=== PATIENT | male | born 1980 | race Caucasian/White ===

== ENCOUNTER 2021-08-08 14:17 | Inpatient (IN) | payer OTHER ==
[~2021-08-08] VITALS: Ht 175.3 cm; Wt 116.9 kg
[2021-08-08] MEDS ORDERED: PROPOFOL 100 ML IV ONE (14:42)
[2021-08-08] MEDS: PROPOFOL 100 ML IV PRN ×2 (14:50→17:42)
[2021-08-08] MEDS ORDERED: ETOMIDATE 20 MG/10 ML VIAL. IV ONE ×2 (15:00→19:36)
[2021-08-08] MEDS ORDERED: VECURONIUM BOLUS 10 MG VIAL. IV ONE ×2 (15:00→19:38)
[2021-08-08] MEDS ORDERED: SUCCINYLCHOLINE 200 MG/10 ML VIAL. IV ONE (15:00)
[2021-08-08] MEDS ORDERED: fentaNYL PF VIAL 100 MCG/2 ML VIAL IV PRN (15:00)
[2021-08-08] MEDS ORDERED: DEXAMETHASONE SOD PHOS 4 MG/ML VIAL IVP ONE (15:00)
[2021-08-08 15:02] LABS: BASO % 0 % (0-3); EOS % 0 % (0-3); HEMATOCRIT 42.2 % (39.0-53.0); HEMOGLOBIN 15.1 g/dL (13.0-17.5); LYMPH # 0.8 x10^3/uL (1.0-4.8); LYMPH % 8 % (24-48); MEAN CORPUSCULAR HEMOGLOBIN 31 pg (25-35); MEAN CORPUSCULAR HGB CONC 36 g/dL (31-37); MEAN CORPUSCULAR VOLUME 86 fL (79-100); MONO # 0.9 x10^3/uL (0.0-1.1); MONO % 9 % (0-9); NEUT # 8.2 x10^3/uL (1.8-7.7); NEUT % 83 % (31-73); PLATELET COUNT 223 x10^3/uL (140-400); RED BLOOD COUNT 4.88 x10^6/uL (4.30-5.70); RED CELL DISTRIBUTION WIDTH 12.9 % (11.5-14.5); WHITE BLOOD COUNT 9.9 x10^3/uL (4.0-11.0)
[2021-08-08 15:04] LABS: BILIRUBIN,URINE NEGATIVE (NEG); CLARITY,URINE CLEAR; COLOR,URINE AMBER; NITRITE,URINE NEGATIVE (NEG); PH,URINE 5.5 (<5.0-8.0); PROTEIN,URINE 100 mg/dL (NEG-TRACE); UROBILINOGEN,URINE 0.2 mg/dL (0.2 mg/dL)
[2021-08-08 15:15] LABS: BACTERIA,URINE 0 /HPF (0-FEW); GRANULAR CASTS,URINE MANY /HPF; WBC,URINE RARE /HPF (0-4)
[2021-08-08 15:16] LABS: CREATININE 1.5 mg/dL (0.7-1.3); GFR 52.1; POTASSIUM 4.2 mmol/L (3.5-5.1)
[2021-08-08 15:22] LABS: ALBUMIN 2.7 g/dL (3.4-5.0); ALBUMIN/GLOBULIN RATIO 0.6 (1.0-1.7); TOTAL BILIRUBIN 1.3 mg/dL (0.2-1.0); TOTAL PROTEIN 7.4 g/dL (6.4-8.2)
--- NOTE | 2021-08-08 15:25 | PHYS DOC ---
General Adult EDM: Chief Complaint: SHORTNESS OF BREATH HPI: HPI: Patient is a 41 year old male who presents from [facility] with respiratory distress. He tested positive for Covid. He has had symptoms for 1 week. He has had cough and shortness of breath. Per report he was diagnosed with a COVID-19 pneumonia. He was given azithromycin and prednisone for treatment. He continued to worsen and today showed signs of respiratory distress. When EMS arrived they applied 15 L nonrebreather and he was only able to maintain sats of 69%. Patient denies having chest pain. Speaking in one-word responses. But is alert and oriented. Patient denies any medical problems, chronic medications, or allergies. Per facility, was found satting 47% on room air. Nasal cannula only brought up to 50%. Nonrebreather brought up to 63%. Unknown date of positive Covid test Review of Systems: Review of Systems: Unable to complete full review of systems due to severe respiratory distress. Heart Score: C/O Chest Pain: No Risk Factors: Risk Factors: DM, Current or recent (<one month) smoker, HTN, HLP, family history of CAD, obesity. Risk Scores: Score 0 - 3: 2.5% MACE over next 6 weeks - Discharge Home Score 4 - 6: 20.3% MACE over next 6 weeks - Admit for Clinical Observation Score 7 - 10: 72.7% MACE over next 6 weeks - Early Invasive Strategies Current Medications: Current Medications Medications (Trade) Dose Ordered Sig/Magalis Start Time Stop Time Status Last Admin Dose Admin Chlorhexidine Gluconate (Peridex) 15 ml BID 08/08/21 21:00 Dexamethasone Sodium Phosphate (Decadron) 6 mg 1X ONCE 08/08/21 15:00 08/08/21 15:03 DC Etomidate (Amidate) 20 mg 1X ONCE 08/08/21 15:00 08/08/21 15:01 DC Fentanyl Citrate (Fentanyl 2ml Vial) 50 mcg PRN Q20MIN PRN 08/08/21 15:00 Midazolam HCl 100 ml @ 0 mls/hr CONT PRN 08/08/21 15:00 Propofol 100 ml @ 0 mls/hr CONT PRN 08/08/21 15:00 Succinylcholine Chloride (Anectine) 150 mg 1X ONCE 08/08/21 15:00 08/08/21 15:01 DC Vecuronium [place] (Norcuron Bolus) 6 mg 1X ONCE 08/08/21 15:00 08/08/21 15:01 DC Allergies: Allergies: Allergies Coded Allergies Type Severity Reaction Last Updated Verified No Known Drug Allergies 08/08/21 No Physical Exam: PE: Constitutional: In clear respiratory distress, respiratory rate in the 60s, accessory muscle usage, central cyanosis present.. [] Eyes: Pupils 3 mm, equal round, reactive to. [] Neck:supple, no stridor. [] Cardiovascular: Tachycardic. Regular rhythm, no murmur [] Lungs & Thorax: Bilateral crackles diffusely. As above respiratory distress with RR in 60s and signs of fatigue. O2 sat 70% on nonrebreather. BVM assisted ventilations only brought O2 sat to 80%. [] Abdomen: Bowel sounds normal, soft, no tenderness, no masses, no pulsatile masses. [] Skin: Warm, dry, no erythema, no rash. [] Back: No tenderness, no CVA tenderness. [] Extremities: No tenderness, no cyanosis, no clubbing, ROM intact, no edema. [] Neurologic: Alert and oriented X 3, normal motor function, normal sensory function, no focal deficits noted. [] Psychologic: Affect normal, judgement normal, mood normal. [] Current Patient Data: Labs: Laboratory Tests Test 08/08/21 14:39 White Blood Count 9.9 x10^3/uL (4.0-11.0) Red Blood Count 4.88 x10^6/uL (4.30-5.70) Hemoglobin 15.1 g/dL (13.0-17.5) Hematocrit 42.2 % (39.0-53.0) Mean Corpuscular Volume 86 fL (79-100) Mean Corpuscular Hemoglobin 31 pg (25-35) Mean Corpuscular Hemoglobin Concent 36 g/dL (31-37) Red Cell Distribution Width 12.9 % (11.5-14.5) Platelet Count 223 x10^3/uL (140-400) Neutrophils (%) (Auto) 83 % (31-73) H Lymphocytes (%) (Auto) 8 % (24-48) L Monocytes (%) (Auto) 9 % (0-9) Eosinophils (%) (Auto) 0 % (0-3) Basophils (%) (Auto) 0 % (0-3) Neutrophils # (Auto) 8.2 x10^3/uL (1.8-7.7) H Lymphocytes # (Auto) 0.8 x10^3/uL (1.0-4.8) L Monocytes # (Auto) 0.9 x10^3/uL (0.0-1.1) Eosinophils # (Auto) 0.0 x10^3/uL (0.0-0.7) Basophils # (Auto) 0.0 x10^3/uL (0.0-0.2) Laboratory Tests 08/08/21 14:39 Vital Signs: Vital Signs Date Time Temp Pulse Resp B/P (MAP) Pulse Ox O2 Delivery O2 Flow Rate FiO2 08/08/21 14:50 96 Ventilator EKG: EKG: Sinus rhythm. Rate 125. Normal axis. Normal intervals. No acute ST segment changes. No Q waves or T wave inversions. [] Radiology/Procedures: Radiology/Procedures: Wet read: Bilateral patchy opacities. ETT in appropriate position. OG tube below the diaphragm. [] [facility] [address] [place] [address] IMAGING REPORT Signed PATIENT: MARISEL RENEE ACCOUNT: [id number] : 1980 LOCATION: ER AGE: 41 SEX: M EXAM STATUS: REG ER ORD. PHYSICIAN: YAZMIN COLLADO MD REASON: COVID, POST-INTUBATION PROCEDURE: CHEST AP ONLY XR CHEST 1V CLINICAL INDICATIONS: Reason: COVID, POST-INTUBATION COMPARISON: None available. Findings: ET tube is in place and the tip is located 4 cm above the level of the bill. NG tube is in place and the tip is seen extending to the proximal body of the stomach. A short right IJ catheter is apparent and the tip is seen within the upper aspect of the right IJ. No pneumothorax is seen. Bilateral lung infiltrates or pulmonary edema are evident. No pneumothorax or pleural effusion is seen. The heart size and mediastinum are unremarkable. IMPRESSION: Bilateral lung infiltrates or pulmonary edema. No pneumothorax is seen. Tube/line placement as discussed above. Electronically signed by: Christophe Saeed MD (08/08/2021 3:38 PM) [id number] DICTATED and SIGNED BY: CHRISTOPHE SAEED MD DATE: 08/08/21 [id number] Impression: Indication: Respiratory failure Consent: Patient did give consent prior to intubation. Designated that he is full code. Medications Used: Etomidate 20 mg, succinylcholine 150 mg Procedure: The patient was placed in the appropriate position. Intubation was performed with a glide scope as for video laryngoscopy. 1st pass success. 7.5 endotracheal tube. Secured at 23 cm at the teeth. Initial confirmation of placement included bilateral breath sounds, tube fogging, adequate chest rise, adequate pulse oximetry reading. A chest x-ray to verify correct placement of the tube showed appropriate tube position. The patient tolerated the procedure well. Complications: Patient was hypoxic prior to intubation attempt and were unable to preoxygenate due to his respiratory failure. Despite no significant delay during the procedure, his O2 sat dropped to 33%. Recovered over several minutes to the high 80s with bag ventilation. ------ Indication: Need for vascular access. Consent: Emergent condition. Patient consented to treatment as needed prior to intubation. Vascular access was not specifically discussed.. Procedure: The patient was positioned appropriately and the skin over the right internal jugular was prepped and draped in a sterile fashion. Local anesthesia was used. Ultrasound guidance utilized. A large bore needle was used to identify the vein. A guide wire was then inserted into the vein through the needle. A triple lumen catheter was then inserted into the vessel over the guide wire using the Seldinger technique. All ports showed good, free flowing blood return and were flushed with saline solution. The catheter was then securely fastened to the skin with sutures and covered with a sterile dressing and B iopatch. A post procedure X-ray was ordered. 7 [place] 20 cm catheter 16 cm at the skin. The patient tolerated the procedure well. Complications: none. [] Course & Med Decision Making: Course & Med Decision Making Pertinent Labs and Imaging studies reviewed. (See chart for details) Patient a 41-year-old male without pertinent chronic medical history who presents in custody from [facility] in respiratory distress in the setting of a known COVID-19 infection. Prehospital O2 sats 69% with nonrebreather at 15 L/min. Tachycardic, but otherwise vital signs stable. On arrival he continues to be hypoxic, assisted BVM ventilations brought O2 sat only to 82% while starting an IV line. Due to severe respiratory distress he was intubated. Prior to intubation patient confirmed wishes for FULL CODE status. CXR c/w COVID 19 and ARDS. Dexamethasone IV ordered. Versed and propofol drips ordered. Fentanyl drip unavailable in the ED. Fentanyl and Versed boluses as needed. Due to persistent hypoxia vecuronium was given for paralysis to stabilize respiratory status. Pulmonary consult placed. Patient will be admitted to hospitalist ICU level care. --- dimer, trop, bnp all significantly elevated. With such signficiant hypoxia will obtain CTA to exclude PE, will also evaluate degree of lung injury. 1541 Critical care time: 70 minutes excluding procedures in the care of life- threatening respiratory failure in the setting COVID-19 infection. Dragon Disclaimer: Dragon Disclaimer: This electronic medical record was generated, in whole or in part, using a voice recognition dictation system. Departure Departure Impression: Primary Impression: Acute respiratory distress syndrome (ARDS) due to COVID-19 virus Additional Impressions: Hyponatremia NSTEMI (non-ST elevated myocardial infarction) Disposition: ADMITTED INPATIENT Condition: GRAVE Referrals: UNKNOWN PCP NAME (PCP) YAZMIN COLLADO MD Aug 08, 2021 15:25
[2021-08-08] MEDS ORDERED: fentaNYL PF VIAL 100 MCG/2 ML VIAL IVP ONE (15:30)
[2021-08-08] MEDS ORDERED: 0.9 % SODIUM CHLORIDE 10 ML DISP.SYRIN. IV PRN (15:30)
[2021-08-08] MEDS ORDERED: MIDAZOLAM HCL/PF 2 MG/2 ML VIAL. IV ONE ×2 (15:30)
[2021-08-08] MEDS ORDERED: ONDANSETRON PF 4 MG/2 ML VIAL. IVP PRN (15:30)
[2021-08-08] MEDS ORDERED: MORPHINE SULFATE 2 MG/ML INJ. IV PRN ×2 (15:30)
--- NOTE | 2021-08-08 15:40 | RAD ---
XR CHEST 1V CLINICAL INDICATIONS: Reason: COVID, POST-INTUBATION COMPARISON: None available. Findings: ET tube is in place and the tip is located 4 cm above the level of the bill. NG tube is i n place and the tip is seen extending to the proximal body of the stomach. A short right IJ catheter is apparent and the tip is seen within the upper aspect of the right IJ. No pneumothorax is seen. Gee ateral lung infiltrates or pulmonary edema are evident. No pneumothorax or pleural effusion is seen. The heart size and mediastinum are unremarkable. IMPRESSION: Bilateral lung infiltrates or pulmonary edema. No pneumothorax is seen. Tube/line placeme nt as discussed above. Electronically signed by: Tyrone Saeed MD (08/08/2021 3:38 PM) [id number]
[2021-08-08] MEDS: MIDAZOLAM 100mg/100ml NS BAG 100 ML IV PRN (15:43)
[2021-08-08] MEDS ORDERED: HEPARIN 25,000UTS/250ML PREMIX 250 ML IV PRN (15:45)
[2021-08-08] MEDS ORDERED: HEPARIN for IV BOLUS 10,000 UNIT/10 ML VIAL. IV ONE ×2 (15:45→16:00)
[2021-08-08] MEDS ORDERED: PIP/TAZO PER PHARMACY MC PRN (15:45)
[2021-08-08] MEDS ORDERED: HEPARIN for IV BOLUS 10,000 UNIT/10 ML VIAL. IV PRN ×2 (15:45)
[2021-08-08] MEDS: fentaNYL PF VIAL 100 MCG/2 ML VIAL IV PRN ×2 (15:46→16:29)
--- NOTE | 2021-08-08 15:47 | PDOC1 ---
History and Physical Date of Service: DOS: DATE: 08/08/21 TIME: 15:41 Chief Complaint: Problems: (1) Pneumonia due to COVID-19 virus (2) Respiratory failure History of Present Illness: HPI: Patient intubated and sedated upon my assessment thus H&P from emergency room b blessing Patient is a 41 year old male who presents from [facility] with respiratory distress. He tested positive for Covid. He has had symptoms for 1 week. He has had cough and shortness of breath. Per report he was diagnosed with a COVID-19 pneumonia. He was given azithromycin and prednisone for treatment. He continued to worsen and today showed signs of respiratory distress. When EMS arrived they applied 15 L nonrebreather and he was only able to maintain sats of 69%. Patient denies having chest pain. Speaking in one-word responses. But is alert and oriented. Patient denies any medical problems, chronic medications, or allergies. Code chill was found satting 47% on room air. Nasal cannula only brought up to 50%. Nonrebreather brought up to 63%. Unknown date of positive Covid test Past Medical/Surgical History: PMH/PSH: Unknown Allergies: Allergies: Coded Allergies: No Known Drug Allergies (Unverified , 08/08/21) Family History: Family History: Unknown Social History: Social History: Unknown Current Medications: Current Medications Current Medications Propofol 100 ml @ As Directed STK-MED ONCE IV ; Start 08/08/21 at 14:42; Stop 08/08/21 at 14:43; Status DC Fentanyl Citrate 30 ml @ 0 mls/hr CONT PRN IV SEE PROTOCOL; Start 08/08/21 at 15:00 Propofol 100 ml @ 0 mls/hr CONT PRN IV PER PROTOCOL; Start 08/08/21 at 15:00 Fentanyl Citrate (Fentanyl 2ml Vial) 25 mcg PRN Q20MIN PRN IV SEE COMMENTS; Start 08/08/21 at 15:00 Fentanyl Citrate (Fentanyl 2ml Vial) 50 mcg PRN Q20MIN PRN IV SEE COMMENTS; Start 08/08/21 at 15:00 Chlorhexidine Gluconate (Peridex) 15 ml BID MM ; Start 08/08/21 at 21:00 Midazolam HCl 100 ml @ 0 mls/hr CONT PRN IV SEE PROTOCOL; Start 08/08/21 at 15: 00 Vecuronium [place] (Norcuron Bolus) 6 mg 1X ONCE IV ; Start 08/08/21 at 15:00; Stop 08/08/21 at 15:01; Status DC Succinylcholine Chloride (Anectine) 150 mg 1X ONCE IV ; Start 08/08/21 at 15:00; Stop 08/08/21 at 15:01; Status DC Etomidate (Amidate) 20 mg 1X ONCE IV ; Start 08/08/21 at 15:00; Stop 08/08/21 at 15:01; Status DC Dexamethasone Sodium Phosphate (Decadron) 6 mg 1X ONCE IVP ; Start 08/08/21 at 15:00; Stop 08/08/21 at 15:03; Status DC Acetaminophen (Tylenol) 650 mg PRN Q6HRS PRN PO Headaches, Temp > 101.5'; Start 08/08/21 at 15:30 Lorazepam (Ativan) 1 mg PRN Q6HRS PRN PO ANXIETY / AGITATION; Start 08/08/21 at 15:30 Ondansetron HCl (Zofran) 4 mg PRN Q6HRS PRN IVP NAUSEA/VOMITING; Start 08/08/21 at 15:30 Famotidine (Pepcid Vial) 20 mg BID IVP ; Start 08/08/21 at 21:00 Info (Icu Electrolyte Protocol) 1 ea DAILY MC ; Start 08/09/21 at 09:00 Enoxaparin Sodium (Lovenox 40mg Syringe) 40 mg Q12HR SQ ; Start 08/08/21 at 21:00 Sodium Chloride (Normal Saline Flush) 3 ml QSHIFT PRN IV AFTER MEDS AND BLOOD DRAWS; Start 08/08/21 at 15:30 Morphine Sulfate (Morphine Sulfate) 1 mg PRN Q1HR PRN IV PAIN; Start 08/08/21 at 15:30 Morphine Sulfate (Morphine Sulfate) 2 mg PRN Q1HR PRN IV PAIN; Start 08/08/21 at 15:30 Senna/Docusate Sodium (Senna Plus) 1 tab BID PO ; Start 08/08/21 at 21:00 Midazolam HCl (Versed) 2 mg 1X ONCE IV ; Start 08/08/21 at 15:30; Stop 08/08/21 at 15:34; Status DC Midazolam HCl (Versed) 2 mg 1X ONCE IV ; Start 08/08/21 at 15:30; Stop 08/08/21 at 15:34; Status DC Fentanyl Citrate (Fentanyl 2ml Vial) 100 mcg 1X ONCE IVP ; Start 08/08/21 at 15:30; Stop 08/08/21 at 15:34; Status DC Dexamethasone Sodium Phosphate (Decadron) 6 mg DAILY IVP ; Start 08/09/21 at 09:00 Piperacillin Sod/ Tazobactam Sod (Zosyn Per Pharmacy) 1 each PRN DAILY PRN MC SEE COMMENTS; Start 08/08/21 at 15:45 Azithromycin (Zithromax) 500 mg 1X ONCE PO ; Start 08/08/21 at 16:00; Stop 08/08/21 at 16:01 Multivitamins/ Minerals Therapeutic (Centrum Multivit-Mineral Liq) 5 ml DAILY PEG ; Start 08/09/21 at 09:00 Aspirin (Ecotrin) 81 mg DAILYWBKFT PO ; Start 08/09/21 at 08:00 Remdesivir 200 mg/ Sodium Chloride 210 ml @ 210 mls/hr 1X ONCE IV ; Start 08/08/21 at 17:00; Stop 08/08/21 at 17:59 Remdesivir 100 mg/ Sodium Chloride 230 ml @ 460 mls/hr Q24H IV ; Start 08/09/21 at 17:00; Stop 08/12/21 at 17:29 ROS: Review of Systems Review of System Cannot obtain Physical Exam: Vital Signs: Vital Signs Date Time Temp Pulse Resp B/P (MAP) Pulse Ox O2 Delivery O2 Flow Rate FiO2 08/08/21 14:50 96 Ventilator Physcial Exam: GEN: Patient intubated and sedated HEENT: Normal cephalic, atraumatic, external auditory canals are patentpupil are equally round and reactive to light and accommodation HEMATOPOIETIC: No bruising NECK: Supple, no JVD, no thyromegaly was noted LUNGS: Patient on mechanical ventilation, breath sounds difficult to hear but are very coarse from what I can tell HEART: RRR, S1, S2 present. Peripheral pulses intact, no obvious murmurs noted ABDOMEN: Soft, nontender. Positive bowel sounds, no organomegaly, normal bowel sounds EXTREMITIES: Without clubbing, cyanosis, or edema. Pedal pulses intact. NEUROLOGIC: Intubated sedated PSYCHIATRIC: Cannot obtain SKIN: No ulcerations or rashes, good skin turgor, no jaundice VASCULAR: Good capillary refill, neurovascular bundle appears to be intact Labs: Labs: Laboratory Tests Test 08/08/21 14:39 White Blood Count 9.9 x10^3/uL (4.0-11.0) Red Blood Count 4.88 x10^6/uL (4.30-5.70) Hemoglobin 15.1 g/dL (13.0-17.5) Hematocrit 42.2 % (39.0-53.0) Mean Corpuscular Volume 86 fL (79-100) Mean Corpuscular Hemoglobin 31 pg (25-35) Mean Corpuscular Hemoglobin Concent 36 g/dL (31-37) Red Cell Distribution Width 12.9 % (11.5-14.5) Platelet Count 223 x10^3/uL (140-400) Neutrophils (%) (Auto) 83 % (31-73) Lymphocytes (%) (Auto) 8 % (24-48) Monocytes (%) (Auto) 9 % (0-9) Eosinophils (%) (Auto) 0 % (0-3) Basophils (%) (Auto) 0 % (0-3) Neutrophils # (Auto) 8.2 x10^3/uL (1.8-7.7) Lymphocytes # (Auto) 0.8 x10^3/uL (1.0-4.8) Monocytes # (Auto) 0.9 x10^3/uL (0.0-1.1) Eosinophils # (Auto) 0.0 x10^3/uL (0.0-0.7) Basophils # (Auto) 0.0 x10^3/uL (0.0-0.2) D-Dimer (Dia) 3.98 ug/mlFEU (0.00-0.50) Urine Collection Type U cath Urine Color Emily Urine Clarity Clear Urine pH 5.5 (<5.0-8.0) Urine Specific [place] 1.025 (1.000-1.030) Urine Protein 100 mg/dL (NEG-TRACE) Urine Glucose (UA) Negative mg/dL (NEG) Urine Ketones (Stick) 15 mg/dL (NEG) Urine Blood Large (NEG) Urine Nitrite Negative (NEG) Urine Bilirubin Negative (NEG) Urine Urobilinogen Dipstick 0.2 mg/dL (0.2 mg/dL) Urine Leukocyte Esterase Negative (NEG) Urine RBC 6-10 /HPF (0-2) Urine WBC Rare /HPF (0-4) Urine Squamous Epithelial Cells Occ /LPF Urine Bacteria 0 /HPF (0-FEW) Urine Granular Casts Many /HPF Sodium Level 128 mmol/L (136-145) Potassium Level 4.2 mmol/L (3.5-5.1) Chloride Level 91 mmol/L (98-107) Carbon Dioxide Level 23 mmol/L (21-32) Anion Gap 14 (6-14) Blood Urea Nitrogen 26 mg/dL (8-26) Creatinine 1.5 mg/dL (0.7-1.3) Estimated GFR (Cockcroft-Gault) 52.1 BUN/Creatinine Ratio 17 (6-20) Glucose Level 104 mg/dL (70-99) Calcium Level 8.0 mg/dL (8.5-10.1) Total Bilirubin 1.3 mg/dL (0.2-1.0) Aspartate Amino Transf (AST/SGOT) 361 U/L (15-37) Alanine Aminotransferase (ALT/SGPT) 224 U/L (16-63) Alkaline Phosphatase 68 U/L (46-116) Troponin I Quantitative 1.148 ng/mL (0.000-0.055) XH-Prq-B-Type Natriuretic Peptide 1363 pg/mL (0-124) Total Protein 7.4 g/dL (6.4-8.2) Albumin 2.7 g/dL (3.4-5.0) Albumin/Globulin Ratio 0.6 (1.0-1.7) Laboratory Tests Test 08/08/21 14:39 White Blood Count 9.9 x10^3/uL (4.0-11.0) Red Blood Count 4.88 x10^6/uL (4.30-5.70) Hemoglobin 15.1 g/dL (13.0-17.5) Hematocrit 42.2 % (39.0-53.0) Mean Corpuscular Volume 86 fL (79-100) Mean Corpuscular Hemoglobin 31 pg (25-35) Mean Corpuscular Hemoglobin Concent 36 g/dL (31-37) Red Cell Distribution Width 12.9 % (11.5-14.5) Platelet Count 223 x10^3/uL (140-400) Neutrophils (%) (Auto) 83 % (31-73) Lymphocytes (%) (Auto) 8 % (24-48) Monocytes (%) (Auto) 9 % (0-9) Eosinophils (%) (Auto) 0 % (0-3) Basophils (%) (Auto) 0 % (0-3) Neutrophils # (Auto) 8.2 x10^3/uL (1.8-7.7) Lymphocytes # (Auto) 0.8 x10^3/uL (1.0-4.8) Monocytes # (Auto) 0.9 x10^3/uL (0.0-1.1) Eosinophils # (Auto) 0.0 x10^3/uL (0.0-0.7) Basophils # (Auto) 0.0 x10^3/uL (0.0-0.2) D-Dimer (Dia) 3.98 ug/mlFEU (0.00-0.50) Urine Collection Type U cath Urine Color Emily Urine Clarity Clear Urine pH 5.5 (<5.0-8.0) Urine Specific [place] 1.025 (1.000-1.030) Urine Protein 100 mg/dL (NEG-TRACE) Urine Glucose (UA) Negative mg/dL (NEG) Urine Ketones (Stick) 15 mg/dL (NEG) Urine Blood Large (NEG) Urine Nitrite Negative (NEG) Urine Bilirubin Negative (NEG) Urine Urobilinogen Dipstick 0.2 mg/dL (0.2 mg/dL) Urine Leukocyte Esterase Negative (NEG) Urine RBC 6-10 /HPF (0-2) Urine WBC Rare /HPF (0-4) Urine Squamous Epithelial Cells Occ /LPF Urine Bacteria 0 /HPF (0-FEW) Urine Granular Casts Many /HPF Sodium Level 128 mmol/L (136-145) Potassium Level 4.2 mmol/L (3.5-5.1) Chloride Level 91 mmol/L (98-107) Carbon Dioxide Level 23 mmol/L (21-32) Anion Gap 14 (6-14) Blood Urea Nitrogen 26 mg/dL (8-26) Creatinine 1.5 mg/dL (0.7-1.3) Estimated GFR (Cockcroft-Gault) 52.1 BUN/Creatinine Ratio 17 (6-20) Glucose Level 104 mg/dL (70-99) Calcium Level 8.0 mg/dL (8.5-10.1) Total Bilirubin 1.3 mg/dL (0.2-1.0) Aspartate Amino Transf (AST/SGOT) 361 U/L (15-37) Alanine Aminotransferase (ALT/SGPT) 224 U/L (16-63) Alkaline Phosphatase 68 U/L (46-116) Troponin I Quantitative 1.148 ng/mL (0.000-0.055) GE-Pdy-R-Type Natriuretic Peptide 1363 pg/mL (0-124) Total Protein 7.4 g/dL (6.4-8.2) Albumin 2.7 g/dL (3.4-5.0) Albumin/Globulin Ratio 0.6 (1.0-1.7) Assessment/Plan Assessment/Plan Patient is 41-year-old rolled presented the emergency room today due to COVID-19 pneumonia with worsening oxygen status. Acute hypoxic respiratory failure secondary to Covid pneumonia, incarcerated patient, troponinemia concern for NSTEMI versus STEMI -Patient presented to emergency room today due to worsening Covid symptoms: Was diagnosed at his shelter had been treated with prednisone and azithromycin -Required endotracheal intubation in emergency room, sedated when evaluated -Covid [address] -Consult to pulmonary -ICU admission -Patient with very elevated troponins as well -Awaiting EKG, starting heparin drip trend troponins -Wean oxygen as tolerated -Wean sedation as tolerated Justifications for Admission Other Justification KYRA RUIZ MD Aug 08, 2021 15:47
[2021-08-08] MEDS ORDERED: AZITHROMYCIN 250 MG TABLET. PO ONE (16:00)
[2021-08-08] MEDS ORDERED: IV NORMAL SALINE 1000ML BAG 1,000 ML IV ONE (16:00)
[2021-08-08] MEDS ORDERED: MIDAZOLAM HCL/PF 5 MG/5 ML VIAL. IV ONE ×2 (16:15)
[2021-08-08] MEDS ORDERED: IOHEXOL 350 MG/ML 100 ML VIAL. IV ONE (16:45)
[2021-08-08] MEDS ORDERED: CONTRAST GIVEN. MC PRN (16:45)
[2021-08-08 16:50] LABS: BASE EXCESS COOX -2 mmol/L (-3-3); HCO3 COOX 25 mmol/L (21-28); METHEMOGLOBIN 0.7 % (0.0-1.9); OXYHEMOGLOBIN 92.6 %; PCO2 COOX 46 mmHg (35-46); PO2 COOX 82 mmHg (75-108); SAT O2 COOX 94 % (92-99)
[2021-08-08] MEDS ORDERED: REMDESIVIR LOAD in IV NORMAL SALINE 250ML TV IV ONE (17:00)
--- NOTE | 2021-08-08 17:41 | RAD ---
XR CHEST 1V Clinical History: Reason: s/p R IJ placement / Spl. Instructions: / History: Technique: AP view of the chest was obtained at 08/08/2021 5:33 PM. Comparison: 2:56 PM. Findings: There is been interval placement of right jugular line with its tip directed downward in the mid SVC. The intrarenal tube appears well-positioned with its tip in the midtrachea and enteric tube is again seen with its tip in the mid stomach. The heart is top normal limits in size. The pulmonary vessels appear somewhat full and congested and there is perihilar linear reticular opacities bilaterally. Impression: 1. Right jugular line well-positioned. No pneumothorax. 2. Bilateral pulmonary infiltrates appears moderately improved and could be resolving pulmonary edema . Electronically signed by: Thomas Flanagan III, MD (08/08/2021 5:39 PM) [id number]
[2021-08-08] MEDS: PIPERACILLIN/TAZOBACTAM 3.375 GM in IV NORMAL SALINE 50ML 50 ML IV SCH (17:46)
[2021-08-08] MEDS ORDERED: AZITHROMYCIN 500 MG in IV NORMAL SALINE 250ML 250 ML IV ONE (18:30)
--- NOTE | 2021-08-08 18:52 | EKG ---
[facility] [address] [place] [address] Test Date: 2021-08-08 Test Time: 15:51:32 Pat Name: MARISEL RENEE Department: Room: 112 1 Gender: M Floral Associate: : 1980 Requested By: KYRA RUIZ Order Number: [id number] Reading MD: Carlos Cardona Measurements Intervals Lindsay Rate: 125 P: 250 KS: 116 QRS: 71 QRSD: 86 T: 56 QT: 308 QTc: 446 Interpretive Statements SINUS TACHYCARDIA LEFT ATRIAL ABNORMALITY ABNORMAL ECG RI6.02 No previous ECG available for comparison Electronically Signed On 08-10-2021 13:23:23 CDT by Carlos Cardona
[2021-08-08 19:15] VITALS: BP 93/65
--- NOTE | 2021-08-08 19:24 | RAD ---
Exam: CT of chest with contrast INDICATION: Covid, hypoxia, elevated d-dimer TECHNIQUE: Sequential axial images through the chest obtained following the administration of 80 mL o f Omni 350 IV contrast. Sagittal and coronal reformatted images were reconstructed from the axial herman a and reviewed. 3-D reformatted images were reconstructed from the axial data and reviewed. Exposure: One or more of the following in the visualized dose reduction techniques were utilized for this examination: 1. Automated exposure control 2. Adjustment of the MA and/or KV according to patient size 3. Use of iterative of reconstructive technique Comparisons: Chest x-ray same day FINDINGS: Visualized portions of the thyroid are unremarkable. Several prominent but not enlarged mediastinal l ymph nodes are identified. Heart size is normal. No pericardial effusion. Thoracic aorta has a normal course and caliber. Pulmon benedict artery is not enlarged. No pulmonary embolus identified within the main, lobar or segmental pulmo nary arteries. Airways are patent. Endotracheal tube noted within the trachea. Extensive groundglass opacity noted l ungs bilaterally. No pneumothorax. No pleural effusion or thickening. Diffuse hepatic steatosis. Enteric tube with tip in the stomach. No suspicious osseous lesions or acute fractures. IMPRESSION: 1. No pulmonary embolus identified in the main, lobar or segmental pulmonary arteries. 2. Extensive bilateral airspace disease favored to be infectious or inflammatory in etiology. Electronically signed by: Kizzy Rodriguez MD (08/08/2021 7:21 PM) [facility]
[2021-08-08] MEDS ORDERED: SUCCINYLCHOLINE 200 MG/10 ML VIAL. ONE (19:36)
[2021-08-08 20:00] VITALS: BP 80/55
[2021-08-08 21:00] VITALS: BP 77/62
[2021-08-08] MEDS ORDERED: ENOXAPARIN 40 MG/0.4 ML SYRINGE. SQ SCH (21:00)
[2021-08-08] MEDS: HEPARIN 25,000UTS/250ML PREMIX 250 ML IV PRN (21:33)
[2021-08-08] MEDS: SENNOSIDES/DOCUSATE 8.6/50MG TABLET. PO SCH (21:58)
[2021-08-08] MEDS: CHLORHEXIDINE 0.12% 15 ML MOUTHWASH. MM SCH (21:58)
[2021-08-08] MEDS: FAMOTIDINE 20 MG/2 ML VIAL IVP SCH (21:59)
[2021-08-08 22:00] VITALS: BP 85/59
[2021-08-08 23:00] VITALS: BP 84/58
[2021-08-09] VITALS (24 sets, daily range): BP systolic 78–119; BP diastolic 46–66
[2021-08-09] MEDS: PIPERACILLIN/TAZOBACTAM 3.375 GM in IV NORMAL SALINE 50ML 50 ML IV SCH ×4 (00:07→16:57)
[2021-08-09 03:59] LABS: HEMATOCRIT 36.9 % (39.0-53.0); HEMOGLOBIN 12.8 g/dL (13.0-17.5); RED BLOOD COUNT 4.2 x10^6/uL (4.30-5.70); RED CELL DISTRIBUTION WIDTH 12.8 % (11.5-14.5); WHITE BLOOD COUNT 7.7 x10^3/uL (4.0-11.0)
[2021-08-09] MEDS ORDERED: ASPIRIN ENTERIC COATED 81 MG TABLET.DR. PO SCH (08:00)
[2021-08-09] MEDS: ASPIRIN CHEWABLE 81 MG TABLET. PO SCH (08:11)
[2021-08-09] MEDS: SENNOSIDES/DOCUSATE 8.6/50MG TABLET. PO SCH ×2 (08:11→21:12)
[2021-08-09] MEDS: CHLORHEXIDINE 0.12% 15 ML MOUTHWASH. MM SCH ×2 (08:11→21:12)
[2021-08-09] MEDS: MULTIVITAMINS,THERAPEUTIC 5 ML ORAL LIQUID. PEG SCH (08:12)
[2021-08-09] MEDS: DEXAMETHASONE SOD PHOS 4 MG/ML VIAL IVP SCH (08:16)
[2021-08-09] MEDS: FAMOTIDINE 20 MG/2 ML VIAL IVP SCH ×2 (08:17→21:12)
[2021-08-09 08:39] LABS: BASE EXCESS ABG 4 mmol/L (-3-3); HCO3 ABG 28 mmol/L (21-28); PCO2 ABG 43 mmHg (35-46); PO2 ABG 79 mmHg (75-108); SAT O2 ABG 95 % (92-99)
[2021-08-09 08:41] LABS: FIO2 ABG 100
[2021-08-09] MEDS: ELECTROLYTE (ICU) PROTOCOL. MC SCH (09:00)
--- NOTE | 2021-08-09 10:42 | PDOC ---
[employer] PROGRESS NOTE Date of Service DOS: DATE: 08/09/21 TIME: 10:36 Chief Complaint Chief Complaint Acute hypoxic respiratory failure secondary to over 19 pneumonia NSTEMI Incarceration -Patient presented to emergency room today due to worsening Covid symptoms: Was diagnosed at his care home had been treated with prednisone and azithromycin -Required endotracheal intubation in emergency room, sedated when evaluated -Covid [address] -Consult to pulmonary -ICU admission -Patient with very elevated troponins as well -Awaiting EKG, starting heparin drip trend troponins -Wean oxygen as tolerated -Wean sedation as tolerated History of Present Illness History of Present Illness Patient is a 41 year old male who [facility] with respiratory distress. He tested positive for Covid. He has had symptoms for 1 week. He has had cough and shortness of breath. Per report he was diagnosed with a COVID-19 pneumonia. He was given azithromycin and prednisone for treatment. He continued to worsen and today showed signs of respiratory distress. When EMS arrived they applied 15 L nonrebreather and he was only able to maintain sats of 69%. Patient denies having chest pain. Speaking in one-word responses. But is alert and oriented. Patient denies any medical problems, chronic medications, or allergies 08/09/2021: Patient seen and evaluated. Afebrile, on vent with FiO2 100%, PEEP 10. Tested COVID-19 positive prior to admission yesterday. We will continue treatment with COVID-19 pneumonia with remdesivir (day 2/5), Decadron 6 mg daily to complete 10-day course, and empiric antibiotics. Will maintain patient on heparin infusion due to elevated troponins. Will follow cardiology recommendations. Appreciate pulmonology and cardiology input on the management of this patient. Critical care time 30 minutes spent reviewing charts, reviewing labs, reviewing imaging, and discussion with RN. Vitals/I&O Vitals/I&O: Vital Signs Date Time Temp Pulse Resp B/P (MAP) Pulse Ox O2 Delivery O2 Flow Rate FiO2 08/09/21 09:00 82 20 91/56 (68) 97 Ventilator 08/09/21 08:00 98.0 98.0 08/08/21 19:38 25.0 I & O 08/08/21 08/08/21 08/09/21 15:00 23:00 07:00 Intake Total 1260 ml 552.72 ml Output Total 1360 ml 1110 ml Balance -100 ml -557.28 ml Physical Exam General: No acute distress, Other (Intubated and sedated) Heart: Regular rate Lungs: Crackles Abdomen: Soft, No tenderness Extremities: No clubbing, No cyanosis Skin: No rashes, No breakdown Labs Labs: Laboratory Tests Test 08/08/21 14:39 08/08/21 16:47 08/08/21 17:40 08/08/21 21:25 White Blood Count 9.9 x10^3/uL (4.0-11.0) Red Blood Count 4.88 x10^6/uL (4.30-5.70) Hemoglobin 15.1 g/dL (13.0-17.5) Hematocrit 42.2 % (39.0-53.0) Mean Corpuscular Volume 86 fL (79-100) Mean Corpuscular Hemoglobin 31 pg (25-35) Mean Corpuscular Hemoglobin Concent 36 g/dL (31-37) Red Cell Distribution Width 12.9 % (11.5-14.5) Platelet Count 223 x10^3/uL (140-400) Neutrophils (%) (Auto) 83 % (31-73) Lymphocytes (%) (Auto) 8 % (24-48) Monocytes (%) (Auto) 9 % (0-9) Eosinophils (%) (Auto) 0 % (0-3) Basophils (%) (Auto) 0 % (0-3) Neutrophils # (Auto) 8.2 x10^3/uL (1.8-7.7) Lymphocytes # (Auto) 0.8 x10^3/uL (1.0-4.8) Monocytes # (Auto) 0.9 x10^3/uL (0.0-1.1) Eosinophils # (Auto) 0.0 x10^3/uL (0.0-0.7) Basophils # (Auto) 0.0 x10^3/uL (0.0-0.2) D-Dimer (Dia) 3.98 ug/mlFEU (0.00-0.50) Urine Collection Type U cath Urine Color Emily Urine Clarity Clear Urine pH 5.5 (<5.0-8.0) Urine Specific [place] 1.025 (1.000-1.030) Urine Protein 100 mg/dL (NEG-TRACE) Urine Glucose (UA) Negative mg/dL (NEG) Urine Ketones (Stick) 15 mg/dL (NEG) Urine Blood Large (NEG) Urine Nitrite Negative (NEG) Urine Bilirubin Negative (NEG) Urine Urobilinogen Dipstick 0.2 mg/dL (0.2 mg/dL) Urine Leukocyte Esterase Negative (NEG) Urine RBC 6-10 /HPF (0-2) Urine WBC Rare /HPF (0-4) Urine Squamous Epithelial Cells Occ /LPF Urine Bacteria 0 /HPF (0-FEW) Urine Granular Casts Many /HPF Sodium Level 128 mmol/L (136-145) Potassium Level 4.2 mmol/L (3.5-5.1) Chloride Level 91 mmol/L (98-107) Carbon Dioxide Level 23 mmol/L (21-32) Anion Gap 14 (6-14) Blood Urea Nitrogen 26 mg/dL (8-26) Creatinine 1.5 mg/dL (0.7-1.3) Estimated GFR (Cockcroft-Gault) 52.1 BUN/Creatinine Ratio 17 (6-20) Glucose Level 104 mg/dL (70-99) Calcium Level 8.0 mg/dL (8.5-10.1) Total Bilirubin 1.3 mg/dL (0.2-1.0) Aspartate Amino Transf (AST/SGOT) 361 U/L (15-37) Alanine Aminotransferase (ALT/SGPT) 224 U/L (16-63) Alkaline Phosphatase 68 U/L (46-116) Creatine Kinase 5728 U/L (39-308) Troponin I Quantitative 1.148 ng/mL (0.000-0.055) 2.038 ng/mL (0.000-0.055) MN-Glw-P-Type Natriuretic Peptide 1363 pg/mL (0-124) Total Protein 7.4 g/dL (6.4-8.2) Albumin 2.7 g/dL (3.4-5.0) Albumin/Globulin Ratio 0.6 (1.0-1.7) O2 Saturation 94 % (92-99) Arterial Blood pH 7.35 (7.35-7.45) Arterial Blood pCO2 at Patient Temp 46 mmHg (35-46) Arterial Blood pO2 at Patient Temp 82 mmHg (75-108) Arterial Blood HCO3 25 mmol/L (21-28) Arterial Blood Base Excess -2 mmol/L (-3-3) Oxyhemoglobin 92.6 % Methemoglobin 0.7 % (0.0-1.9) Carbon Monoxide, Quantitative 0.3 % (0.0-1.9) FiO2 100 Lactic Acid Level 2.3 mmol/L (0.4-2.0) 1.7 mmol/L (0.4-2.0) Test 08/09/21 03:35 08/09/21 08:00 White Blood Count 7.7 x10^3/uL (4.0-11.0) Red Blood Count 4.20 x10^6/uL (4.30-5.70) Hemoglobin 12.8 g/dL (13.0-17.5) Hematocrit 36.9 % (39.0-53.0) Mean Corpuscular Volume 88 fL (79-100) Mean Corpuscular Hemoglobin 30 pg (25-35) Mean Corpuscular Hemoglobin Concent 35 g/dL (31-37) Red Cell Distribution Width 12.8 % (11.5-14.5) Platelet Count 178 x10^3/uL (140-400) Heparin Anti-Xa Act, Unfractionated 0.24 IU/mL (0.30-0.70) O2 Saturation 95 % (92-99) Arterial Blood pH 7.44 (7.35-7.45) Arterial Blood pCO2 at Patient Temp 43 mmHg (35-46) Arterial Blood pO2 at Patient Temp 79 mmHg (75-108) Arterial Blood HCO3 28 mmol/L (21-28) Arterial Blood Base Excess 4 mmol/L (-3-3) FiO2 100 Assessment and Plan Assessmemt and Plan Problems Medical Problems: (1) Acute respiratory distress syndrome (ARDS) due to COVID-19 virus Status: Acute (2) Hyponatremia Status: Acute (3) NSTEMI (non-ST elevated myocardial infarction) Status: Acute (4) Pneumonia due to COVID-19 virus Status: Acute (5) Respiratory failure Status: Acute Comment Review of Relevant I have reviewed the following items vincent (where applicable) has been applied. Medications: Current Medications Medications (Trade) Dose Ordered Sig/Magalis Route PRN Reason Start Time Stop Time Status Last Admin Dose Admin Fentanyl Citrate 30 ml @ 0 mls/hr CONT PRN IV SEE PROTOCOL 08/08/21 15:00 08/09/21 05:56 Propofol 100 ml @ 0 mls/hr CONT PRN IV PER PROTOCOL 08/08/21 15:00 08/08/21 17:42 Fentanyl Citrate (Fentanyl 2ml Vial) 50 mcg PRN Q20MIN PRN IV SEE COMMENTS 08/08/21 15:00 08/08/21 16:29 Chlorhexidine Gluconate (Peridex) 15 ml BID MM 08/08/21 21:00 08/09/21 08:11 Midazolam HCl 100 ml @ 0 mls/hr CONT PRN IV SEE PROTOCOL 08/08/21 15:00 08/08/21 15:43 Vecuronium [place] (Norcuron Bolus) 6 mg 1X ONCE IV 08/08/21 15:00 08/08/21 15:01 DC 08/08/21 15:58 Succinylcholine Chloride (Anectine) 150 mg 1X ONCE IV 08/08/21 15:00 08/08/21 15:01 DC 08/08/21 15:58 Etomidate (Amidate) 20 mg 1X ONCE IV 08/08/21 15:00 08/08/21 15:01 DC 08/08/21 15:57 Dexamethasone Sodium Phosphate (Decadron) 6 mg 1X ONCE IVP 08/08/21 15:00 08/08/21 15:03 DC 08/08/21 15:40 Famotidine (Pepcid Vial) 20 mg BID IVP 08/08/21 21:00 08/09/21 08:17 Senna/Docusate Sodium (Senna Plus) 1 tab BID PO 08/08/21 21:00 08/09/21 08:11 Fentanyl Citrate (Fentanyl 2ml Vial) 100 mcg 1X ONCE IVP 08/08/21 15:30 08/08/21 15:34 DC 08/08/21 16:03 Dexamethasone Sodium Phosphate (Decadron) 6 mg DAILY IVP 08/09/21 09:00 08/09/21 08:16 Multivitamins/ Minerals Therapeutic (Centrum Multivit-Mineral Liq) 5 ml DAILY PEG 08/09/21 09:00 08/09/21 08:12 Remdesivir 200 mg/ Sodium Chloride 210 ml @ 210 mls/hr 1X ONCE IV 08/08/21 17:00 08/08/21 17:59 DC 08/08/21 17:45 Heparin Sodium (Porcine) (Heparin Sodium) 4,000 unit 1X ONCE IV 08/08/21 16:00 08/08/21 16:01 DC 08/08/21 21:32 Heparin Sodium/ Dextrose 250 ml @ 9.6 mls/hr CONT PRN IV PER PROTOCOL 08/08/21 15:45 08/08/21 21:33 Piperacillin Sod/ Tazobactam Sod 3.375 gm/Sodium Chloride 50 ml @ 100 mls/hr Q6HRS IV 08/08/21 18:00 08/09/21 05:56 Sodium Chloride 1,000 ml @ 1,000 mls/hr 1X ONCE IV 08/08/21 16:00 08/08/21 16:59 DC 08/08/21 16:02 Midazolam HCl (Versed) 2 mg 1X ONCE IV 08/08/21 16:15 08/08/21 16:16 DC 08/08/21 17:53 Midazolam HCl (Versed) 2 mg 1X ONCE IV 08/08/21 16:15 08/08/21 16:16 DC 08/08/21 17:54 Iohexol (Omnipaque 350 Mg/ml) 80 ml 1X ONCE IV 08/08/21 16:45 08/08/21 16:46 DC 08/08/21 19:03 Azithromycin 500 mg/Sodium Chloride 250 ml @ 250 mls/hr 1X ONCE IV 08/08/21 18:30 08/08/21 19:29 DC 08/08/21 18:43 Aspirin (Aspirin Chewable) 81 mg DAILYWBKFT PO 08/09/21 08:00 08/09/21 08:11 Justifications for Admission Other Justification SANDRA GALLOWAY MD Aug 09, 2021 10:42
--- NOTE | 2021-08-09 10:56 | CONS ---
DATE OF CONSULTATION: 08/09/2021 PULMONARY CONSULTATION ATTENDING PHYSICIAN: Wade Trammell MD REASON FOR CONSULTATION: Respiratory failure, ARDS. HISTORY OF PRESENT ILLNESS: The patient is a 41-year-old prisoner from [facility]. He was tested positive for COVID. He had symptoms, which began a week ago. He was brought into the hospital with increasing dyspnea, hypoxia and respiratory distress. The patient was treated prior to the visit to the ER with azithromycin and prednisone without any improvement. The patient's saturation was 69% on a nonrebreather mask in the ER. The patient was intubated by ER physician. The patient underwent CT angiogram, which was reviewed by me. There was no evidence of pulmonary embolism. However, there were extensive diffuse bilateral infiltrates consistent with COVID-19 pneumonia. His arterial blood gases showed a pH of 7.35, pCO2 of 46 and a pO2 of 80-100% FiO2. On this morning, pO2 was 79. The patient was started on remdesivir and dexamethasone along with empiric antibiotic. He is currently sedated and receiving p.r.n. paralytics. I have been asked to see him for further evaluation. Currently on 100% oxygen and 10 of PEEP. PAST MEDICAL HISTORY: Is unknown. PAST SURGICAL HISTORY: Unknown. ALLERGIES: None. CURRENT MEDICATIONS: Reviewed as listed in the MRAD. REVIEW OF SYSTEMS: Unable to obtain from the patient. SOCIAL HISTORY: The patient comes from [facility]. PHYSICAL EXAMINATION: Vital signs reviewed. Systolic blood pressure in the high to low 90s. Afebrile, pulse ox 97%. Visual exam done due to COVID-19. No paradoxical breathing. No skin rash. No leg edema. He is obese. LABORATORY DATA: Reviewed. ABG discussed in my history of present illness. His CK is 5728. Troponin 2.0. D-dimer 3.9. White cell count 7.7, hemoglobin 12.6 and platelets are 178. IMPRESSION: 1. Acute hypoxic respiratory failure secondary to acute respiratory distress syndrome from COVID-[address] 2[address] chest with extensive and diffuse ground glass infiltrates throughout both lungs. No evidence of pulmonary embolism. No significant pleural effusion. 3. Increased CPK and troponin, possible rhabdomyolysis. 4. Increased liver function tests, likely secondary to COVID-19. We will monitor closely. 5. Moderate protein calorie malnutrition. RECOMMENDATIONS: 1. We will continue present assist control mode. Continue present PEEP. Make necessary adjustment based on ABGs. 2. Follow chest x-rays per protocol. 3. Continue empiric antibiotic. 4. Finish the course of remdesivir. 5. Finish the course of dexamethasone. 6. DVT prophylaxis with subcutaneous heparin. 7. Patient is critical. We will follow along with you. Discussed with RN and RT. LABS: Reviewed.IMAGING STUDIES: Reviewed. Total critical care time [address]: Janet TID: [id number] MTDD
[2021-08-09] MEDS: HEPARIN 25,000UTS/250ML PREMIX 250 ML IV PRN (12:16)
[2021-08-09] MEDS: MIDAZOLAM 100mg/100ml NS BAG 100 ML IV PRN ×2 (12:20→21:40)
--- NOTE | 2021-08-09 12:20 | PDOC2 ---
THADDEUS BAUTISTA [employer] 08/09/21 1220: CARDIAC CONSULT DATE OF CONSULT Date of Consult DATE: 08/09/21 TIME: 12:15 REASON FOR CONSULT Reason for Consult: Elevated troponin, intubated. COVID REFERRING PHYSICIAN Referring Physician: Dr. Trammell SOURCE Source: Chart review HISTORY OF PRESENT ILLNESS HISTORY OF PRESENT ILLNESS This is a 41 yo male who presented from correctional facility secondary to respiratory failure. Oxygen saturation was noted in the upper 40's. Required intubation due to respiratory failure. Is COVID +. Troponin level noted to be elevated, which prompted this consult. Is on heparin gtt. PAST MEDICAL HISTORY Past Medical History unknown PAST SURGICAL HISTORY Past Surgical History: Other (unknown ) FAMILY HISTORY Family History: Family History Unknown SOCIAL HISTORY Lives: Roommate (incarcerated ) CURRENT MEDICATIONS CURRENT MEDICATIONS Current Medications Medications (Trade) Dose Ordered Sig/Magalis Route PRN Reason Start Time Stop Time Status Last Admin Dose Admin Fentanyl Citrate 30 ml @ 0 mls/hr CONT PRN IV SEE PROTOCOL 08/08/21 15:00 08/09/21 05:56 Propofol 100 ml @ 0 mls/hr CONT PRN IV PER PROTOCOL 08/08/21 15:00 08/08/21 17:42 Fentanyl Citrate (Fentanyl 2ml Vial) 50 mcg PRN Q20MIN PRN IV SEE COMMENTS 08/08/21 15:00 08/08/21 16:29 Chlorhexidine Gluconate (Peridex) 15 ml BID MM 08/08/21 21:00 08/09/21 08:11 Midazolam HCl 100 ml @ 0 mls/hr CONT PRN IV SEE PROTOCOL 08/08/21 15:00 08/08/21 15:43 Vecuronium [place] (Norcuron Bolus) 6 mg 1X ONCE IV 08/08/21 15:00 08/08/21 15:01 DC 08/08/21 15:58 Succinylcholine Chloride (Anectine) 150 mg 1X ONCE IV 08/08/21 15:00 08/08/21 15:01 DC 08/08/21 15:58 Etomidate (Amidate) 20 mg 1X ONCE IV 08/08/21 15:00 08/08/21 15:01 DC 08/08/21 15:57 Dexamethasone Sodium Phosphate (Decadron) 6 mg 1X ONCE IVP 08/08/21 15:00 08/08/21 15:03 DC 08/08/21 15:40 Famotidine (Pepcid Vial) 20 mg BID IVP 08/08/21 21:00 08/09/21 08:17 Senna/Docusate Sodium (Senna Plus) 1 tab BID PO 08/08/21 21:00 08/09/21 08:11 Fentanyl Citrate (Fentanyl 2ml Vial) 100 mcg 1X ONCE IVP 08/08/21 15:30 08/08/21 15:34 DC 08/08/21 16:03 Dexamethasone Sodium Phosphate (Decadron) 6 mg DAILY IVP 08/09/21 09:00 08/09/21 08:16 Multivitamins/ Minerals Therapeutic (Centrum Multivit-Mineral Liq) 5 ml DAILY PEG 08/09/21 09:00 08/09/21 08:12 Remdesivir 200 mg/ Sodium Chloride 210 ml @ 210 mls/hr 1X ONCE IV 08/08/21 17:00 08/08/21 17:59 DC 08/08/21 17:45 Heparin Sodium (Porcine) (Heparin Sodium) 4,000 unit 1X ONCE IV 08/08/21 16:00 08/08/21 16:01 DC 08/08/21 21:32 Heparin Sodium/ Dextrose 250 ml @ 9.6 mls/hr CONT PRN IV PER PROTOCOL 08/08/21 15:45 08/08/21 21:33 Piperacillin Sod/ Tazobactam Sod 3.375 gm/Sodium Chloride 50 ml @ 100 mls/hr Q6HRS IV 08/08/21 18:00 08/09/21 05:56 Sodium Chloride 1,000 ml @ 1,000 mls/hr 1X ONCE IV 08/08/21 16:00 08/08/21 16:59 DC 08/08/21 16:02 Midazolam HCl (Versed) 2 mg 1X ONCE IV 08/08/21 16:15 08/08/21 16:16 DC 08/08/21 17:53 Midazolam HCl (Versed) 2 mg 1X ONCE IV 08/08/21 16:15 08/08/21 16:16 DC 08/08/21 17:54 Iohexol (Omnipaque 350 Mg/ml) 80 ml 1X ONCE IV 08/08/21 16:45 08/08/21 16:46 DC 08/08/21 19:03 Azithromycin 500 mg/Sodium Chloride 250 ml @ 250 mls/hr 1X ONCE IV 08/08/21 18:30 08/08/21 19:29 DC 08/08/21 18:43 Aspirin (Aspirin Chewable) 81 mg DAILYWBKFT PO 08/09/21 08:00 08/09/21 08:11 ALLERGIES ALLERGIES: Coded Allergies: No Known Drug Allergies (Unverified , 08/08/21) ROS Review of System unobtainable PHYSICAL EXAM General: Other (sedated) HEENT: Atraumatic Lungs: Other (MV) Heart: Regular rate Abdomen: Other (non-distended ) Skin: No significant lesion Neuro: Other (sedated ) Psych/Mental Status: Other (unable to assess) VITALS/I&O VITALS/I&O: Vital Signs Date Time Temp Pulse Resp B/P (MAP) Pulse Ox O2 Delivery O2 Flow Rate FiO2 08/09/21 12:02 93 Ventilator 08/09/21 11:00 72 20 90/47 (61) 08/09/21 08:00 98.0 98.0 08/08/21 19:38 25.0 I & O 08/08/21 08/08/21 08/09/21 15:00 23:00 07:00 Intake Total 1260 ml 552.72 ml Output Total 1360 ml 1110 ml Balance -100 ml -557.28 ml LABS Lab: Laboratory Tests Test 08/08/21 14:39 08/08/21 16:47 08/08/21 17:40 08/08/21 21:25 White Blood Count 9.9 x10^3/uL (4.0-11.0) Red Blood Count 4.88 x10^6/uL (4.30-5.70) Hemoglobin 15.1 g/dL (13.0-17.5) Hematocrit 42.2 % (39.0-53.0) Mean Corpuscular Volume 86 fL (79-100) Mean Corpuscular Hemoglobin 31 pg (25-35) Mean Corpuscular Hemoglobin Concent 36 g/dL (31-37) Red Cell Distribution Width 12.9 % (11.5-14.5) Platelet Count 223 x10^3/uL (140-400) Neutrophils (%) (Auto) 83 % (31-73) H Lymphocytes (%) (Auto) 8 % (24-48) L Monocytes (%) (Auto) 9 % (0-9) Eosinophils (%) (Auto) 0 % (0-3) Basophils (%) (Auto) 0 % (0-3) Neutrophils # (Auto) 8.2 x10^3/uL (1.8-7.7) H Lymphocytes # (Auto) 0.8 x10^3/uL (1.0-4.8) L Monocytes # (Auto) 0.9 x10^3/uL (0.0-1.1) Eosinophils # (Auto) 0.0 x10^3/uL (0.0-0.7) Basophils # (Auto) 0.0 x10^3/uL (0.0-0.2) D-Dimer (Dia) 3.98 ug/mlFEU (0.00-0.50) H Urine Collection Type U cath Urine Color Emily Urine Clarity Clear Urine pH 5.5 (<5.0-8.0) Urine Specific [place] 1.025 (1.000-1.030) Urine Protein 100 mg/dL (NEG-TRACE) Urine Glucose (UA) Negative mg/dL (NEG) Urine Ketones (Stick) 15 mg/dL (NEG) Urine Blood Large (NEG) Urine Nitrite Negative (NEG) Urine Bilirubin Negative (NEG) Urine Urobilinogen Dipstick 0.2 mg/dL (0.2 mg/dL) Urine Leukocyte Esterase Negative (NEG) Urine RBC 6-10 /HPF (0-2) Urine WBC Rare /HPF (0-4) Urine Squamous Epithelial Cells Occ /LPF Urine Bacteria 0 /HPF (0-FEW) Urine Granular Casts Many /HPF Sodium Level 128 mmol/L (136-145) L Potassium Level 4.2 mmol/L (3.5-5.1) Chloride Level 91 mmol/L (98-107) L Carbon Dioxide Level 23 mmol/L (21-32) Anion Gap 14 (6-14) Blood Urea Nitrogen 26 mg/dL (8-26) Creatinine 1.5 mg/dL (0.7-1.3) H Estimated GFR (Cockcroft-Gault) 52.1 BUN/Creatinine Ratio 17 (6-20) Glucose Level 104 mg/dL (70-99) H Calcium Level 8.0 mg/dL (8.5-10.1) L Total Bilirubin 1.3 mg/dL (0.2-1.0) H Aspartate Amino Transferase (AST) 361 U/L (15-37) H Alanine Aminotransferase (ALT) 224 U/L (16-63) H Alkaline Phosphatase 68 U/L (46-116) Creatine Kinase 5728 U/L (39-308) H Troponin I Quantitative 1.148 ng/mL (0.000-0.055) 2.038 ng/mL (0.000-0.055) RP-Stm-Q-Type Natriuretic Peptide 1363 pg/mL (0-124) H Total Protein 7.4 g/dL (6.4-8.2) Albumin 2.7 g/dL (3.4-5.0) L Albumin/Globulin Ratio 0.6 (1.0-1.7) L O2 Saturation 94 % (92-99) Arterial Blood pH 7.35 (7.35-7.45) Arterial Blood pCO2 at Patient Temp 46 mmHg (35-46) Arterial Blood pO2 at Patient Temp 82 mmHg (75-108) Arterial Blood HCO3 25 mmol/L (21-28) Arterial Blood Base Excess -2 mmol/L (-3-3) Oxyhemoglobin 92.6 % Methemoglobin 0.7 % (0.0-1.9) Carbon Monoxide, Quantitative 0.3 % (0.0-1.9) FiO2 100 Lactic Acid Level 2.3 mmol/L (0.4-2.0) H 1.7 mmol/L (0.4-2.0) Test 08/09/21 03:35 08/09/21 08:00 White Blood Count 7.7 x10^3/uL (4.0-11.0) Red Blood Count 4.20 x10^6/uL (4.30-5.70) L Hemoglobin 12.8 g/dL (13.0-17.5) L Hematocrit 36.9 % (39.0-53.0) L Mean Corpuscular Volume 88 fL (79-100) Mean Corpuscular Hemoglobin 30 pg (25-35) Mean Corpuscular Hemoglobin Concent 35 g/dL (31-37) Red Cell Distribution Width 12.8 % (11.5-14.5) Platelet Count 178 x10^3/uL (140-400) Heparin Anti-Xa Act, Unfractionated 0.24 IU/mL (0.30-0.70) L O2 Saturation 95 % (92-99) Arterial Blood pH 7.44 (7.35-7.45) Arterial Blood pCO2 at Patient Temp 43 mmHg (35-46) Arterial Blood pO2 at Patient Temp 79 mmHg (75-108) Arterial Blood HCO3 28 mmol/L (21-28) Arterial Blood Base Excess 4 mmol/L (-3-3) H FiO2 100 Laboratory Tests 08/08/21 14:39 08/09/21 03:35 Laboratory Tests 08/08/21 14:39 ASSESSMENT/PLAN ASSESSMENT/PLAN 1. Acute respiratory failure secondary to COVID PNA 2. NSTEMI; trop 2. Most probably type II, demand ischemia secondary to above. o n heparin gtt 3. PAMELA 4. Hyponatremia 5. Elevated LFTs Recommendations ASA therapy Continued heparin gtt for 48hrs Ongoing lung optimization, treatment of PNA Outpatient echo and ischemic evaluation once recovered from COVID Supportive care PARMINDER COKER MD 08/09/21 1535: CARDIAC CONSULT ASSESSMENT/PLAN ASSESSMENT/PLAN Agree with [employer]AC[employer] CHECKOUT CLERK's assessment and plan. Acute respiratory failure secondary to Covid pneumonia. Continue vent managem ent per pulmonary team. Troponin elevation most probably demand ischemia. Continue heparin infusion for 48 hours. Plan 2D echo and ischemic evaluation once he recovers from Covid pneumonia. Thank you for your consultation THADDEUS BAUTISTA APRN Aug 09, 2021 12:20 PARMINDER COKER MD Aug 09, 2021 15:35
[2021-08-09] MEDS: NOREPINEPHRINE VIAL 8 MG in IV DEXTROSE 5% 250 ML IV PRN (13:19)
[2021-08-09] MEDS: REMDESIVIR 100mg in NORMAL SALINE 250ML X 4 DAYS IV SCH (16:57)
[2021-08-09] MEDS ORDERED: VECURONIUM BOLUS 10 MG VIAL. IV ONE (18:36)
[2021-08-09] MEDS: VECURONIUM BOLUS 10 MG VIAL. IV PRN (18:44)
[2021-08-09 18:45] LABS: CHOLESTEROL/HDL RATIO 2.8
[2021-08-10] VITALS (24 sets, daily range): BP systolic 85–118; BP diastolic 49–66
[2021-08-10] MEDS: PIPERACILLIN/TAZOBACTAM 3.375 GM in IV NORMAL SALINE 50ML 50 ML IV SCH ×4 (00:02→17:05)
[2021-08-10] MEDS: PROPOFOL 100 ML IV PRN ×4 (00:59→18:02)
[2021-08-10] MEDS: HEPARIN 25,000UTS/250ML PREMIX 250 ML IV PRN ×2 (02:12→11:20)
[2021-08-10] MEDS: fentaNYL HIGH DOSE PCA 55 ML IV PRN (03:23)
--- NOTE | 2021-08-10 08:05 | PDOC ---
[employer] PROGRESS NOTE Date of Service DOS: DATE: 08/10/21 TIME: 07:59 Chief Complaint Chief Complaint Acute hypoxic respiratory failure secondary to over 19 pneumonia NSTEMI Incarceration -Patient presented to emergency room today due to worsening Covid symptoms: Was diagnosed at his long[facility]term had been treated with prednisone and azithromycin -Required endotracheal intubation in emergency room, sedated when evaluated -Covid [address] -Consult to pulmonary -ICU admission -Patient with very elevated troponins as well -Awaiting EKG, starting heparin drip trend troponins -Wean oxygen as tolerated -Wean sedation as tolerated History of Present Illness History of Present Illness Patient is a 41 year old male who presents from [facility] with respiratory distress. He tested positive for Covid. He has had symptoms for 1 week. He has had cough and shortness of breath. Per report he was diagnosed with a COVID-19 pneumonia. He was given azithromycin and prednisone for treatment. He continued to worsen and today showed signs of respiratory distress. When EMS arrived they applied 15 L nonrebreather and he was only able to maintain sats of 69%. Patient denies having chest pain. Speaking in one-word responses. But is alert and oriented. Patient denies any medical problems, chronic medications, or allergies 08/09/2021: Patient seen and evaluated. Afebrile, on vent with FiO2 100%, PEEP 10. Tested COVID-19 positive prior to admission yesterday. We will continue treatment with COVID-19 pneumonia with remdesivir (day 2/5), Decadron 6 mg daily to complete 10-day course, and empiric antibiotics. Will maintain patient on heparin infusion due to elevated troponins. Will follow cardiology recommendations. Appreciate pulmonology and cardiology input on the management of this patient. Critical care time 30 minutes spent reviewing charts, reviewing labs, reviewing imaging, and discussion with RN. 08/10/2021: Afebrile. On ventilator with FiO2 100%, PEEP 10. Highest troponin levels 2.038. Per cardiology, probably demand ischemia. Continue heparin infusion for 48 hours, and TTE once COVID-19 recovered. Continue remdesivir for full course. Continue Decadron and empiric antibiotics. Critical care time 30 minutes spent reviewing charts, reviewing labs, reviewing imaging, and discussion with RN. Vitals/I&O Vitals/I&O: Vital Signs Date Time Temp Pulse Resp B/P (MAP) Pulse Ox O2 Delivery O2 Flow Rate FiO2 08/10/21 07:00 69 22 85/51 (62) 96 Ventilator 08/10/21 04:00 98.6 98.6 08/10/21 03:23 25.0 I & O 08/09/21 08/09/21 08/10/21 15:00 23:00 07:00 Intake Total 100 ml 1671.11 ml Output Total 505 ml 550 ml 425 ml Balance -505 ml -450 ml 1246.11 ml Physical Exam General: Other (sedated) Heart: Regular rate Lungs: Crackles, Other (Intubated on vent) Abdomen: Other (non-distended ) Extremities: No clubbing, No cyanosis Skin: No significant lesion Labs Labs: Laboratory Tests Test 08/09/21 08:00 08/09/21 12:56 08/09/21 18:18 08/10/21 01:15 O2 Saturation 95 % (92-99) Arterial Blood pH 7.44 (7.35-7.45) Arterial Blood pCO2 at Patient Temp 43 mmHg (35-46) Arterial Blood pO2 at Patient Temp 79 mmHg (75-108) Arterial Blood HCO3 28 mmol/L (21-28) Arterial Blood Base Excess 4 mmol/L (-3-3) FiO2 100 Heparin Anti-Xa Act, Unfractionated 0.22 IU/mL (0.30-0.70) 0.29 IU/mL (0.30-0.70) 0.36 IU/mL (0.30-0.70) Assessment and Plan Assessmemt and Plan Problems Medical Problems: (1) Acute respiratory distress syndrome (ARDS) due to COVID-19 virus Status: Acute (2) Hyponatremia Status: Acute (3) NSTEMI (non-ST elevated myocardial infarction) Status: Acute (4) Pneumonia due to COVID-19 virus Status: Acute (5) Respiratory failure Status: Acute Comment Review of Relevant I have reviewed the following items vincent (where applicable) has been applied. Medications: Current Medications Medications (Trade) Dose Ordered Sig/Magalis Route PRN Reason Start Time Stop Time Status Last Admin Dose Admin Dexamethasone Sodium Phosphate (Decadron) 6 mg DAILY IVP 08/09/21 09:00 08/09/21 08:16 Multivitamins/ Minerals Therapeutic (Centrum Multivit-Mineral Liq) 5 ml DAILY PEG 08/09/21 09:00 08/09/21 08:12 Remdesivir 100 mg/ Sodium Chloride 230 ml @ 460 mls/hr Q24H IV 08/09/21 17:00 08/12/21 17:29 08/09/21 16:57 Aspirin (Aspirin Chewable) 81 mg [id number] PO 08/09/21 08:00 08/09/21 08:11 Norepinephrine Bitartrate 8 mg/ Dextrose 258 ml @ 10.913 mls/ hr CONT PRN IV PER PROTOCOL 08/09/21 13:15 08/09/21 13:19 Vecuronium [place] (Norcuron Bolus) 6 mg PRN Q6HRS PRN IV VENTILATOR COMPLIANCE 08/09/21 18:45 08/09/21 18:44 Fentanyl Citrate 55 ml @ 0 mls/hr CONT PRN PRN IV PAIN/SEDATION 08/10/21 03:00 08/10/21 03:23 Justifications for Admission Other Justification SANDRA GALLOWAY MD Aug 10, 2021 08:05
[2021-08-10 08:11] LABS: BASE EXCESS ABG 0 mmol/L (-3-3); HCO3 ABG 25 mmol/L (21-28); PCO2 ABG 41 mmHg (35-46); PO2 ABG 57 mmHg (75-108); SAT O2 ABG 89 % (92-99)
[2021-08-10 08:14] LABS: ALBUMIN 1.8 g/dL (3.4-5.0); ALBUMIN/GLOBULIN RATIO 0.5 (1.0-1.7); CALCIUM 6.8 mg/dL (8.5-10.1); CREATININE 0.8 mg/dL (0.7-1.3); GFR 107.6; POTASSIUM 4.5 mmol/L (3.5-5.1); TOTAL BILIRUBIN 0.5 mg/dL (0.2-1.0); TOTAL PROTEIN 5.6 g/dL (6.4-8.2)
[2021-08-10] MEDS: CHLORHEXIDINE 0.12% 15 ML MOUTHWASH. MM SCH ×2 (08:34→20:57)
[2021-08-10] MEDS: ASPIRIN CHEWABLE 81 MG TABLET. PO SCH (08:34)
[2021-08-10] MEDS: MULTIVITAMINS,THERAPEUTIC 5 ML ORAL LIQUID. PEG SCH (08:34)
[2021-08-10] MEDS: MIDAZOLAM 100mg/100ml NS BAG 100 ML IV PRN ×2 (08:35→20:00)
[2021-08-10] MEDS: SENNOSIDES/DOCUSATE 8.6/50MG TABLET. PO SCH ×2 (08:35→20:57)
[2021-08-10] MEDS: DEXAMETHASONE SOD PHOS 4 MG/ML VIAL IVP SCH (08:35)
[2021-08-10] MEDS: FAMOTIDINE 20 MG/2 ML VIAL IVP SCH ×2 (08:35→20:57)
[2021-08-10 08:37] LABS: FIO2 ABG 100/VENT
[2021-08-10] MEDS: ELECTROLYTE (ICU) PROTOCOL. MC SCH (09:00)
--- NOTE | 2021-08-10 11:07 | PDOC ---
PULMONARY PROGRESS NOTES DATE: 08/10/21 TIME: 11:05 Subjective Remains intubated and sedated On assist control mode Vitals Vital Signs Date Time Temp Pulse Resp B/P (MAP) Pulse Ox O2 Delivery O2 Flow Rate FiO2 08/10/21 10:01 97 Ventilator 08/10/21 10:00 65 22 106/63 (77) 08/10/21 08:00 98.8 98.8 08/10/21 03:23 25.0 Comments Visual exam done due to COVID-19 pneumonia. No paradoxical breathing. Is in sync with the ventilator. No skin rash no leg edema Labs Laboratory Tests Test 08/08/21 14:39 08/08/21 16:47 08/08/21 17:40 08/08/21 21:25 White Blood Count 9.9 x10^3/uL (4.0-11.0) Red Blood Count 4.88 x10^6/uL (4.30-5.70) Hemoglobin 15.1 g/dL (13.0-17.5) Hematocrit 42.2 % (39.0-53.0) Mean Corpuscular Volume 86 fL (79-100) Mean Corpuscular Hemoglobin 31 pg (25-35) Mean Corpuscular Hemoglobin Concent 36 g/dL (31-37) Red Cell Distribution Width 12.9 % (11.5-14.5) Platelet Count 223 x10^3/uL (140-400) Neutrophils (%) (Auto) 83 % (31-73) Lymphocytes (%) (Auto) 8 % (24-48) Monocytes (%) (Auto) 9 % (0-9) Eosinophils (%) (Auto) 0 % (0-3) Basophils (%) (Auto) 0 % (0-3) Neutrophils # (Auto) 8.2 x10^3/uL (1.8-7.7) Lymphocytes # (Auto) 0.8 x10^3/uL (1.0-4.8) Monocytes # (Auto) 0.9 x10^3/uL (0.0-1.1) Eosinophils # (Auto) 0.0 x10^3/uL (0.0-0.7) Basophils # (Auto) 0.0 x10^3/uL (0.0-0.2) D-Dimer (Dia) 3.98 ug/mlFEU (0.00-0.50) Urine Collection Type U cath Urine Color Emily Urine Clarity Clear Urine pH 5.5 (<5.0-8.0) Urine Specific [place] 1.025 (1.000-1.030) Urine Protein 100 mg/dL (NEG-TRACE) Urine Glucose (UA) Negative mg/dL (NEG) Urine Ketones (Stick) 15 mg/dL (NEG) Urine Blood Large (NEG) Urine Nitrite Negative (NEG) Urine Bilirubin Negative (NEG) Urine Urobilinogen Dipstick 0.2 mg/dL (0.2 mg/dL) Urine Leukocyte Esterase Negative (NEG) Urine RBC 6-10 /HPF (0-2) Urine WBC Rare /HPF (0-4) Urine Squamous Epithelial Cells Occ /LPF Urine Bacteria 0 /HPF (0-FEW) Urine Granular Casts Many /HPF Sodium Level 128 mmol/L (136-145) Potassium Level 4.2 mmol/L (3.5-5.1) Chloride Level 91 mmol/L (98-107) Carbon Dioxide Level 23 mmol/L (21-32) Anion Gap 14 (6-14) Blood Urea Nitrogen 26 mg/dL (8-26) Creatinine 1.5 mg/dL (0.7-1.3) Estimated GFR (Cockcroft-Gault) 52.1 BUN/Creatinine Ratio 17 (6-20) Glucose Level 104 mg/dL (70-99) Calcium Level 8.0 mg/dL (8.5-10.1) Total Bilirubin 1.3 mg/dL (0.2-1.0) Aspartate Amino Transf (AST/SGOT) 361 U/L (15-37) Alanine Aminotransferase (ALT/SGPT) 224 U/L (16-63) Alkaline Phosphatase 68 U/L (46-116) Creatine Kinase 5728 U/L (39-308) Troponin I Quantitative 1.148 ng/mL (0.000-0.055) 2.038 ng/mL (0.000-0.055) PQ-Itx-Q-Type Natriuretic Peptide 1363 pg/mL (0-124) Total Protein 7.4 g/dL (6.4-8.2) Albumin 2.7 g/dL (3.4-5.0) Albumin/Globulin Ratio 0.6 (1.0-1.7) O2 Saturation 94 % (92-99) Arterial Blood pH 7.35 (7.35-7.45) Arterial Blood pCO2 at Patient Temp 46 mmHg (35-46) Arterial Blood pO2 at Patient Temp 82 mmHg (75-108) Arterial Blood HCO3 25 mmol/L (21-28) Arterial Blood Base Excess -2 mmol/L (-3-3) Oxyhemoglobin 92.6 % Methemoglobin 0.7 % (0.0-1.9) Carbon Monoxide, Quantitative 0.3 % (0.0-1.9) FiO2 100 Lactic Acid Level 2.3 mmol/L (0.4-2.0) 1.7 mmol/L (0.4-2.0) Test 08/09/21 03:30 08/09/21 03:35 08/09/21 08:00 08/09/21 12:56 Triglycerides Level 104 mg/dL (0-150) Cholesterol Level 61 mg/dL (0-200) LDL Cholesterol, Calculated 18 mg/dL (0-100) VLDL Cholesterol, Calculated 21 mg/dL (0-40) Non-HDL Cholesterol Calculated 39 mg/dL (0-129) HDL Cholesterol 22 mg/dL (40-60) Cholesterol/HDL Ratio 2.8 White Blood Count 7.7 x10^3/uL (4.0-11.0) Red Blood Count 4.20 x10^6/uL (4.30-5.70) Hemoglobin 12.8 g/dL (13.0-17.5) Hematocrit 36.9 % (39.0-53.0) Mean Corpuscular Volume 88 fL (79-100) Mean Corpuscular Hemoglobin 30 pg (25-35) Mean Corpuscular Hemoglobin Concent 35 g/dL (31-37) Red Cell Distribution Width 12.8 % (11.5-14.5) Platelet Count 178 x10^3/uL (140-400) Heparin Anti-Xa Act, Unfractionated 0.24 IU/mL (0.30-0.70) 0.22 IU/mL (0.30-0.70) O2 Saturation 95 % (92-99) Arterial Blood pH 7.44 (7.35-7.45) Arterial Blood pCO2 at Patient Temp 43 mmHg (35-46) Arterial Blood pO2 at Patient Temp 79 mmHg (75-108) Arterial Blood HCO3 28 mmol/L (21-28) Arterial Blood Base Excess 4 mmol/L (-3-3) FiO2 100 Test 08/09/21 18:18 08/10/21 01:15 08/10/21 07:30 08/10/21 08:00 Heparin Anti-Xa Act, Unfractionated 0.29 IU/mL (0.30-0.70) 0.36 IU/mL (0.30-0.70) 0.28 IU/mL (0.30-0.70) Sodium Level 138 mmol/L (136-145) Potassium Level 4.5 mmol/L (3.5-5.1) Chloride Level 105 mmol/L (98-107) Carbon Dioxide Level 30 mmol/L (21-32) Anion Gap 3 (6-14) Blood Urea Nitrogen 18 mg/dL (8-26) Creatinine 0.8 mg/dL (0.7-1.3) Estimated GFR (Cockcroft-Gault) 107.6 BUN/Creatinine Ratio 23 (6-20) Glucose Level 131 mg/dL (70-99) Calcium Level 6.8 mg/dL (8.5-10.1) Total Bilirubin 0.5 mg/dL (0.2-1.0) Aspartate Amino Transf (AST/SGOT) 97 U/L (15-37) Alanine Aminotransferase (ALT/SGPT) 126 U/L (16-63) Alkaline Phosphatase 75 U/L (46-116) Total Protein 5.6 g/dL (6.4-8.2) Albumin 1.8 g/dL (3.4-5.0) Albumin/Globulin Ratio 0.5 (1.0-1.7) O2 Saturation 89 % (92-99) Arterial Blood pH 7.40 (7.35-7.45) Arterial Blood pCO2 at Patient Temp 41 mmHg (35-46) Arterial Blood pO2 at Patient Temp 57 mmHg (75-108) Arterial Blood HCO3 25 mmol/L (21-28) Arterial Blood Base Excess 0 mmol/L (-3-3) FiO2 100/vent Laboratory Tests Test 08/09/21 12:56 08/09/21 18:18 08/10/21 01:15 08/10/21 07:30 Heparin Anti-Xa Act, Unfractionated 0.22 IU/mL (0.30-0.70) 0.29 IU/mL (0.30-0.70) 0.36 IU/mL (0.30-0.70) 0.28 IU/mL (0.30-0.70) Sodium Level 138 mmol/L (136-145) Potassium Level 4.5 mmol/L (3.5-5.1) Chloride Level 105 mmol/L (98-107) Carbon Dioxide Level 30 mmol/L (21-32) Anion Gap 3 (6-14) Blood Urea Nitrogen 18 mg/dL (8-26) Creatinine 0.8 mg/dL (0.7-1.3) Estimated GFR (Cockcroft-Gault) 107.6 BUN/Creatinine Ratio 23 (6-20) Glucose Level 131 mg/dL (70-99) Calcium Level 6.8 mg/dL (8.5-10.1) Total Bilirubin 0.5 mg/dL (0.2-1.0) Aspartate Amino Transf (AST/SGOT) 97 U/L (15-37) Alanine Aminotransferase (ALT/SGPT) 126 U/L (16-63) Alkaline Phosphatase 75 U/L (46-116) Total Protein 5.6 g/dL (6.4-8.2) Albumin 1.8 g/dL (3.4-5.0) Albumin/Globulin Ratio 0.5 (1.0-1.7) Test 08/10/21 08:00 O2 Saturation 89 % (92-99) Arterial Blood pH 7.40 (7.35-7.45) Arterial Blood pCO2 at Patient Temp 41 mmHg (35-46) Arterial Blood pO2 at Patient Temp 57 mmHg (75-108) Arterial Blood HCO3 25 mmol/L (21-28) Arterial Blood Base Excess 0 mmol/L (-3-3) FiO2 100/vent Impression . 1. Acute hypoxic respiratory failure secondary to acute respiratory distress syndrome from COVID-[address] 2[address] chest with extensive and diffuse ground glass infiltrates throughout both lungs. No evidence of pulmonary embolism. No significant pleural effusion. 3. Increased CPK and troponin, possible rhabdomyolysis. 4. Increased liver function tests, likely secondary to COVID-19. We will monitor closely. 5. Moderate protein calorie malnutrition. Plan . 1. We will continue present assist control mode. Continue present PEEP. Make necessary adjustment based on ABGs. 2. Follow chest x-rays per protocol. 3. Continue empiric antibiotic. 4. Finish the course of remdesivir. 5. Finish the course of dexamethasone. 6. DVT prophylaxis with subcutaneous heparin. 7. Patient is critical. We will follow along with you. Discussed with RN and RT. 8. LFTs improving 9. Start enteral nutrition. Critical care time 30 minutes CLYDE KANG MD Aug 10, 2021 11:07
--- NOTE | 2021-08-10 11:19 | PDOC ---
THADDEUS BAUTISTA [employer] 08/10/21 1119: CARDIO Progress Notes Date and Time Date of Service 08/10/21 Time of Evaluation 1115 Subjective Subjective: Other (intubated ) Vitals Vitals Vital Signs Date Time Temp Pulse Resp B/P (MAP) Pulse Ox O2 Delivery O2 Flow Rate FiO2 08/10/21 11:00 66 22 108/61 (77) 94 Ventilator 08/10/21 08:00 98.8 98.8 08/10/21 03:23 25.0 Weight Weight [ ] Input and Output Intake and Output Intake and Output 08/10/21 07:00 Intake Total 1771.11 ml Output Total 1480 ml Balance 291.11 ml Intake IV Total 1290.11 ml Tube Feeding 481 ml Output Urine Total 1480 ml Gastric Drainage Total 0 ml Laboratory Labs Laboratory Tests Test 08/09/21 12:56 08/09/21 18:18 08/10/21 01:15 08/10/21 07:30 Heparin Anti-Xa Act, Unfractionated 0.22 IU/mL (0.30-0.70) 0.29 IU/mL (0.30-0.70) 0.36 IU/mL (0.30-0.70) 0.28 IU/mL (0.30-0.70) Sodium Level 138 mmol/L (136-145) Potassium Level 4.5 mmol/L (3.5-5.1) Chloride Level 105 mmol/L (98-107) Carbon Dioxide Level 30 mmol/L (21-32) Anion Gap 3 (6-14) Blood Urea Nitrogen 18 mg/dL (8-26) Creatinine 0.8 mg/dL (0.7-1.3) Estimated GFR (Cockcroft-Gault) 107.6 BUN/Creatinine Ratio 23 (6-20) Glucose Level 131 mg/dL (70-99) Calcium Level 6.8 mg/dL (8.5-10.1) Total Bilirubin 0.5 mg/dL (0.2-1.0) Aspartate Amino Transf (AST/SGOT) 97 U/L (15-37) Alanine Aminotransferase (ALT/SGPT) 126 U/L (16-63) Alkaline Phosphatase 75 U/L (46-116) Total Protein 5.6 g/dL (6.4-8.2) Albumin 1.8 g/dL (3.4-5.0) Albumin/Globulin Ratio 0.5 (1.0-1.7) Test 08/10/21 08:00 O2 Saturation 89 % (92-99) Arterial Blood pH 7.40 (7.35-7.45) Arterial Blood pCO2 at Patient Temp 41 mmHg (35-46) Arterial Blood pO2 at Patient Temp 57 mmHg (75-108) Arterial Blood HCO3 25 mmol/L (21-28) Arterial Blood Base Excess 0 mmol/L (-3-3) FiO2 100/vent Physical Exam HEENT: Other (intubated ) Chest: Symmetric LUNGS: Other (MV) Heart: RRR Abdomen: Other (non-distended) Extremities: No Edema Neurology: other (sedated ) Assessment Assessment 1. Acute respiratory failure secondary to COVID PNA 2. NSTEMI; trop 2. Most probably type II, demand ischemia secondary to above. on heparin gtt 3. PAMELA 4. Hyponatremia 5. Elevated LFTs 6. Hypotensive; requiring pressor support Recommendations ASA therapy Discontinue heparin this afternoon Ongoing lung optimization, treatment of PNA Outpatient echo and ischemic evaluation once recovered from COVID Supportive care Justicifation of Admission Dx: Justifications for Admission: Justification of Admission Dx: Yes Comments: Acute respiratory failure, COVID PNA PARMINDER COKER MD 08/10/212116: CARDIO Progress Notes Assessment Assessment Agree with FORMULA MAKER's assessment and plan. Acute respiratory failure secondary to Covid pneumonia. Continue vent management per pulmonary team. Troponin elevation most probably demand ischemia. Stop heparin later today (48 hours total infusion) Plan 2D echo and ischemic evaluation once he recovers from Covid pneumonia. THADDEUS BAUTISTA APRN Aug 10, 2021 11:19 PARMINDER COKER MD Aug 10, 2021 21:17
[2021-08-10] MEDS: VECURONIUM BOLUS 10 MG VIAL. IV PRN ×2 (17:02→21:15)
[2021-08-10] MEDS: REMDESIVIR 100mg in NORMAL SALINE 250ML X 4 DAYS IV SCH (17:57)
[2021-08-10] MEDS: NOREPINEPHRINE VIAL 8 MG in IV DEXTROSE 5% 250 ML IV PRN (17:58)
[2021-08-11] VITALS (24 sets, daily range): BP systolic 87–120; BP diastolic 47–78
[2021-08-11] MEDS: PIPERACILLIN/TAZOBACTAM 3.375 GM in IV NORMAL SALINE 50ML 50 ML IV SCH ×5 (00:10→23:29)
[2021-08-11] MEDS: PROPOFOL 100 ML IV PRN ×6 (00:13→23:29)
[2021-08-11] MEDS: fentaNYL HIGH DOSE PCA 55 ML IV PRN (05:30)
[2021-08-11 05:43] LABS: HEMOGLOBIN 12.4 g/dL (13.0-17.5); RED BLOOD COUNT 3.99 x10^6/uL (4.30-5.70); RED CELL DISTRIBUTION WIDTH 12.8 % (11.5-14.5); WHITE BLOOD COUNT 11.9 x10^3/uL (4.0-11.0)
[2021-08-11] MEDS: SENNOSIDES/DOCUSATE 8.6/50MG TABLET. PO SCH ×2 (07:38→19:39)
[2021-08-11] MEDS: ASPIRIN CHEWABLE 81 MG TABLET. PO SCH (07:38)
[2021-08-11] MEDS: CHLORHEXIDINE 0.12% 15 ML MOUTHWASH. MM SCH ×2 (07:38→19:39)
[2021-08-11] MEDS: MIDAZOLAM 100mg/100ml NS BAG 100 ML IV PRN ×2 (07:38→19:23)
[2021-08-11] MEDS: FAMOTIDINE 20 MG/2 ML VIAL IVP SCH ×2 (07:38→19:39)
[2021-08-11] MEDS: MULTIVITAMINS,THERAPEUTIC 5 ML ORAL LIQUID. PEG SCH (07:38)
[2021-08-11] MEDS: ELECTROLYTE (ICU) PROTOCOL. MC SCH (07:39)
[2021-08-11] MEDS: DEXAMETHASONE SOD PHOS 4 MG/ML VIAL IVP SCH (07:39)
[2021-08-11 07:42] LABS: BASE EXCESS ABG 4 mmol/L (-3-3); HCO3 ABG 30 mmol/L (21-28); PCO2 ABG 49 mmHg (35-46); PO2 ABG 89 mmHg (75-108); SAT O2 ABG 96 % (92-99)
[2021-08-11 07:48] LABS: FIO2 ABG 100
--- NOTE | 2021-08-11 08:40 | PDOC ---
[employer] PROGRESS NOTE Date of Service DOS: DATE: 08/11/21 TIME: 08:35 Chief Complaint Chief Complaint Acute hypoxic respiratory failure secondary to COVID-19 pneumonia NSTEMI Incarceration -Patient presented to emergency room today due to worsening Covid symptoms: [facility] had been treated with prednisone and azithromycin -Required endotracheal intubation in emergency room, sedated when evaluated -Covid [address] -Consult to pulmonary -ICU admission -Patient with very elevated troponins as well -Awaiting EKG, starting heparin drip trend troponins -Wean oxygen as tolerated -Wean sedation as tolerated -Severe malnutrition History of Present Illness History of Present Illness Patient is a 41 year old male who presents from [facility] with respiratory distress. He tested positive for Covid. He has had symptoms for 1 week. He has had cough and shortness of breath. Per report he was diagnosed with a COVID-19 pneumonia. He was given azithromycin and prednisone for treatment. He continued to worsen and today showed signs of respiratory distress. When EMS arrived they applied 15 L nonrebreather and he was only able to maintain sats of 69%. Patient denies having chest pain. Speaking in one-word responses. But is alert and oriented. Patient denies any medical problems, chronic medications, or allergies 08/09/2021: Patient seen and evaluated. Afebrile, on vent with FiO2 100%, PEEP 10. Tested COVID-19 positive prior to admission yesterday. We will continue treatment with COVID-19 pneumonia with remdesivir (day 2/5), Decadron 6 mg daily to complete 10-day course, and empiric antibiotics. Will maintain patient on heparin infusion due to elevated troponins. Will follow cardiology recommendations. Appreciate pulmonology and cardiology input on the management of this patient. Critical care time 30 minutes spent reviewing charts, reviewing labs, reviewing imaging, and discussion with RN. 08/10/2021: Afebrile. On ventilator with FiO2 100%, PEEP 10. Highest troponin levels 2.038. Per cardiology, probably demand ischemia. Continue heparin infusion for 48 hours, and TTE once COVID-19 recovered. Continue remdesivir for full course. Continue Decadron and empiric antibiotics. Critical care time 30 minutes spent reviewing charts, reviewing labs, reviewing imaging, and discussion with RN. 08/11/2021: Afebrile. On vent with FiO2 100%, PEEP 10. Heparin been discontinued, per cardiology. Continue daily aspirin. TTE once COVID-19 recovered. Continue remdesivir day 4/. Continue Decadron for full 10-day course and empiric antibiotics. Critical care time 30 minutes spent reviewing charts, reviewing labs, reviewing imaging, and discussion with RN. Vitals/I&O Vitals/I&O: Vital Signs Date Time Temp Pulse Resp B/P (MAP) Pulse Ox O2 Delivery O2 Flow Rate FiO2 08/11/21 08:10 Mechanical Ventilator 08/11/21 08:00 71 22 112/53 (72) 91 08/11/21 07:00 99.4 99.4 08/11/21 06:00 25.0 I & O 08/10/21 08/10/21 08/11/21 15:00 23:00 07:00 Intake Total 200 ml 584 ml 1784 ml Output Total 425 ml 595 ml 600 ml Balance -225 ml -11 ml 1184 ml Physical Exam General: Other (sedated) Heart: Regular rate Lungs: Other (Intubated on ventilator) Abdomen: Other (non-distended ) Extremities: No clubbing, No cyanosis Skin: No significant lesion Labs Labs: Laboratory Tests Test 08/11/21 05:20 08/11/21 07:35 White Blood Count 11.9 x10^3/uL (4.0-11.0) Red Blood Count 3.99 x10^6/uL (4.30-5.70) Hemoglobin 12.4 g/dL (13.0-17.5) Hematocrit 36.0 % (39.0-53.0) Mean Corpuscular Volume 90 fL (79-100) Mean Corpuscular Hemoglobin 31 pg (25-35) Mean Corpuscular Hemoglobin Concent 34 g/dL (31-37) Red Cell Distribution Width 12.8 % (11.5-14.5) Platelet Count 267 x10^3/uL (140-400) O2 Saturation 96 % (92-99) Arterial Blood pH 7.40 (7.35-7.45) Arterial Blood pCO2 at Patient Temp 49 mmHg (35-46) Arterial Blood pO2 at Patient Temp 89 mmHg (75-108) Arterial Blood HCO3 30 mmol/L (21-28) Arterial Blood Base Excess 4 mmol/L (-3-3) FiO2 100 Assessment and Plan Assessmemt and Plan Problems Medical Problems: (1) Acute respiratory distress syndrome (ARDS) due to COVID-19 virus Status: Acute (2) Hyponatremia Status: Acute (3) NSTEMI (non-ST elevated myocardial infarction) Status: Acute (4) Pneumonia due to COVID-19 virus Status: Acute (5) Respiratory failure Status: Acute Comment Review of Relevant I have reviewed the following items vincent (where applicable) has been applied. Justifications for Admission Other Justification SANDRA GALLOWAY MD Aug 11, 2021 08:40
--- NOTE | 2021-08-11 10:06 | PDOC ---
PULMONARY PROGRESS NOTES DATE: 08/11/21 TIME: 10:04 Subjective Remains intubated and sedated On assist control mode, 100% FiO2. Vitals Vital Signs Date Time Temp Pulse Resp B/P (MAP) Pulse Ox O2 Delivery O2 Flow Rate FiO2 08/11/21 09:08 68 22 101/56 (71) 92 Ventilator 08/11/21 07:00 99.4 99.4 08/11/21 06:00 25.0 Comments Visual exam done due to COVID-19 pneumonia. No paradoxical breathing. Is in sync with the ventilator. No skin rash no leg edema Labs Laboratory Tests Test 08/09/21 12:56 08/09/21 18:18 08/10/21 01:15 08/10/21 07:30 Heparin Anti-Xa Act, Unfractionated 0.22 IU/mL (0.30-0.70) 0.29 IU/mL (0.30-0.70) 0.36 IU/mL (0.30-0.70) 0.28 IU/mL (0.30-0.70) Sodium Level 138 mmol/L (136-145) Potassium Level 4.5 mmol/L (3.5-5.1) Chloride Level 105 mmol/L (98-107) Carbon Dioxide Level 30 mmol/L (21-32) Anion Gap 3 (6-14) Blood Urea Nitrogen 18 mg/dL (8-26) Creatinine 0.8 mg/dL (0.7-1.3) Estimated GFR (Cockcroft-Gault) 107.6 BUN/Creatinine Ratio 23 (6-20) Glucose Level 131 mg/dL (70-99) Calcium Level 6.8 mg/dL (8.5-10.1) Total Bilirubin 0.5 mg/dL (0.2-1.0) Aspartate Amino Transf (AST/SGOT) 97 U/L (15-37) Alanine Aminotransferase (ALT/SGPT) 126 U/L (16-63) Alkaline Phosphatase 75 U/L (46-116) Total Protein 5.6 g/dL (6.4-8.2) Albumin 1.8 g/dL (3.4-5.0) Albumin/Globulin Ratio 0.5 (1.0-1.7) Test 08/10/21 08:00 08/11/21 05:20 08/11/21 07:35 O2 Saturation 89 % (92-99) 96 % (92-99) Arterial Blood pH 7.40 (7.35-7.45) 7.40 (7.35-7.45) Arterial Blood pCO2 at Patient Temp 41 mmHg (35-46) 49 mmHg (35-46) Arterial Blood pO2 at Patient Temp 57 mmHg (75-108) 89 mmHg (75-108) Arterial Blood HCO3 25 mmol/L (21-28) 30 mmol/L (21-28) Arterial Blood Base Excess 0 mmol/L (-3-3) 4 mmol/L (-3-3) FiO2 100/vent 100 White Blood Count 11.9 x10^3/uL (4.0-11.0) Red Blood Count 3.99 x10^6/uL (4.30-5.70) Hemoglobin 12.4 g/dL (13.0-17.5) Hematocrit 36.0 % (39.0-53.0) Mean Corpuscular Volume 90 fL (79-100) Mean Corpuscular Hemoglobin 31 pg (25-35) Mean Corpuscular Hemoglobin Concent 34 g/dL (31-37) Red Cell Distribution Width 12.8 % (11.5-14.5) Platelet Count 267 x10^3/uL (140-400) Laboratory Tests Test 08/11/21 05:20 08/11/21 07:35 White Blood Count 11.9 x10^3/uL (4.0-11.0) Red Blood Count 3.99 x10^6/uL (4.30-5.70) Hemoglobin 12.4 g/dL (13.0-17.5) Hematocrit 36.0 % (39.0-53.0) Mean Corpuscular Volume 90 fL (79-100) Mean Corpuscular Hemoglobin 31 pg (25-35) Mean Corpuscular Hemoglobin Concent 34 g/dL (31-37) Red Cell Distribution Width 12.8 % (11.5-14.5) Platelet Count 267 x10^3/uL (140-400) O2 Saturation 96 % (92-99) Arterial Blood pH 7.40 (7.35-7.45) Arterial Blood pCO2 at Patient Temp 49 mmHg (35-46) Arterial Blood pO2 at Patient Temp 89 mmHg (75-108) Arterial Blood HCO3 30 mmol/L (21-28) Arterial Blood Base Excess 4 mmol/L (-3-3) FiO2 100 Impression . 1. Acute hypoxic respiratory failure secondary to acute respiratory distress syndrome from COVID-19 viral pneumonia[address] chest with extensive and diffuse ground glass infiltrates throughout both lungs. No evidence of pulmonary embolism. No significant pleural effusion. 3. Increased CPK and troponin, possible rhabdomyolysis. 4. Increased liver function tests, likely secondary to COVID-19. We will monitor closely. Improving. 5. Moderate protein calorie malnutrition. Plan . 1. We will continue present assist control mode. Wean FiO2 to 90% and continue PEEP at 10. make necessary adjustment based on ABGs. 2. Follow chest x-rays per protocol. 3. Continue empiric antibiotic. 4. Finish the course of remdesivir. 5. Finish the course of dexamethasone. 6. DVT prophylaxis with subcutaneous heparin. 7. Patient is critical. We will follow along with you. Discussed with RN and RT. 8. LFTs improving 9. Start enteral nutrition. CLYDE KANG MD Aug 11, 2021 10:06
[2021-08-11] MEDS: VECURONIUM BOLUS 10 MG VIAL. IV PRN (11:31)
--- NOTE | 2021-08-11 12:18 | PDOC ---
THADDEUS BAUTISTA FELTING MACHINE OPERATOR HELPER 08/11/21 1218: CARDIO Progress Notes Date and Time Date of Service 08/11/21 Time of Evaluation 1215 Subjective Subjective: Other (intubated ) Vitals Vitals Vital Signs Date Time Temp Pulse Resp B/P (MAP) Pulse Ox O2 Delivery O2 Flow Rate FiO2 08/11/21 11:51 Mechanical Ventilator 08/11/21 11:46 93 08/11/21 11:00 70 22 98/52 (67) 08/11/21 07:00 99.4 99.4 08/11/21 06:00 25.0 Weight Weight [ ] Input and Output Intake and Output Intake and Output 08/11/21 07:00 Intake Total 2568 ml Output Total 1620 ml Balance 948 ml Intake IV Total 1057 ml Tube Feeding 1311 ml Other 200 ml Output Urine Total 1620 ml Gastric Drainage Total 0 ml Laboratory Labs Laboratory Tests Test 08/11/21 05:20 08/11/21 07:35 White Blood Count 11.9 x10^3/uL (4.0-11.0) Red Blood Count 3.99 x10^6/uL (4.30-5.70) Hemoglobin 12.4 g/dL (13.0-17.5) Hematocrit 36.0 % (39.0-53.0) Mean Corpuscular Volume 90 fL (79-100) Mean Corpuscular Hemoglobin 31 pg (25-35) Mean Corpuscular Hemoglobin Concent 34 g/dL (31-37) Red Cell Distribution Width 12.8 % (11.5-14.5) Platelet Count 267 x10^3/uL (140-400) O2 Saturation 96 % (92-99) Arterial Blood pH 7.40 (7.35-7.45) Arterial Blood pCO2 at Patient Temp 49 mmHg (35-46) Arterial Blood pO2 at Patient Temp 89 mmHg (75-108) Arterial Blood HCO3 30 mmol/L (21-28) Arterial Blood Base Excess 4 mmol/L (-3-3) FiO2 100 Physical Exam HEENT: Other (intubated ) Chest: Symmetric LUNGS: Other (MV) Heart: RRR Abdomen: Other (non-distended) Extremities: No Edema Neurology: other (sedated ) Assessment Assessment 1. Acute respiratory failure secondary to COVID PNA 2. NSTEMI; trop 2. Most probably type II, demand ischemia secondary to above. 3. PAMELA 4. Hyponatremia 5. Elevated LFTs 6. Hypotensive; low dose pressor support Recommendations ASA therapy Ongoing lung optimization, treatment of PNA Outpatient echo and ischemic evaluation once recovered from COVID Supportive care Justicifation of Admission Dx: Justifications for Admission: Justification of Admission Dx: Yes PARMINDER COKER MD 08/12/21 1248: CARDIO Progress Notes Assessment Assessment Patient evaluated 08/11/2021. Agree with MANUFACTURING ELECTRICIAN's assessment and plan. Acute respiratory failure secondary to Covid pneumonia. Continues to need pressors. Continue vent management per pulmonary team. Troponin elevation most probably demand ischemia. Stop heparin later today (48 hours total infusion) Plan 2D echo and ischemic evaluation once he recovers from Covid pneumonia. THADDEUS BAUTISTA APRN Aug 11, 2021 12:18 PARMINDER COKER MD Aug 12, 2021 12:48
[2021-08-11] MEDS: REMDESIVIR 100mg in NORMAL SALINE 250ML X 4 DAYS IV SCH (19:24)
[2021-08-12] VITALS (20 sets, daily range): BP systolic 87–112; BP diastolic 47–63
[2021-08-12] MEDS: VECURONIUM BOLUS 10 MG VIAL. IV PRN ×2 (05:00→10:00)
[2021-08-12] MEDS: PIPERACILLIN/TAZOBACTAM 3.375 GM in IV NORMAL SALINE 50ML 50 ML IV SCH ×4 (06:00→23:58)
[2021-08-12] MEDS: PROPOFOL 100 ML IV PRN ×4 (07:36→22:28)
[2021-08-12] MEDS: fentaNYL HIGH DOSE PCA 55 ML IV PRN (07:37)
[2021-08-12] MEDS: ASPIRIN CHEWABLE 81 MG TABLET. PO SCH (08:13)
[2021-08-12] MEDS: SENNOSIDES/DOCUSATE 8.6/50MG TABLET. PO SCH ×2 (08:13→21:14)
[2021-08-12] MEDS: FAMOTIDINE 20 MG/2 ML VIAL IVP SCH ×2 (08:13→21:13)
[2021-08-12] MEDS: MULTIVITAMINS,THERAPEUTIC 5 ML ORAL LIQUID. PEG SCH (08:13)
[2021-08-12 08:14] LABS: BASE EXCESS ABG 3 mmol/L (-3-3); HCO3 ABG 28 mmol/L (21-28); PCO2 ABG 44 mmHg (35-46); PO2 ABG 58 mmHg (75-108); SAT O2 ABG 89 % (92-99)
[2021-08-12] MEDS: DEXAMETHASONE SOD PHOS 4 MG/ML VIAL IVP SCH (08:14)
[2021-08-12] MEDS: ELECTROLYTE (ICU) PROTOCOL. MC SCH (08:14)
[2021-08-12 08:16] LABS: FIO2 ABG 100
[2021-08-12] MEDS: CHLORHEXIDINE 0.12% 15 ML MOUTHWASH. MM SCH (09:00)
--- NOTE | 2021-08-12 10:12 | NUR ---
0930 Oxygen saturations down to 73, Dr eWlsh on unit. PEEP increased to 10. Vec dose given. 1015 Saturations at 87%. Noted that Pt saturations drop while bed is in rotation. Rotation stopped and orders received to not turn patient.
--- NOTE | 2021-08-12 10:17 | PDOC ---
PULMONARY PROGRESS NOTES DATE: 08/12/21 TIME: 10:15 Subjective Remains intubated and sedated On assist control mode, 100% FiO2. 9 of PEEP. Oxygenation marginal Vitals Vital Signs Date Time Temp Pulse Resp B/P (MAP) Pulse Ox O2 Delivery O2 Flow Rate FiO2 08/12/21 10:04 81 104/59 (74) 86 08/12/21 09:00 22 Ventilator 08/12/21 08:49 99.1 99.1 Comments Visual exam done due to COVID-19 pneumonia. No paradoxical breathing. Is in sync with the ventilator. No skin rash no leg edema Labs Laboratory Tests Test 08/11/21 05:20 08/11/21 07:35 08/12/21 08:05 White Blood Count 11.9 x10^3/uL (4.0-11.0) Red Blood Count 3.99 x10^6/uL (4.30-5.70) Hemoglobin 12.4 g/dL (13.0-17.5) Hematocrit 36.0 % (39.0-53.0) Mean Corpuscular Volume 90 fL (79-100) Mean Corpuscular Hemoglobin 31 pg (25-35) Mean Corpuscular Hemoglobin Concent 34 g/dL (31-37) Red Cell Distribution Width 12.8 % (11.5-14.5) Platelet Count 267 x10^3/uL (140-400) O2 Saturation 96 % (92-99) 89 % (92-99) Arterial Blood pH 7.40 (7.35-7.45) 7.43 (7.35-7.45) Arterial Blood pCO2 at Patient Temp 49 mmHg (35-46) 44 mmHg (35-46) Arterial Blood pO2 at Patient Temp 89 mmHg (75-108) 58 mmHg (75-108) Arterial Blood HCO3 30 mmol/L (21-28) 28 mmol/L (21-28) Arterial Blood Base Excess 4 mmol/L (-3-3) 3 mmol/L (-3-3) FiO2 100 100 Laboratory Tests Test 08/12/21 08:05 O2 Saturation 89 % (92-99) Arterial Blood pH 7.43 (7.35-7.45) Arterial Blood pCO2 at Patient Temp 44 mmHg (35-46) Arterial Blood pO2 at Patient Temp 58 mmHg (75-108) Arterial Blood HCO3 28 mmol/L (21-28) Arterial Blood Base Excess 3 mmol/L (-3-3) FiO2 100 Impression . 1. Acute hypoxic respiratory failure secondary to acute respiratory distress syndrome from COVID-[address] 2[address] chest with extensive and diffuse ground glass infiltrates throughout both lungs. No evidence of pulmonary embolism. No significant pleural effusion. 3. Increased CPK and troponin, possible rhabdomyolysis. 4. Increased liver function tests, likely secondary to COVID-19. We will monitor closely. Improving. 5. Severe protein calorie malnutrition. Plan . Updated 08/12/2021 1. We will continue present assist control mode. Continue present oxygen at 100% FiO2 and increase the PEEP to 10 Follow ABGs and make necessary adjustment based on ABGs. 2. Follow chest x-rays per protocol. 3. Continue empiric antibiotic. 4. Finish the course of remdesivir. 5. Finish the course of dexamethasone. 6. DVT prophylaxis with subcutaneous heparin. 7. Patient is critical. We will follow along with you. Discussed with RN and RT. 8. LFTs improving 9. enteral nutrition. Updated 08/11/2021 1. We will continue present assist control mode. Wean FiO2 to 90% and continue PEEP at 10. make necessary adjustment based on ABGs. 2. Follow chest x-rays per protocol. 3. Continue empiric antibiotic. 4. Finish the course of remdesivir. 5. Finish the course of dexamethasone. 6. DVT prophylaxis with subcutaneous heparin. 7. Patient is critical. We will follow along with you. Discussed with RN and RT. 8. LFTs improving 9. Start enteral nutrition. CLYDE KANG MD Aug 12, 2021 10:17
--- NOTE | 2021-08-12 10:33 | PDOC ---
THADDEUS BAUTISTA APRN 08/12/21 1033: CARDIO Progress Notes Date and Time Date of Service 08/12/21 Time of Evaluation 1030 Subjective Subjective: Other (intubated ) Vitals Vitals Vital Signs Date Time Temp Pulse Resp B/P (MAP) Pulse Ox O2 Delivery O2 Flow Rate FiO2 08/12/21 10:04 81 104/59 (74) 86 08/12/21 09:00 22 Ventilator 08/12/21 08:49 99.1 99.1 Weight Weight [ ] Input and Output Intake and Output Intake and Output 08/12/21 07:00 Intake Total 2838 ml Output Total 2105 ml Balance 733 ml Intake IV Total 1059 ml Tube Feeding 1378 ml Other 401 ml Output Urine Total 2105 ml Laboratory Labs Laboratory Tests Test 08/12/21 08:05 O2 Saturation 89 % (92-99) Arterial Blood pH 7.43 (7.35-7.45) Arterial Blood pCO2 at Patient Temp 44 mmHg (35-46) Arterial Blood pO2 at Patient Temp 58 mmHg (75-108) Arterial Blood HCO3 28 mmol/L (21-28) Arterial Blood Base Excess 3 mmol/L (-3-3) FiO2 100 Physical Exam HEENT: Other (intubated ) Chest: Symmetric LUNGS: Other (MV) Heart: RRR (SR) Abdomen: Other (non-distended) Extremities: No Edema Neurology: other (sedated ) Assessment Assessment 1. Acute respiratory failure secondary to COVID PNA 2. NSTEMI; trop 2. Most probably type II, demand ischemia secondary to above. 3. PAMELA, hyponatremia; resolved 4. Elevated LFTs 6. Hypotensive; off pressor support. remains low end Recommendations ASA therapy Ongoing lung optimization, treatment of PNA Outpatient echo and ischemic evaluation once recovered from COVID Supportive care Justicifation of Admission Dx: Justifications for Admission: Justification of Admission Dx: Yes PARMINDER COKER MD 08/12/21 1704: CARDIO Progress Notes Assessment Assessment Agree with PROFESSOR OF SURGERY's assessment and plan. Acute respiratory failure secondary to Covid pneumonia. Continue vent management per pulmonary team. Troponin elevation most probably demand ischemia. Plan 2D echo and ischemic evaluation once he recovers from Covid pneumonia. THADDEUS BAUTISTA APRN Aug 12, 2021 10:33 PARMINDER COKER MD Aug 12, 2021 17:04
[2021-08-12] MEDS: NORCURON - VECURONIUM 50 MG in IV NORMAL SALINE 50ML 50 ML IV PRN ×2 (11:38→18:26)
[2021-08-12 11:58] LABS: BLOOD UREA NITROGEN 19 mg/dL (8-26); CALCIUM 7.2 mg/dL (8.5-10.1); CARBON DIOXIDE 37 mmol/L (21-32); CHLORIDE 106 mmol/L (98-107); CREATININE 0.8 mg/dL (0.7-1.3); GFR 107.6; GLUCOSE 120 mg/dL (70-99); POTASSIUM 5.1 mmol/L (3.5-5.1); SODIUM 139 mmol/L (136-145)
--- NOTE | 2021-08-12 12:18 | PDOC ---
[employer] PROGRESS NOTE Date of Service DOS: DATE: 08/12/21 TIME: 12:12 Chief Complaint Chief Complaint Acute hypoxic respiratory failure secondary to COVID-19 pneumonia NSTEMI Incarceration -Patient presented to emergency room today due to worsening Covid symptoms: Was diagnosed at his [facility] had been treated with prednisone and azithromycin -Required endotracheal intubation in emergency room, sedated when evaluated -Covid [address] -Consult to pulmonary -ICU admission -Patient with very elevated troponins as well -Awaiting EKG, starting heparin drip trend troponins -Wean oxygen as tolerated -Wean sedation as tolerated -Severe malnutrition History of Present Illness History of Present Illness Patient is a 41 year old male who presents from [facility] with respiratory distress. He tested positive for Covid. He has had symptoms for 1 week. He has had cough and shortness of breath. Per report he was diagnosed with a COVID-19 pneumonia. He was given azithromycin and prednisone for treatment. He continued to worsen and today showed signs of respiratory distress. When EMS arrived they applied 15 L nonrebreather and he was only able to maintain sats of 69%. Patient denies having chest pain. Speaking in one-word responses. But is alert and oriented. Patient denies any medical problems, chronic medications, or allergies 08/09/2021: Patient seen and evaluated. Afebrile, on vent with FiO2 100%, PEEP 10. Tested COVID-19 positive prior to admission yesterday. We will continue treatment with COVID-19 pneumonia with remdesivir (day 2/5), Decadron 6 mg daily to complete 10-day course, and empiric antibiotics. Will maintain patient on heparin infusion due to elevated troponins. Will follow cardiology recommendations. Appreciate pulmonology and cardiology input on the management of this patient. Critical care time 30 minutes spent reviewing charts, reviewing labs, reviewing imaging, and discussion with RN. 08/10/2021: Afebrile. On ventilator with FiO2 100%, PEEP 10. Highest troponin levels 2.038. Per cardiology, probably demand ischemia. Continue heparin infusion for 48 hours, and TTE once COVID-19 recovered. Continue remdesivir for full course. Continue Decadron and empiric antibiotics. Critical care time 30 minutes spent reviewing charts, reviewing labs, reviewing imaging, and discussion with RN. 08/11/2021: Afebrile. On vent with FiO2 100%, PEEP 10. Heparin been discontinued, per cardiology. Continue daily aspirin. TTE once COVID-19 recovered. Continue remdesivir day /. Continue Decadron for full 10-day course and empiric antibiotics. Critical care time 30 minutes spent reviewing charts, reviewing labs, reviewing imaging, and discussion with RN. 08/12/2021: Afebrile; on vent with FiO2 100%, PEEP 10. Remdesivir day /. LFTs improving, will check again tomorrow. Continue Decadron for full 10-day course and empiric antibiotics. Appreciate cardiology recommendations; continue daily aspirin and TTE once COVID-19 recovered. Critical care time 30 minutes spent reviewing charts, reviewing labs, reviewing imaging, and discussion with RN. Vitals/I&O Vitals/I&O: Vital Signs Date Time Temp Pulse Resp B/P (MAP) Pulse Ox O2 Delivery O2 Flow Rate FiO2 08/12/21 11:19 74 22 96/48 (64) 88 08/12/21 11:19 Ventilator 08/12/21 08:49 99.1 99.1 I & O 08/11/21 08/11/21 08/12/21 15:00 23:00 07:00 Intake Total 300 ml 949 ml 1589 ml Output Total 1000 ml 500 ml 605 ml Balance -700 ml 449 ml 984 ml Physical Exam General: Other (sedated) Heart: Regular rate Lungs: Other (Intubated) Abdomen: Other (non-distended ) Extremities: No clubbing, No cyanosis Skin: No significant lesion Labs Labs: Laboratory Tests Test 08/12/21 08:05 08/12/21 11:30 O2 Saturation 89 % (92-99) Arterial Blood pH 7.43 (7.35-7.45) Arterial Blood pCO2 at Patient Temp 44 mmHg (35-46) Arterial Blood pO2 at Patient Temp 58 mmHg (75-108) Arterial Blood HCO3 28 mmol/L (21-28) Arterial Blood Base Excess 3 mmol/L (-3-3) FiO2 100 Sodium Level 139 mmol/L (136-145) Potassium Level 5.1 mmol/L (3.5-5.1) Chloride Level 106 mmol/L (98-107) Carbon Dioxide Level 37 mmol/L (21-32) Anion Gap (6-14) Blood Urea Nitrogen 19 mg/dL (8-26) Creatinine 0.8 mg/dL (0.7-1.3) Estimated GFR (Cockcroft-Gault) 107.6 Glucose Level 120 mg/dL (70-99) Calcium Level 7.2 mg/dL (8.5-10.1) Assessment and Plan Assessmemt and Plan Problems Medical Problems: (1) Acute respiratory distress syndrome (ARDS) due to COVID-19 virus Status: Acute (2) Hyponatremia Status: Acute (3) NSTEMI (non-ST elevated myocardial infarction) Status: Acute (4) Pneumonia due to COVID-19 virus Status: Acute (5) Respiratory failure Status: Acute Comment Review of Relevant I have reviewed the following items vincent (where applicable) has been applied. Medications: Current Medications Medications (Trade) Dose Ordered Sig/Magalis Route PRN Reason Start Time Stop Time Status Last Admin Dose Admin Vecuronium [place] 50 mg/ Sodium Chloride 50 ml @ 5.63 mls/hr CONT PRN IV SEE I/O RECORD 08/12/21 12:00 08/12/21 11:38 Justifications for Admission Other Justification SANDRA GALLOWAY MD Aug 12, 2021 12:18
[2021-08-12] MEDS: MIDAZOLAM 100mg/100ml NS BAG 100 ML IV PRN (14:55)
[2021-08-12] MEDS: HEPARIN for SUB-Q USE 5,000 UNIT/ML VIAL. SQ SCH ×2 (14:56→22:27)
[2021-08-12] MEDS: REMDESIVIR 100mg in NORMAL SALINE 250ML X 4 DAYS IV SCH (14:56)
[2021-08-13] VITALS (24 sets, daily range): BP systolic 90–147; BP diastolic 51–87
[2021-08-13] MEDS: MIDAZOLAM 100mg/100ml NS BAG 100 ML IV PRN ×2 (02:29→11:44)
[2021-08-13] MEDS: PROPOFOL 100 ML IV PRN ×5 (02:50→23:22)
[2021-08-13] MEDS: NORCURON - VECURONIUM 50 MG in IV NORMAL SALINE 50ML 50 ML IV PRN ×3 (04:06→20:34)
[2021-08-13] MEDS: PIPERACILLIN/TAZOBACTAM 3.375 GM in IV NORMAL SALINE 50ML 50 ML IV SCH ×4 (06:20→23:31)
[2021-08-13] MEDS: HEPARIN for SUB-Q USE 5,000 UNIT/ML VIAL. SQ SCH ×3 (06:22→22:32)
[2021-08-13 06:41] LABS: BASO % 0 % (0-3); EOS % 0 % (0-3); HEMOGLOBIN 12.7 g/dL (13.0-17.5); LYMPH # 0.5 x10^3/uL (1.0-4.8); LYMPH % 4 % (24-48); MEAN CORPUSCULAR HEMOGLOBIN 30 pg (25-35); MEAN CORPUSCULAR HGB CONC 33 g/dL (31-37); MEAN CORPUSCULAR VOLUME 93 fL (79-100); MONO # 0.5 x10^3/uL (0.0-1.1); MONO % 5 % (0-9); NEUT % 91 % (31-73); PLATELET COUNT 151 x10^3/uL (140-400)
[2021-08-13 06:57] LABS: ALBUMIN 1.8 g/dL (3.4-5.0); DIRECT BILIRUBIN 0.6 mg/dL (0.0-0.2); TOTAL BILIRUBIN 0.8 mg/dL (0.2-1.0); TOTAL PROTEIN 6.5 g/dL (6.4-8.2)
[2021-08-13] MEDS: fentaNYL HIGH DOSE PCA 55 ML IV PRN ×2 (08:09→20:33)
[2021-08-13] MEDS: MULTIVITAMINS,THERAPEUTIC 5 ML ORAL LIQUID. PEG SCH (08:18)
[2021-08-13] MEDS: SENNOSIDES/DOCUSATE 8.6/50MG TABLET. PO SCH ×2 (08:18→21:41)
[2021-08-13] MEDS: FAMOTIDINE 20 MG/2 ML VIAL IVP SCH ×2 (08:19→21:41)
[2021-08-13] MEDS: ASPIRIN CHEWABLE 81 MG TABLET. PO SCH (08:19)
[2021-08-13] MEDS: ELECTROLYTE (ICU) PROTOCOL. MC SCH (08:19)
[2021-08-13] MEDS: DEXAMETHASONE SOD PHOS 4 MG/ML VIAL IVP SCH (08:19)
--- NOTE | 2021-08-13 08:37 | PDOC ---
[employer] PROGRESS NOTE Date of Service DOS: DATE: 08/13/21 TIME: 08:33 Chief Complaint Chief Complaint Acute hypoxic respiratory failure secondary to COVID-19 pneumonia NSTEMI Incarceration -Patient presented to emergency room today due to worsening Covid symptoms: Was diagnosed at his [facility] had been treated with prednisone and azithromycin -Required endotracheal intubation in emergency room, sedated when evaluated -Covid [address] -Consult to pulmonary -ICU admission -Patient with very elevated troponins as well -Awaiting EKG, starting heparin drip trend troponins -Wean oxygen as tolerated -Wean sedation as tolerated -Severe malnutrition History of Present Illness History of Present Illness Patient is a 41 year old male who presents from [facility] with respiratory distress. He tested positive for Covid. He has had symptoms for 1 week. He has had cough and shortness of breath. Per report he was diagnosed with a COVID-19 pneumonia. He was given azithromycin and prednisone for treatment. He continued to worsen and today showed signs of respiratory distress. When EMS arrived they applied 15 L nonrebreather and he was only able to maintain sats of 69%. Patient denies having chest pain. Speaking in one-word responses. But is alert and oriented. Patient denies any medical problems, chronic medications, or allergies 08/09/2021: Patient seen and evaluated. Afebrile, on vent with FiO2 100%, PEEP 10. Tested COVID-19 positive prior to admission yesterday. We will continue treatment with COVID-19 pneumonia with remdesivir (day 2/5), Decadron 6 mg daily to complete 10-day course, and empiric antibiotics. Will maintain patient on heparin infusion due to elevated troponins. Will follow cardiology recommendations. Appreciate pulmonology and cardiology input on the management of this patient. Critical care time 30 minutes spent reviewing charts, reviewing labs, reviewing imaging, and discussion with RN. 08/10/2021: Afebrile. On ventilator with FiO2 100%, PEEP 10. Highest troponin levels 2.038. Per cardiology, probably demand ischemia. Continue heparin infusion for 48 hours, and TTE once COVID-19 recovered. Continue remdesivir for full course. Continue Decadron and empiric antibiotics. Critical care time 30 minutes spent reviewing charts, reviewing labs, reviewing imaging, and discussion with RN. 08/11/2021: Afebrile. On vent with FiO2 100%, PEEP 10. Heparin been discontinued, per cardiology. Continue daily aspirin. TTE once COVID-19 recovered. Continue remdesivir day /. Continue Decadron for full 10-day course and empiric antibiotics. Critical care time 30 minutes spent reviewing charts, reviewing labs, reviewing imaging, and discussion with RN. 08/12/2021: Afebrile; on vent with FiO2 100%, PEEP 10. Remdesivir day 03/31. LFTs improving, will check again tomorrow. Continue Decadron for full 10-day course and empiric antibiotics. Appreciate cardiology recommendations; continue daily aspirin and TTE once COVID-19 recovered. Critical care time 30 minutes spent reviewing charts, reviewing labs, reviewing imaging, and discussion with RN. 08/13/2021: Afebrile. On vent with FiO2 40%, PEEP 10. Completed remdesivir; continue to monitor for improving LFTs. Discussed with Dr. Welsh about treatment with Tocilizumab. Concerned however for severely elevated LFTs. Continue Decadron for full 10-day course; last day should be 08/19, then began slow taper. Empiric antibiotics. Appreciate cardiology recommendations; continue daily aspirin and TTE once COVID-19 recovered. Critical care time 30 minutes spent reviewing charts, reviewing labs, reviewing imaging, and discussion with RN. Vitals/I&O Vitals/I&O: Vital Signs Date Time Temp Pulse Resp B/P (MAP) Pulse Ox O2 Delivery O2 Flow Rate FiO2 08/13/21 08:09 22 91 Ventilator 08/13/21 08:00 98.8 100 145/82 (103) 98.8 I & O 08/12/21 08/12/21 08/13/21 15:00 23:00 07:00 Intake Total 250 ml 2352 ml 1505 ml Output Total 400 ml 800 ml 625 ml Balance -150 ml 1552 ml 880 ml Physical Exam General: Other (sedated) Heart: Regular rate Lungs: Other (Intubated) Abdomen: Other (non-distended ) Extremities: No clubbing, No cyanosis Skin: No significant lesion Labs Labs: Laboratory Tests Test 08/12/21 11:30 08/13/21 06:00 Sodium Level 139 mmol/L (136-145) Potassium Level 5.1 mmol/L (3.5-5.1) Chloride Level 106 mmol/L (98-107) Carbon Dioxide Level 37 mmol/L (21-32) Anion Gap (6-14) Blood Urea Nitrogen 19 mg/dL (8-26) Creatinine 0.8 mg/dL (0.7-1.3) Estimated GFR (Cockcroft-Gault) 107.6 Glucose Level 120 mg/dL (70-99) Calcium Level 7.2 mg/dL (8.5-10.1) White Blood Count 11.0 x10^3/uL (4.0-11.0) Red Blood Count 4.20 x10^6/uL (4.30-5.70) Hemoglobin 12.7 g/dL (13.0-17.5) Hematocrit 39.0 % (39.0-53.0) Mean Corpuscular Volume 93 fL (79-100) Mean Corpuscular Hemoglobin 30 pg (25-35) Mean Corpuscular Hemoglobin Concent 33 g/dL (31-37) Red Cell Distribution Width 13.0 % (11.5-14.5) Platelet Count 151 x10^3/uL (140-400) Neutrophils (%) (Auto) 91 % (31-73) Lymphocytes (%) (Auto) 4 % (24-48) Monocytes (%) (Auto) 5 % (0-9) Eosinophils (%) (Auto) 0 % (0-3) Basophils (%) (Auto) 0 % (0-3) Neutrophils # (Auto) 10.0 x10^3/uL (1.8-7.7) Lymphocytes # (Auto) 0.5 x10^3/uL (1.0-4.8) Monocytes # (Auto) 0.5 x10^3/uL (0.0-1.1) Eosinophils # (Auto) 0.0 x10^3/uL (0.0-0.7) Basophils # (Auto) 0.0 x10^3/uL (0.0-0.2) Total Bilirubin 0.8 mg/dL (0.2-1.0) Direct Bilirubin 0.6 mg/dL (0.0-0.2) Aspartate Amino Transf (AST/SGOT) 120 U/L (15-37) Alanine Aminotransferase (ALT/SGPT) 207 U/L (16-63) Alkaline Phosphatase 126 U/L (46-116) Total Protein 6.5 g/dL (6.4-8.2) Albumin 1.8 g/dL (3.4-5.0) Assessment and Plan Assessmemt and Plan Problems Medical Problems: (1) Acute respiratory distress syndrome (ARDS) due to COVID-19 virus Status: Acute (2) Hyponatremia Status: Acute (3) NSTEMI (non-ST elevated myocardial infarction) Status: Acute (4) Pneumonia due to COVID-19 virus Status: Acute (5) Respiratory failure Status: Acute Comment Review of Relevant I have reviewed the following items vincent (where applicable) has been applied. Medications: Current Medications Medications (Trade) Dose Ordered Sig/Magalis Route PRN Reason Start Time Stop Time Status Last Admin Dose Admin Heparin Sodium (Porcine) (Heparin Sodium) 5,000 unit Q8HRS SQ 08/12/21 14:00 08/13/21 06:22 Vecuronium [place] 50 mg/ Sodium Chloride 50 ml @ 5.63 mls/hr CONT PRN IV SEE I/O RECORD 08/12/21 12:00 08/13/21 04:06 Justifications for Admission Other Justification SANDRA GALLOWAY MD Aug 13, 2021 08:37
[2021-08-13 08:43] LABS: BASE EXCESS ABG 6 mmol/L (-3-3); HCO3 ABG 35 mmol/L (21-28); PO2 ABG 66 mmHg (75-108); SAT O2 ABG 92 % (92-99)
[2021-08-13 08:44] LABS: FIO2 ABG 100; PCO2 ABG 68 mmHg (35-46)
--- NOTE | 2021-08-13 09:08 | RAD ---
EXAM: Chest, single view. HISTORY: Respiratory failure. Covid 19. COMPARISON: 08/08/2021 FINDINGS: A frontal view of the chest is obtained. There has been slight interval increase in lower l obe predominant left lung interstitial and alveolar infiltrate with a small pleural effusion. There i s stable diffuse right lung interstitial and alveolar infiltrate. There is a stable cardiac silhouett e. There is an endotracheal tube within the mid trachea. There is a nasogastric tube within the stoma ch. There is a right internal jugular catheter with the tip overlying the expected location of the larios perior vena cava. IMPRESSION: 1. Slight interval increase in lower lobe predominant diffuse left lung interstitial and alveolar inf iltrate with a small pleural effusion. 2. Stable diffuse right lung infiltrate and support lines and tubes. Electronically signed by: Yuridia Palomares MD (08/13/2021 9:06 AM) [id number]
--- NOTE | 2021-08-13 09:35 | PDOC ---
PULMONARY PROGRESS NOTES DATE: 08/13/21 TIME: 09:33 Subjective Remains intubated and sedated On assist control mode, 100% FiO2. 9 of PEEP. Oxygenation marginal Vitals Vital Signs Date Time Temp Pulse Resp B/P (MAP) Pulse Ox O2 Delivery O2 Flow Rate FiO2 08/13/21 09:25 22 90 Ventilator 08/13/21 09:00 94 104/57 (73) 08/13/21 08:00 98.8 98.8 Comments Visual exam done due to COVID-19 pneumonia. No paradoxical breathing. Is in sync with the ventilator. No skin rash no leg edema Labs Laboratory Tests Test 08/12/21 08:05 08/12/21 11:30 08/13/21 06:00 08/13/21 08:00 O2 Saturation 89 % (92-99) 92 % (92-99) Arterial Blood pH 7.43 (7.35-7.45) 7.32 (7.35-7.45) Arterial Blood pCO2 at Patient Temp 44 mmHg (35-46) 68 mmHg (35-46) Arterial Blood pO2 at Patient Temp 58 mmHg (75-108) 66 mmHg (75-108) Arterial Blood HCO3 28 mmol/L (21-28) 35 mmol/L (21-28) Arterial Blood Base Excess 3 mmol/L (-3-3) 6 mmol/L (-3-3) FiO2 100 100 Sodium Level 139 mmol/L (136-145) Potassium Level 5.1 mmol/L (3.5-5.1) Chloride Level 106 mmol/L (98-107) Carbon Dioxide Level 37 mmol/L (21-32) Anion Gap (6-14) Blood Urea Nitrogen 19 mg/dL (8-26) Creatinine 0.8 mg/dL (0.7-1.3) Estimated GFR (Cockcroft-Gault) 107.6 Glucose Level 120 mg/dL (70-99) Calcium Level 7.2 mg/dL (8.5-10.1) White Blood Count 11.0 x10^3/uL (4.0-11.0) Red Blood Count 4.20 x10^6/uL (4.30-5.70) Hemoglobin 12.7 g/dL (13.0-17.5) Hematocrit 39.0 % (39.0-53.0) Mean Corpuscular Volume 93 fL (79-100) Mean Corpuscular Hemoglobin 30 pg (25-35) Mean Corpuscular Hemoglobin Concent 33 g/dL (31-37) Red Cell Distribution Width 13.0 % (11.5-14.5) Platelet Count 151 x10^3/uL (140-400) Neutrophils (%) (Auto) 91 % (31-73) Lymphocytes (%) (Auto) 4 % (24-48) Monocytes (%) (Auto) 5 % (0-9) Eosinophils (%) (Auto) 0 % (0-3) Basophils (%) (Auto) 0 % (0-3) Neutrophils # (Auto) 10.0 x10^3/uL (1.8-7.7) Lymphocytes # (Auto) 0.5 x10^3/uL (1.0-4.8) Monocytes # (Auto) 0.5 x10^3/uL (0.0-1.1) Eosinophils # (Auto) 0.0 x10^3/uL (0.0-0.7) Basophils # (Auto) 0.0 x10^3/uL (0.0-0.2) Total Bilirubin 0.8 mg/dL (0.2-1.0) Direct Bilirubin 0.6 mg/dL (0.0-0.2) Aspartate Amino Transf (AST/SGOT) 120 U/L (15-37) Alanine Aminotransferase (ALT/SGPT) 207 U/L (16-63) Alkaline Phosphatase 126 U/L (46-116) Total Protein 6.5 g/dL (6.4-8.2) Albumin 1.8 g/dL (3.4-5.0) Laboratory Tests Test 08/12/21 11:30 08/13/21 06:00 08/13/21 08:00 Sodium Level 139 mmol/L (136-145) Potassium Level 5.1 mmol/L (3.5-5.1) Chloride Level 106 mmol/L (98-107) Carbon Dioxide Level 37 mmol/L (21-32) Anion Gap (6-14) Blood Urea Nitrogen 19 mg/dL (8-26) Creatinine 0.8 mg/dL (0.7-1.3) Estimated GFR (Cockcroft-Gault) 107.6 Glucose Level 120 mg/dL (70-99) Calcium Level 7.2 mg/dL (8.5-10.1) White Blood Count 11.0 x10^3/uL (4.0-11.0) Red Blood Count 4.20 x10^6/uL (4.30-5.70) Hemoglobin 12.7 g/dL (13.0-17.5) Hematocrit 39.0 % (39.0-53.0) Mean Corpuscular Volume 93 fL (79-100) Mean Corpuscular Hemoglobin 30 pg (25-35) Mean Corpuscular Hemoglobin Concent 33 g/dL (31-37) Red Cell Distribution Width 13.0 % (11.5-14.5) Platelet Count 151 x10^3/uL (140-400) Neutrophils (%) (Auto) 91 % (31-73) Lymphocytes (%) (Auto) 4 % (24-48) Monocytes (%) (Auto) 5 % (0-9) Eosinophils (%) (Auto) 0 % (0-3) Basophils (%) (Auto) 0 % (0-3) Neutrophils # (Auto) 10.0 x10^3/uL (1.8-7.7) Lymphocytes # (Auto) 0.5 x10^3/uL (1.0-4.8) Monocytes # (Auto) 0.5 x10^3/uL (0.0-1.1) Eosinophils # (Auto) 0.0 x10^3/uL (0.0-0.7) Basophils # (Auto) 0.0 x10^3/uL (0.0-0.2) Total Bilirubin 0.8 mg/dL (0.2-1.0) Direct Bilirubin 0.6 mg/dL (0.0-0.2) Aspartate Amino Transf (AST/SGOT) 120 U/L (15-37) Alanine Aminotransferase (ALT/SGPT) 207 U/L (16-63) Alkaline Phosphatase 126 U/L (46-116) Total Protein 6.5 g/dL (6.4-8.2) Albumin 1.8 g/dL (3.4-5.0) O2 Saturation 92 % (92-99) Arterial Blood pH 7.32 (7.35-7.45) Arterial Blood pCO2 at Patient Temp 68 mmHg (35-46) Arterial Blood pO2 at Patient Temp 66 mmHg (75-108) Arterial Blood HCO3 35 mmol/L (21-28) Arterial Blood Base Excess 6 mmol/L (-3-3) FiO2 100 Comments Chest x-ray reviewed 08/13/2021. Diffuse bilateral interstitial infiltrates with mild worsening. No significant pleural effusions Impression . 1. Acute hypoxic respiratory failure secondary to acute respiratory distress syndrome from COVID-[address] chest with extensive and diffuse ground glass infiltrates throughout both lungs. No evidence of pulmonary embolism. No significant pleural effusion. 3. Increased CPK and troponin, possible rhabdomyolysis. 4. Increased liver function tests, likely secondary to COVID-19. LFTs has worsened today 5. Severe protein calorie malnutrition. Plan . Updated 08/13/2021 1. We will continue present assist control mode. Continue present oxygen at 100% FiO2 and increase the PEEP to 11 Follow ABGs and make necessary adjustment based on ABGs. Okay with permissive hypercapnia. 2. Follow chest x-rays as needed. 3. Continue empiric antibiotic. 4. Finish the course of remdesivir. 5. Finish the course of dexamethasone. 6. DVT prophylaxis with subcutaneous heparin. 7. Patient remains critically ill. 8. LFTs have worsened. Will monitor for now. Likely related to Covid. 9. enteral nutrition. Discussed with RN and RT. Chart reviewed imaging studies reviewed. Critical care time 30 minutes Updated 08/12/2021 1. We will continue present assist control mode. Continue present oxygen at 100% FiO2 and increase the PEEP to 10 Follow ABGs and make necessary adjustment based on ABGs. 2. Follow chest x-rays per protocol. 3. Continue empiric antibiotic. 4. Finish the course of remdesivir. 5. Finish the course of dexamethasone. 6. DVT prophylaxis with subcutaneous heparin. 7. Patient is critical. We will follow along with you. Discussed with RN and RT. 8. LFTs improving 9. enteral nutrition. Updated 08/11/2021 1. We will continue present assist control mode. Wean FiO2 to 90% and continue PEEP at 10. make necessary adjustment based on ABGs. 2. Follow chest x-rays per protocol. 3. Continue empiric antibiotic. 4. Finish the course of remdesivir. 5. Finish the course of dexamethasone. 6. DVT prophylaxis with subcutaneous heparin. 7. Patient is critical. We will follow along with you. Discussed with RN and RT. 8. LFTs improving 9. Start enteral nutrition. CLYDE KANG MD Aug 13, 2021 09:35
[2021-08-13 11:16] LABS: % BANDS 6 % (0-9); % LYMPHS 5 % (24-48); % MONOS 1 % (0-10); % SEGS 88 % (35-66); PLT ESTIMATE ADEQUATE (ADEQUATE)
[2021-08-14] VITALS (24 sets, daily range): BP systolic 90–167; BP diastolic 50–70
[2021-08-14] MEDS: MIDAZOLAM 100mg/100ml NS BAG 100 ML IV PRN ×2 (01:10→13:02)
[2021-08-14] MEDS: NORCURON - VECURONIUM 50 MG in IV NORMAL SALINE 50ML 50 ML IV PRN ×4 (02:07→23:21)
[2021-08-14] MEDS: PROPOFOL 100 ML IV PRN ×5 (04:22→23:58)
[2021-08-14] MEDS: PIPERACILLIN/TAZOBACTAM 3.375 GM in IV NORMAL SALINE 50ML 50 ML IV SCH ×4 (05:38→23:57)
[2021-08-14] MEDS: HEPARIN for SUB-Q USE 5,000 UNIT/ML VIAL. SQ SCH ×3 (05:38→21:09)
[2021-08-14 05:52] LABS: BLOOD UREA NITROGEN 21 mg/dL (8-26); CALCIUM 7.8 mg/dL (8.5-10.1); CARBON DIOXIDE 40 mmol/L (21-32); CHLORIDE 102 mmol/L (98-107); CREATININE 0.8 mg/dL (0.7-1.3); GFR 107.6; GLUCOSE 129 mg/dL (70-99); POTASSIUM 5.5 mmol/L (3.5-5.1); SODIUM 138 mmol/L (136-145)
[2021-08-14 05:59] LABS: BASO % 0 % (0-3); EOS % 1 % (0-3); HEMATOCRIT 34.1 % (39.0-53.0); HEMOGLOBIN 11.3 g/dL (13.0-17.5); LYMPH # 0.3 x10^3/uL (1.0-4.8); LYMPH % 4 % (24-48); MEAN CORPUSCULAR HEMOGLOBIN 31 pg (25-35); MEAN CORPUSCULAR HGB CONC 33 g/dL (31-37); MEAN CORPUSCULAR VOLUME 93 fL (79-100); MONO # 0.5 x10^3/uL (0.0-1.1); MONO % 6 % (0-9); NEUT # 7.2 x10^3/uL (1.8-7.7); NEUT % 90 % (31-73); PLATELET COUNT 124 x10^3/uL (140-400); RED BLOOD COUNT 3.68 x10^6/uL (4.30-5.70); RED CELL DISTRIBUTION WIDTH 12.6 % (11.5-14.5)
--- NOTE | 2021-08-14 06:00 | PDOC ---
PULMONARY PROGRESS NOTES DATE: 08/14/21 TIME: 05:58 Subjective Remains intubated and sedated On assist control mode, 100% FiO2. peep increased to 11 sedated on prop versed fentanyl on vec gtt Vitals Vital Signs Date Time Temp Pulse Resp B/P (MAP) Pulse Ox O2 Delivery O2 Flow Rate FiO2 08/14/21 05:00 92 Ventilator 08/14/21 05:00 70 22 92/52 (65) 08/14/21 04:00 98.9 98.9 Comments ros unable to obtain sedated on vent Visual exam done due to COVID-19 pneumonia. no distress nc at rrr no accessory muscle use abd obese No skin rash no leg edema Labs Laboratory Tests Test 08/12/21 08:05 08/12/21 11:30 08/13/21 06:00 08/13/21 08:00 O2 Saturation 89 % (92-99) 92 % (92-99) Arterial Blood pH 7.43 (7.35-7.45) 7.32 (7.35-7.45) Arterial Blood pCO2 at Patient Temp 44 mmHg (35-46) 68 mmHg (35-46) Arterial Blood pO2 at Patient Temp 58 mmHg (75-108) 66 mmHg (75-108) Arterial Blood HCO3 28 mmol/L (21-28) 35 mmol/L (21-28) Arterial Blood Base Excess 3 mmol/L (-3-3) 6 mmol/L (-3-3) FiO2 100 100 Sodium Level 139 mmol/L (136-145) Potassium Level 5.1 mmol/L (3.5-5.1) Chloride Level 106 mmol/L (98-107) Carbon Dioxide Level 37 mmol/L (21-32) Anion Gap (6-14) Blood Urea Nitrogen 19 mg/dL (8-26) Creatinine 0.8 mg/dL (0.7-1.3) Estimated GFR (Cockcroft-Gault) 107.6 Glucose Level 120 mg/dL (70-99) Calcium Level 7.2 mg/dL (8.5-10.1) White Blood Count 11.0 x10^3/uL (4.0-11.0) Red Blood Count 4.20 x10^6/uL (4.30-5.70) Hemoglobin 12.7 g/dL (13.0-17.5) Hematocrit 39.0 % (39.0-53.0) Mean Corpuscular Volume 93 fL (79-100) Mean Corpuscular Hemoglobin 30 pg (25-35) Mean Corpuscular Hemoglobin Concent 33 g/dL (31-37) Red Cell Distribution Width 13.0 % (11.5-14.5) Platelet Count 151 x10^3/uL (140-400) Neutrophils (%) (Auto) 91 % (31-73) Lymphocytes (%) (Auto) 4 % (24-48) Monocytes (%) (Auto) 5 % (0-9) Eosinophils (%) (Auto) 0 % (0-3) Basophils (%) (Auto) 0 % (0-3) Neutrophils # (Auto) 10.0 x10^3/uL (1.8-7.7) Lymphocytes # (Auto) 0.5 x10^3/uL (1.0-4.8) Monocytes # (Auto) 0.5 x10^3/uL (0.0-1.1) Eosinophils # (Auto) 0.0 x10^3/uL (0.0-0.7) Basophils # (Auto) 0.0 x10^3/uL (0.0-0.2) Segmented Neutrophils % 88 % (35-66) Band Neutrophils % 6 % (0-9) Lymphocytes % 5 % (24-48) Monocytes % 1 % (0-10) Platelet Estimate Adequate (ADEQUATE) Total Bilirubin 0.8 mg/dL (0.2-1.0) Direct Bilirubin 0.6 mg/dL (0.0-0.2) Aspartate Amino Transf (AST/SGOT) 120 U/L (15-37) Alanine Aminotransferase (ALT/SGPT) 207 U/L (16-63) Alkaline Phosphatase 126 U/L (46-116) Total Protein 6.5 g/dL (6.4-8.2) Albumin 1.8 g/dL (3.4-5.0) Test 08/14/21 05:26 Sodium Level 138 mmol/L (136-145) Potassium Level 5.5 mmol/L (3.5-5.1) Chloride Level 102 mmol/L (98-107) Carbon Dioxide Level 40 mmol/L (21-32) Anion Gap (6-14) Blood Urea Nitrogen 21 mg/dL (8-26) Creatinine 0.8 mg/dL (0.7-1.3) Estimated GFR (Cockcroft-Gault) 107.6 Glucose Level 129 mg/dL (70-99) Calcium Level 7.8 mg/dL (8.5-10.1) Laboratory Tests Test 08/13/21 06:00 08/13/21 08:00 08/14/21 05:26 White Blood Count 11.0 x10^3/uL (4.0-11.0) Red Blood Count 4.20 x10^6/uL (4.30-5.70) Hemoglobin 12.7 g/dL (13.0-17.5) Hematocrit 39.0 % (39.0-53.0) Mean Corpuscular Volume 93 fL (79-100) Mean Corpuscular Hemoglobin 30 pg (25-35) Mean Corpuscular Hemoglobin Concent 33 g/dL (31-37) Red Cell Distribution Width 13.0 % (11.5-14.5) Platelet Count 151 x10^3/uL (140-400) Neutrophils (%) (Auto) 91 % (31-73) Lymphocytes (%) (Auto) 4 % (24-48) Monocytes (%) (Auto) 5 % (0-9) Eosinophils (%) (Auto) 0 % (0-3) Basophils (%) (Auto) 0 % (0-3) Neutrophils # (Auto) 10.0 x10^3/uL (1.8-7.7) Lymphocytes # (Auto) 0.5 x10^3/uL (1.0-4.8) Monocytes # (Auto) 0.5 x10^3/uL (0.0-1.1) Eosinophils # (Auto) 0.0 x10^3/uL (0.0-0.7) Basophils # (Auto) 0.0 x10^3/uL (0.0-0.2) Segmented Neutrophils % 88 % (35-66) Band Neutrophils % 6 % (0-9) Lymphocytes % 5 % (24-48) Monocytes % 1 % (0-10) Platelet Estimate Adequate (ADEQUATE) Total Bilirubin 0.8 mg/dL (0.2-1.0) Direct Bilirubin 0.6 mg/dL (0.0-0.2) Aspartate Amino Transf (AST/SGOT) 120 U/L (15-37) Alanine Aminotransferase (ALT/SGPT) 207 U/L (16-63) Alkaline Phosphatase 126 U/L (46-116) Total Protein 6.5 g/dL (6.4-8.2) Albumin 1.8 g/dL (3.4-5.0) O2 Saturation 92 % (92-99) Arterial Blood pH 7.32 (7.35-7.45) Arterial Blood pCO2 at Patient Temp 68 mmHg (35-46) Arterial Blood pO2 at Patient Temp 66 mmHg (75-108) Arterial Blood HCO3 35 mmol/L (21-28) Arterial Blood Base Excess 6 mmol/L (-3-3) FiO2 100 Sodium Level 138 mmol/L (136-145) Potassium Level 5.5 mmol/L (3.5-5.1) Chloride Level 102 mmol/L (98-107) Carbon Dioxide Level 40 mmol/L (21-32) Anion Gap (6-14) Blood Urea Nitrogen 21 mg/dL (8-26) Creatinine 0.8 mg/dL (0.7-1.3) Estimated GFR (Cockcroft-Gault) 107.6 Glucose Level 129 mg/dL (70-99) Calcium Level 7.8 mg/dL (8.5-10.1) Comments Chest x-ray reviewed 08/13/2021. Diffuse bilateral interstitial infiltrates with mild worsening. No significant pleural effusions Impression . 1. Acute hypoxic respiratory failure secondary to acute respiratory distress syndrome from COVID-[address] chest with extensive and diffuse ground glass infiltrates throughout both lungs. No evidence of pulmonary embolism. No significant pleural effusion. 3. Increased CPK and troponin, possible rhabdomyolysis. 4. Increased liver function tests, likely secondary to COVID-19. LFTs worsening 5. Severe protein calorie malnutrition. Plan . Updated 08/14/2021 1. We will continue vent support assist control mode. setting reviewed Continue present oxygen at 100% FiO2 and PEEP increased to 11 titrate peep fio2 as tolerated Follow ABGs and make necessary adjustment based on ABGs. Okay with permissive hypercapnia. 2. Follow chest x-rays as needed. 3. Continue empiric antibiotic. 4. remdesivir. 5. dexamethasone. 6. DVT prophylaxis with subcutaneous heparin. 7. Patient remains critically ill. 8. LFTs have worsened. Will monitor for now. Likely related to Covid ? meds 9. enteral nutrition. Discussed with RN and RT. Chart reviewed imaging studies reviewed. Critical care time 30 minutes Updated 08/13/2021 1. We will continue present assist control mode. Continue present oxygen at 100% FiO2 and increase the PEEP to 11 Follow ABGs and make necessary adjustment based on ABGs. Okay with permissive hypercapnia. 2. Follow chest x-rays as needed. 3. Continue empiric antibiotic. 4. Finish the course of remdesivir. 5. Finish the course of dexamethasone. 6. DVT prophylaxis with subcutaneous heparin. 7. Patient remains critically ill. 8. LFTs have worsened. Will monitor for now. Likely related to Covid. 9. enteral nutrition. Discussed with RN and RT. Chart reviewed imaging studies reviewed. Critical care time 30 minutes Updated 08/12/2021 1. We will continue present assist control mode. Continue present oxygen at 100% FiO2 and increase the PEEP to 10 Follow ABGs and make necessary adjustment based on ABGs. 2. Follow chest x-rays per protocol. 3. Continue empiric antibiotic. 4. Finish the course of remdesivir. 5. Finish the course of dexamethasone. 6. DVT prophylaxis with subcutaneous heparin. 7. Patient is critical. We will follow along with you. Discussed with RN and RT. 8. LFTs improving 9. enteral nutrition. Updated 08/11/2021 1. We will continue present assist control mode. Wean FiO2 to 90% and continue PEEP at 10. make necessary adjustment based on ABGs. 2. Follow chest x-rays per protocol. 3. Continue empiric antibiotic. 4. Finish the course of remdesivir. 5. Finish the course of dexamethasone. 6. DVT prophylaxis with subcutaneous heparin. 7. Patient is critical. We will follow along with you. Discussed with RN and RT. 8. LFTs improving 9. Start enteral nutrition. FADY BARR MD Aug 14, 2021 06:00
[2021-08-14 07:56] LABS: BASE EXCESS ABG 8 mmol/L (-3-3); HCO3 ABG 35 mmol/L (21-28); PO2 ABG 63 mmHg (75-108); SAT O2 ABG 92 % (92-99)
--- NOTE | 2021-08-14 07:58 | PDOC ---
[employer] PROGRESS NOTE Date of Service DOS: DATE: 08/14/21 TIME: 07:55 Chief Complaint Chief Complaint Acute hypoxic respiratory failure secondary to COVID-19 pneumonia NSTEMI Incarceration -Patient presented to emergency room today due to worsening Covid symptoms: Was diagnosed at his care home had been treated with prednisone and azithromycin -Required endotracheal intubation in emergency room, sedated when evaluated -Covid [address] -Consult to pulmonary -ICU admission -Patient with very elevated troponins as well -Awaiting EKG, starting heparin drip trend troponins -Wean oxygen as tolerated -Wean sedation as tolerated -Severe malnutrition History of Present Illness History of Present Illness Patient is a 41 year old male who presents from [facility] with respiratory distress. He tested positive for Covid. He has had symptoms for 1 week. He has had cough and shortness of breath. Per report he was diagnosed with a COVID-19 pneumonia. He was given azithromycin and prednisone for treatment. He continued to worsen and today showed signs of respiratory distress. When EMS arrived they applied 15 L nonrebreather and he was only able to maintain sats of 69%. Patient denies having chest pain. Speaking in one-word responses. But is alert and oriented. Patient denies any medical problems, chronic medications, or allergies 08/09/2021: Patient seen and evaluated. Afebrile, on vent with FiO2 100%, PEEP 10. Tested COVID-19 positive prior to admission yesterday. We will continue treatment with COVID-19 pneumonia with remdesivir (day 2/5), Decadron 6 mg daily to complete 10-day course, and empiric antibiotics. Will maintain patient on heparin infusion due to elevated troponins. Will follow cardiology recommendations. Appreciate pulmonology and cardiology input on the management of this patient. Critical care time 30 minutes spent reviewing charts, reviewing labs, reviewing imaging, and discussion with RN. 08/10/2021: Afebrile. On ventilator with FiO2 100%, PEEP 10. Highest troponin levels 2.038. Per cardiology, probably demand ischemia. Continue heparin infusion for 48 hours, and TTE once COVID-19 recovered. Continue remdesivir for full course. Continue Decadron and empiric antibiotics. Critical care time 30 minutes spent reviewing charts, reviewing labs, reviewing imaging, and discussion with RN. 08/11/2021: Afebrile. On vent with FiO2 100%, PEEP 10. Heparin been discontinued, per cardiology. Continue daily aspirin. TTE once COVID-19 recovered. Continue remdesivir day /. Continue Decadron for full 10-day course and empiric antibiotics. Critical care time 30 minutes spent reviewing charts, reviewing labs, reviewing imaging, and discussion with RN. 08/12/2021: Afebrile; on vent with FiO2 100%, PEEP 10. Remdesivir day 03/31. LFTs improving, will check again tomorrow. Continue Decadron for full 10-day course and empiric antibiotics. Appreciate cardiology recommendations; continue daily aspirin and TTE once COVID-19 recovered. Critical care time 30 minutes spent reviewing charts, reviewing labs, reviewing imaging, and discussion with RN. 08/13/2021: Afebrile. On vent with FiO2 40%, PEEP 10. Completed remdesivir; continue to monitor for improving LFTs. Discussed with Dr. Welsh about treatment with Tocilizumab. Concerned however for severely elevated LFTs. Continue Decadron for full 10-day course; last day should be 08/19, then began slow taper. Empiric antibiotics. Appreciate cardiology recommendations; continue daily aspirin and TTE once COVID-19 recovered. Critical care time 30 minutes spent reviewing charts, reviewing labs, reviewing imaging, and discussion with RN. 08/14/2021: No significant changes overnight. Afebrile, on vent with FiO2 100%, PEEP 10. Not a candidate for Tocilizumab at this time due to significant elevated LFTs. Continue Decadron for full 10-day course, then slow taper. Continue empiric antibiotics. Will follow cardiology recommendations; continue daily aspirin and TTE once COVID-19 recovered. Critical care time 30 minutes spent reviewing charts, reviewing labs, reviewing imaging, and discussion with RN. Vitals/I&O Vitals/I&O: Vital Signs Date Time Temp Pulse Resp B/P (MAP) Pulse Ox O2 Delivery O2 Flow Rate FiO2 08/14/21 07:39 91 Ventilator 08/14/21 07:00 74 22 92/52 (65) 08/14/21 04:00 98.9 98.9 I & O 08/13/21 08/13/21 08/14/21 15:00 23:00 07:00 Intake Total 200 ml 200 ml 2658 ml Output Total 590 ml 800 ml 385 ml Balance -390 ml -600 ml 2273 ml Physical Exam General: Other (sedated) Heart: Regular rate Lungs: Other (Intubated on vent) Abdomen: Other (non-distended ) Extremities: No clubbing, No cyanosis Skin: No significant lesion Labs Labs: Laboratory Tests Test 08/13/21 08:00 08/14/21 05:26 O2 Saturation 92 % (92-99) Arterial Blood pH 7.32 (7.35-7.45) Arterial Blood pCO2 at Patient Temp 68 mmHg (35-46) Arterial Blood pO2 at Patient Temp 66 mmHg (75-108) Arterial Blood HCO3 35 mmol/L (21-28) Arterial Blood Base Excess 6 mmol/L (-3-3) FiO2 100 White Blood Count 8.0 x10^3/uL (4.0-11.0) Red Blood Count 3.68 x10^6/uL (4.30-5.70) Hemoglobin 11.3 g/dL (13.0-17.5) Hematocrit 34.1 % (39.0-53.0) Mean Corpuscular Volume 93 fL (79-100) Mean Corpuscular Hemoglobin 31 pg (25-35) Mean Corpuscular Hemoglobin Concent 33 g/dL (31-37) Red Cell Distribution Width 12.6 % (11.5-14.5) Platelet Count 124 x10^3/uL (140-400) Neutrophils (%) (Auto) 90 % (31-73) Lymphocytes (%) (Auto) 4 % (24-48) Monocytes (%) (Auto) 6 % (0-9) Eosinophils (%) (Auto) 1 % (0-3) Basophils (%) (Auto) 0 % (0-3) Neutrophils # (Auto) 7.2 x10^3/uL (1.8-7.7) Lymphocytes # (Auto) 0.3 x10^3/uL (1.0-4.8) Monocytes # (Auto) 0.5 x10^3/uL (0.0-1.1) Eosinophils # (Auto) 0.0 x10^3/uL (0.0-0.7) Basophils # (Auto) 0.0 x10^3/uL (0.0-0.2) Sodium Level 138 mmol/L (136-145) Potassium Level 5.5 mmol/L (3.5-5.1) Chloride Level 102 mmol/L (98-107) Carbon Dioxide Level 40 mmol/L (21-32) Anion Gap (6-14) Blood Urea Nitrogen 21 mg/dL (8-26) Creatinine 0.8 mg/dL (0.7-1.3) Estimated GFR (Cockcroft-Gault) 107.6 Glucose Level 129 mg/dL (70-99) Calcium Level 7.8 mg/dL (8.5-10.1) Assessment and Plan Assessmemt and Plan Problems Medical Problems: (1) Acute respiratory distress syndrome (ARDS) due to COVID-19 virus Status: Acute (2) Hyponatremia Status: Acute (3) NSTEMI (non-ST elevated myocardial infarction) Status: Acute (4) Pneumonia due to COVID-19 virus Status: Acute (5) Respiratory failure Status: Acute Comment Review of Relevant I have reviewed the following items vincent (where applicable) has been applied. Justifications for Admission Other Justification SANDRA GALLOWAY MD Aug 14, 2021 07:58
[2021-08-14] MEDS: DEXAMETHASONE SOD PHOS 4 MG/ML VIAL IVP SCH ×2 (08:35→15:20)
[2021-08-14] MEDS: SENNOSIDES/DOCUSATE 8.6/50MG TABLET. PO SCH ×2 (08:35→21:07)
[2021-08-14] MEDS: ASPIRIN CHEWABLE 81 MG TABLET. PO SCH (08:35)
[2021-08-14] MEDS: FAMOTIDINE 20 MG/2 ML VIAL IVP SCH ×2 (08:35→21:08)
[2021-08-14] MEDS: ELECTROLYTE (ICU) PROTOCOL. MC SCH (08:35)
[2021-08-14] MEDS: MULTIVITAMINS,THERAPEUTIC 5 ML ORAL LIQUID. PEG SCH (08:35)
[2021-08-14 09:52] LABS: PCO2 ABG 60 mmHg (35-46)
[2021-08-14] MEDS: fentaNYL HIGH DOSE PCA 55 ML IV PRN ×2 (10:06→23:58)
--- NOTE | 2021-08-14 13:18 | RAD ---
XR CHEST 1V History: Desaturation on vent Comparison: 08/13/2021 Technique: Portable AP chest radiograph. Findings: Tubes and lines: Endotracheal tube tip projects 7 cm above the bill. Right IJ central venous cathet er tip projects at the level of the lower SVC. Gastric tube courses below the left diaphragm. Lungs and pleura: Hazy bilateral airspace opacities not significantly changed. No pleural effusion or pneumothorax. Cardiac silhouette and pulmonary vasculature: Stable. Osseous structures and other: No acute findings. Impression: 1. Tubes and lines as above. No pneumothorax. 2. Persistent bilateral airspace opacity. Electronically signed by: Roland Siu MD (08/14/2021 1:16 PM) [id number]
[2021-08-14] MEDS ORDERED: FUROSEMIDE 40 MG/4 ML VIAL. IVP ONE (13:30)
[2021-08-15] VITALS (24 sets, daily range): BP systolic 92–104; BP diastolic 51–59
[2021-08-15] MEDS: MIDAZOLAM 100mg/100ml NS BAG 100 ML IV PRN ×3 (00:38→20:52)
[2021-08-15] MEDS: NORCURON - VECURONIUM 50 MG in IV NORMAL SALINE 50ML 50 ML IV PRN ×3 (04:15→17:50)
[2021-08-15] MEDS: PIPERACILLIN/TAZOBACTAM 3.375 GM in IV NORMAL SALINE 50ML 50 ML IV SCH ×4 (05:31→23:16)
[2021-08-15] MEDS: HEPARIN for SUB-Q USE 5,000 UNIT/ML VIAL. SQ SCH ×3 (05:39→20:52)
[2021-08-15] MEDS: PROPOFOL 100 ML IV PRN ×4 (05:50→22:08)
[2021-08-15 07:04] LABS: BASO % 0 % (0-3); EOS % 0 % (0-3); HEMOGLOBIN 11.5 g/dL (13.0-17.5); LYMPH # 0.4 x10^3/uL (1.0-4.8); LYMPH % 5 % (24-48); MEAN CORPUSCULAR HEMOGLOBIN 31 pg (25-35); MEAN CORPUSCULAR HGB CONC 33 g/dL (31-37); MEAN CORPUSCULAR VOLUME 93 fL (79-100); MONO # 0.3 x10^3/uL (0.0-1.1); MONO % 4 % (0-9); NEUT % 91 % (31-73); PLATELET COUNT 129 x10^3/uL (140-400); RED BLOOD COUNT 3.76 x10^6/uL (4.30-5.70); WHITE BLOOD COUNT 7.7 x10^3/uL (4.0-11.0)
--- NOTE | 2021-08-15 07:05 | PDOC ---
PULMONARY PROGRESS NOTES DATE: 08/15/21 TIME: 07:05 Subjective Remains intubated and sedated On assist control mode, 100% FiO2. peep increased to 12 sedated on prop versed fentanyl on vec gtt Vitals Vital Signs Date Time Temp Pulse Resp B/P (MAP) Pulse Ox O2 Delivery O2 Flow Rate FiO2 08/15/21 06:00 80 22 101/58 (72) 93 Ventilator 08/15/21 04:00 99.0 99.0 08/14/21 10:06 25.0 Comments ros unable to obtain sedated on vent Visual exam done due to COVID-19 pneumonia. no distress nc at rrr no accessory muscle use abd obese No skin rash no leg edema Lungs: Other (Intubated on vent) Labs Laboratory Tests Test 08/13/21 08:00 08/14/21 05:26 08/14/21 07:40 O2 Saturation 92 % (92-99) 92 % (92-99) Arterial Blood pH 7.32 (7.35-7.45) 7.39 (7.35-7.45) Arterial Blood pCO2 at Patient Temp 68 mmHg (35-46) 60 mmHg (35-46) Arterial Blood pO2 at Patient Temp 66 mmHg (75-108) 63 mmHg (75-108) Arterial Blood HCO3 35 mmol/L (21-28) 35 mmol/L (21-28) Arterial Blood Base Excess 6 mmol/L (-3-3) 8 mmol/L (-3-3) FiO2 100 100/vent White Blood Count 8.0 x10^3/uL (4.0-11.0) Red Blood Count 3.68 x10^6/uL (4.30-5.70) Hemoglobin 11.3 g/dL (13.0-17.5) Hematocrit 34.1 % (39.0-53.0) Mean Corpuscular Volume 93 fL (79-100) Mean Corpuscular Hemoglobin 31 pg (25-35) Mean Corpuscular Hemoglobin Concent 33 g/dL (31-37) Red Cell Distribution Width 12.6 % (11.5-14.5) Platelet Count 124 x10^3/uL (140-400) Neutrophils (%) (Auto) 90 % (31-73) Lymphocytes (%) (Auto) 4 % (24-48) Monocytes (%) (Auto) 6 % (0-9) Eosinophils (%) (Auto) 1 % (0-3) Basophils (%) (Auto) 0 % (0-3) Neutrophils # (Auto) 7.2 x10^3/uL (1.8-7.7) Lymphocytes # (Auto) 0.3 x10^3/uL (1.0-4.8) Monocytes # (Auto) 0.5 x10^3/uL (0.0-1.1) Eosinophils # (Auto) 0.0 x10^3/uL (0.0-0.7) Basophils # (Auto) 0.0 x10^3/uL (0.0-0.2) Sodium Level 138 mmol/L (136-145) Potassium Level 5.5 mmol/L (3.5-5.1) Chloride Level 102 mmol/L (98-107) Carbon Dioxide Level 40 mmol/L (21-32) Anion Gap (6-14) Blood Urea Nitrogen 21 mg/dL (8-26) Creatinine 0.8 mg/dL (0.7-1.3) Estimated GFR (Cockcroft-Gault) 107.6 Glucose Level 129 mg/dL (70-99) Calcium Level 7.8 mg/dL (8.5-10.1) Laboratory Tests Test 08/14/21 07:40 O2 Saturation 92 % (92-99) Arterial Blood pH 7.39 (7.35-7.45) Arterial Blood pCO2 at Patient Temp 60 mmHg (35-46) Arterial Blood pO2 at Patient Temp 63 mmHg (75-108) Arterial Blood HCO3 35 mmol/L (21-28) Arterial Blood Base Excess 8 mmol/L (-3-3) FiO2 100/vent Comments reviewed cxr 08/14 No pneumothorax. ett ok Persistent bilateral airspace opacity. Chest x-ray reviewed 08/13/2021. Diffuse bilateral interstitial infiltrates with mild worsening. No significant pleural effusions Impression . 1. Acute hypoxic respiratory failure secondary to acute respiratory distress syndrome from COVID-[address] chest with extensive and diffuse ground glass infiltrates throughout both lungs. No evidence of pulmonary embolism. No significant pleural effusion. 3. Increased CPK and troponin, possible rhabdomyolysis. 4. Increased liver function tests, likely secondary to COVID-19. LFTs worsening 5. Severe protein calorie malnutrition. Plan . Updated 08/15/2021 1. We will continue vent support assist control mode. setting reviewed Continue present oxygen at 100% FiO2 and PEEP increased to 12 titrate peep fio2 as tolerated cxr 08/14 no ptx Follow ABGs and make necessary adjustment based on ABGs. Okay with permissive hypercapnia. 2. Follow chest x-rays as needed. 3. Continue empiric antibiotic. 4. remdesivir. 5. dexamethasone. 6. DVT prophylaxis with subcutaneous heparin. 7. Patient remains critically ill. 8. LFTs have worsened. Will monitor for now. Likely related to Covid ? meds 9. enteral nutrition. Discussed with RN and RT. Chart reviewed imaging studies reviewed. Updated 08/14/2021 1. We will continue vent support assist control mode. setting reviewed Continue present oxygen at 100% FiO2 and PEEP increased to 11 titrate peep fio2 as tolerated Follow ABGs and make necessary adjustment based on ABGs. Okay with permissive hypercapnia. 2. Follow chest x-rays as needed. 3. Continue empiric antibiotic. 4. remdesivir. 5. dexamethasone. 6. DVT prophylaxis with subcutaneous heparin. 7. Patient remains critically ill. 8. LFTs have worsened. Will monitor for now. Likely related to Covid ? meds 9. enteral nutrition. Discussed with RN and RT. Chart reviewed imaging studies reviewed. Critical care time 30 minutes Updated 08/13/2021 1. We will continue present assist control mode. Continue present oxygen at 100% FiO2 and increase the PEEP to 11 Follow ABGs and make necessary adjustment based on ABGs. Okay with permissive hypercapnia. 2. Follow chest x-rays as needed. 3. Continue empiric antibiotic. 4. Finish the course of remdesivir. 5. Finish the course of dexamethasone. 6. DVT prophylaxis with subcutaneous heparin. 7. Patient remains critically ill. 8. LFTs have worsened. Will monitor for now. Likely related to Covid. 9. enteral nutrition. Discussed with RN and RT. Chart reviewed imaging studies reviewed. Critical care time 30 minutes Updated 08/12/2021 1. We will continue present assist control mode. Continue present oxygen at 100% FiO2 and increase the PEEP to 10 Follow ABGs and make necessary adjustment based on ABGs. 2. Follow chest x-rays per protocol. 3. Continue empiric antibiotic. 4. Finish the course of remdesivir. 5. Finish the course of dexamethasone. 6. DVT prophylaxis with subcutaneous heparin. 7. Patient is critical. We will follow along with you. Discussed with RN and RT. 8. LFTs improving 9. enteral nutrition. Updated 08/11/2021 1. We will continue present assist control mode. Wean FiO2 to 90% and continue PEEP at 10. make necessary adjustment based on ABGs. 2. Follow chest x-rays per protocol. 3. Continue empiric antibiotic. 4. Finish the course of remdesivir. 5. Finish the course of dexamethasone. 6. DVT prophylaxis with subcutaneous heparin. 7. Patient is critical. We will follow along with you. Discussed with RN and RT. 8. LFTs improving 9. Start enteral nutrition. FADY BARR MD Aug 15, 2021 07:05
--- NOTE | 2021-08-15 07:42 | PDOC ---
[employer] PROGRESS NOTE Date of Service DOS: DATE: 08/15/21 TIME: 07:38 Chief Complaint Chief Complaint Acute hypoxic respiratory failure secondary to COVID-19 pneumonia NSTEMI Incarceration -Patient presented to emergency room today due to worsening Covid symptoms: Was diagnosed at his group home had been treated with prednisone and azithromycin -Required endotracheal intubation in emergency room, sedated when evaluated -Covid [address] -Consult to pulmonary -ICU admission -Patient with very elevated troponins as well -Awaiting EKG, starting heparin drip trend troponins -Wean oxygen as tolerated -Wean sedation as tolerated -Severe malnutrition History of Present Illness History of Present Illness Patient is a 41 year old male who presents from [facility] with respiratory distress. He tested positive for Covid. He has had symptoms for 1 week. He has had cough and shortness of breath. Per report he was diagnosed with a COVID-19 pneumonia. He was given azithromycin and prednisone for treatment. He continued to worsen and today showed signs of respiratory distress. When EMS arrived they applied 15 L nonrebreather and he was only able to maintain sats of 69%. Patient denies having chest pain. Speaking in one-word responses. But is alert and oriented. Patient denies any medical problems, chronic medications, or allergies 08/09/2021: Patient seen and evaluated. Afebrile, on vent with FiO2 100%, PEEP 10. Tested COVID-19 positive prior to admission yesterday. We will continue treatment with COVID-19 pneumonia with remdesivir (day 2/5), Decadron 6 mg daily to complete 10-day course, and empiric antibiotics. Will maintain patient on heparin infusion due to elevated troponins. Will follow cardiology recommendations. Appreciate pulmonology and cardiology input on the management of this patient. Critical care time 30 minutes spent reviewing charts, reviewing labs, reviewing imaging, and discussion with RN. 08/10/2021: Afebrile. On ventilator with FiO2 100%, PEEP 10. Highest troponin levels 2.038. Per cardiology, probably demand ischemia. Continue heparin infusion for 48 hours, and TTE once COVID-19 recovered. Continue remdesivir for full course. Continue Decadron and empiric antibiotics. Critical care time 30 minutes spent reviewing charts, reviewing labs, reviewing imaging, and discussion with RN. 08/11/2021: Afebrile. On vent with FiO2 100%, PEEP 10. Heparin been discontinued, per cardiology. Continue daily aspirin. TTE once COVID-19 recovered. Continue remdesivir day /5. Continue Decadron for full 10-day course and empiric antibiotics. Critical care time 30 minutes spent reviewing charts, reviewing labs, reviewing imaging, and discussion with RN. 08/12/2021: Afebrile; on vent with FiO2 100%, PEEP 10. Remdesivir day 03/31. LFTs improving, will check again tomorrow. Continue Decadron for full 10-day course and empiric antibiotics. Appreciate cardiology recommendations; continue daily aspirin and TTE once COVID-19 recovered. Critical care time 30 minutes spent reviewing charts, reviewing labs, reviewing imaging, and discussion with RN. 08/13/2021: Afebrile. On vent with FiO2 40%, PEEP 10. Completed remdesivir; continue to monitor for improving LFTs. Discussed with Dr. Welsh about treatment with Tocilizumab. Concerned however for severely elevated LFTs. Continue Decadron for full 10-day course; last day should be 08/19, then began slow taper. Empiric antibiotics. Appreciate cardiology recommendations; continue daily aspirin and TTE once COVID-19 recovered. Critical care time 30 minutes spent reviewing charts, reviewing labs, reviewing imaging, and discussion with RN. 08/14/2021: No significant changes overnight. Afebrile, on vent with FiO2 100%, PEEP 10. Not a candidate for Tocilizumab at this time due to significant elevated LFTs. Continue Decadron for full 10-day course, then slow taper. Continue empiric antibiotics. Will follow cardiology recommendations; continue daily aspirin and TTE once COVID-19 recovered. Critical care time 30 minutes spent reviewing charts, reviewing labs, reviewing imaging, and discussion with RN. 08/15/2021: Afebrile. On vent with FiO2 90%, PEEP 12. Decadron increased to 20 mg daily, with taper to begin on 08/19. Not a candidate for Tocilizumab at this time due to significant elevated LFTs; will continue to follow LFTs and readdress possible addition of Tocilizumab if less than 3x upper limit normal. Continue empiric antibiotics. Will follow cardiology recommendations; continue daily aspirin and TTE once COVID-19 recovered. Critical care time 30 minutes spent reviewing charts, reviewing labs, reviewing imaging, and discussion with RN. Vitals/I&O Vitals/I&O: Vital Signs Date Time Temp Pulse Resp B/P (MAP) Pulse Ox O2 Delivery O2 Flow Rate FiO2 08/15/21 06:00 80 22 101/58 (72) 93 Ventilator 08/15/21 04:00 99.0 99.0 08/14/21 10:06 25.0 I & O 08/14/21 08/14/21 08/15/21 15:00 23:00 07:00 Intake Total 200 ml 200 ml 3079 ml Output Total 630 ml 2445 ml 490 ml Balance -430 ml -2245 ml 2589 ml Physical Exam General: Other (sedated) Heart: Regular rate Lungs: Other (Intubated on vent) Abdomen: Other (non-distended ) Extremities: No clubbing, No cyanosis Skin: No significant lesion Labs Labs: Laboratory Tests Test 08/14/21 07:40 08/15/21 05:40 O2 Saturation 92 % (92-99) Arterial Blood pH 7.39 (7.35-7.45) Arterial Blood pCO2 at Patient Temp 60 mmHg (35-46) Arterial Blood pO2 at Patient Temp 63 mmHg (75-108) Arterial Blood HCO3 35 mmol/L (21-28) Arterial Blood Base Excess 8 mmol/L (-3-3) FiO2 100/vent White Blood Count 7.7 x10^3/uL (4.0-11.0) Red Blood Count 3.76 x10^6/uL (4.30-5.70) Hemoglobin 11.5 g/dL (13.0-17.5) Hematocrit 35.0 % (39.0-53.0) Mean Corpuscular Volume 93 fL (79-100) Mean Corpuscular Hemoglobin 31 pg (25-35) Mean Corpuscular Hemoglobin Concent 33 g/dL (31-37) Red Cell Distribution Width 13.0 % (11.5-14.5) Platelet Count 129 x10^3/uL (140-400) Neutrophils (%) (Auto) 91 % (31-73) Lymphocytes (%) (Auto) 5 % (24-48) Monocytes (%) (Auto) 4 % (0-9) Eosinophils (%) (Auto) 0 % (0-3) Basophils (%) (Auto) 0 % (0-3) Neutrophils # (Auto) 7.0 x10^3/uL (1.8-7.7) Lymphocytes # (Auto) 0.4 x10^3/uL (1.0-4.8) Monocytes # (Auto) 0.3 x10^3/uL (0.0-1.1) Eosinophils # (Auto) 0.0 x10^3/uL (0.0-0.7) Basophils # (Auto) 0.0 x10^3/uL (0.0-0.2) Assessment and Plan Assessmemt and Plan Problems Medical Problems: (1) Acute respiratory distress syndrome (ARDS) due to COVID-19 virus Status: Acute (2) Hyponatremia Status: Acute (3) NSTEMI (non-ST elevated myocardial infarction) Status: Acute (4) Pneumonia due to COVID-19 virus Status: Acute (5) Respiratory failure Status: Acute Comment Review of Relevant I have reviewed the following items vincent (where applicable) has been applied. Medications: Current Medications Medications (Trade) Dose Ordered Sig/Magalis Route PRN Reason Start Time Stop Time Status Last Admin Dose Admin Furosemide (Lasix) 40 mg 1X ONCE IVP 08/14/21 13:30 08/14/21 14:26 DC 08/14/21 15:18 Dexamethasone Sodium Phosphate (Decadron) 20 mg DAILY IVP 08/14/21 16:00 08/19/21 08:59 08/14/21 15:20 Justifications for Admission Other Justification SANDRA GALLOWAY MD Aug 15, 2021 07:42
[2021-08-15 08:38] LABS: BASE EXCESS ABG 10 mmol/L (-3-3); HCO3 ABG 38 mmol/L (21-28); PO2 ABG 72 mmHg (75-108); SAT O2 ABG 93 % (92-99)
[2021-08-15] MEDS: SENNOSIDES/DOCUSATE 8.6/50MG TABLET. PO SCH ×2 (08:57→20:51)
[2021-08-15] MEDS: MULTIVITAMINS,THERAPEUTIC 5 ML ORAL LIQUID. PEG SCH (08:57)
[2021-08-15] MEDS: DEXAMETHASONE SOD PHOS 4 MG/ML VIAL IVP SCH (08:58)
[2021-08-15] MEDS: FAMOTIDINE 20 MG/2 ML VIAL IVP SCH ×2 (08:58→20:51)
[2021-08-15] MEDS: ELECTROLYTE (ICU) PROTOCOL. MC SCH (08:58)
[2021-08-15] MEDS: ASPIRIN CHEWABLE 81 MG TABLET. PO SCH (08:58)
[2021-08-15 09:10] LABS: PCO2 ABG 71 mmHg (35-46)
[2021-08-15] MEDS: fentaNYL HIGH DOSE PCA 55 ML IV PRN (12:05)
[2021-08-16] VITALS (26 sets, daily range): BP systolic 92–161; BP diastolic 51–96
[2021-08-16] MEDS: PROPOFOL 100 ML IV PRN ×5 (01:36→22:33)
[2021-08-16] MEDS: NORCURON - VECURONIUM 50 MG in IV NORMAL SALINE 50ML 50 ML IV PRN ×3 (01:39→17:52)
[2021-08-16] MEDS: fentaNYL HIGH DOSE PCA 55 ML IV PRN ×2 (02:45→15:27)
[2021-08-16] MEDS: PIPERACILLIN/TAZOBACTAM 3.375 GM in IV NORMAL SALINE 50ML 50 ML IV SCH ×4 (05:48→23:47)
[2021-08-16] MEDS: HEPARIN for SUB-Q USE 5,000 UNIT/ML VIAL. SQ SCH ×3 (05:49→21:13)
[2021-08-16 06:22] LABS: BASO % 0 % (0-3); EOS % 0 % (0-3); HEMATOCRIT 33.3 % (39.0-53.0); LYMPH # 0.4 x10^3/uL (1.0-4.8); LYMPH % 4 % (24-48); MEAN CORPUSCULAR HEMOGLOBIN 31 pg (25-35); MEAN CORPUSCULAR HGB CONC 33 g/dL (31-37); MEAN CORPUSCULAR VOLUME 93 fL (79-100); MONO # 0.7 x10^3/uL (0.0-1.1); MONO % 8 % (0-9); NEUT # 8.6 x10^3/uL (1.8-7.7); NEUT % 88 % (31-73); PLATELET COUNT 140 x10^3/uL (140-400); RED BLOOD COUNT 3.58 x10^6/uL (4.30-5.70); RED CELL DISTRIBUTION WIDTH 13.4 % (11.5-14.5); WHITE BLOOD COUNT 9.8 x10^3/uL (4.0-11.0)
[2021-08-16 06:41] LABS: ALBUMIN 1.9 g/dL (3.4-5.0); DIRECT BILIRUBIN 0.6 mg/dL (0.0-0.2); TOTAL BILIRUBIN 0.8 mg/dL (0.2-1.0); TOTAL PROTEIN 6.3 g/dL (6.4-8.2)
--- NOTE | 2021-08-16 07:22 | PDOC ---
PULMONARY PROGRESS NOTES DATE: 08/16/21 TIME: 07:22 Subjective Patient on assist control ventilation 100%, 12 of PEEP Sedated No overnight events Vitals Vital Signs Date Time Temp Pulse Resp B/P (MAP) Pulse Ox O2 Delivery O2 Flow Rate FiO2 08/16/21 06:00 62 26 96/55 (69) 95 Ventilator 08/16/21 04:00 98.6 98.6 Lungs: Crackles Cardiovascular: S1, S2 Abdomen: Soft Extremities: Other (Some edema) Skin: Warm, No Rashes Labs Laboratory Tests Test 08/14/21 07:40 08/15/21 05:40 08/15/21 08:00 08/16/21 06:00 O2 Saturation 92 % (92-99) 93 % (92-99) Arterial Blood pH 7.39 (7.35-7.45) 7.35 (7.35-7.45) Arterial Blood pCO2 at Patient Temp 60 mmHg (35-46) 71 mmHg (35-46) Arterial Blood pO2 at Patient Temp 63 mmHg (75-108) 72 mmHg (75-108) Arterial Blood HCO3 35 mmol/L (21-28) 38 mmol/L (21-28) Arterial Blood Base Excess 8 mmol/L (-3-3) 10 mmol/L (-3-3) FiO2 100/vent 100/vent White Blood Count 7.7 x10^3/uL (4.0-11.0) 9.8 x10^3/uL (4.0-11.0) Red Blood Count 3.76 x10^6/uL (4.30-5.70) 3.58 x10^6/uL (4.30-5.70) Hemoglobin 11.5 g/dL (13.0-17.5) 11.0 g/dL (13.0-17.5) Hematocrit 35.0 % (39.0-53.0) 33.3 % (39.0-53.0) Mean Corpuscular Volume 93 fL (79-100) 93 fL (79-100) Mean Corpuscular Hemoglobin 31 pg (25-35) 31 pg (25-35) Mean Corpuscular Hemoglobin Concent 33 g/dL (31-37) 33 g/dL (31-37) Red Cell Distribution Width 13.0 % (11.5-14.5) 13.4 % (11.5-14.5) Platelet Count 129 x10^3/uL (140-400) 140 x10^3/uL (140-400) Neutrophils (%) (Auto) 91 % (31-73) 88 % (31-73) Lymphocytes (%) (Auto) 5 % (24-48) 4 % (24-48) Monocytes (%) (Auto) 4 % (0-9) 8 % (0-9) Eosinophils (%) (Auto) 0 % (0-3) 0 % (0-3) Basophils (%) (Auto) 0 % (0-3) 0 % (0-3) Neutrophils # (Auto) 7.0 x10^3/uL (1.8-7.7) 8.6 x10^3/uL (1.8-7.7) Lymphocytes # (Auto) 0.4 x10^3/uL (1.0-4.8) 0.4 x10^3/uL (1.0-4.8) Monocytes # (Auto) 0.3 x10^3/uL (0.0-1.1) 0.7 x10^3/uL (0.0-1.1) Eosinophils # (Auto) 0.0 x10^3/uL (0.0-0.7) 0.0 x10^3/uL (0.0-0.7) Basophils # (Auto) 0.0 x10^3/uL (0.0-0.2) 0.0 x10^3/uL (0.0-0.2) Total Bilirubin 0.8 mg/dL (0.2-1.0) Direct Bilirubin 0.6 mg/dL (0.0-0.2) Aspartate Amino Transf (AST/SGOT) 88 U/L (15-37) Alanine Aminotransferase (ALT/SGPT) 204 U/L (16-63) Alkaline Phosphatase 68 U/L (46-116) Total Protein 6.3 g/dL (6.4-8.2) Albumin 1.9 g/dL (3.4-5.0) Laboratory Tests Test 08/15/21 08:00 08/16/21 06:00 O2 Saturation 93 % (92-99) Arterial Blood pH 7.35 (7.35-7.45) Arterial Blood pCO2 at Patient Temp 71 mmHg (35-46) Arterial Blood pO2 at Patient Temp 72 mmHg (75-108) Arterial Blood HCO3 38 mmol/L (21-28) Arterial Blood Base Excess 10 mmol/L (-3-3) FiO2 100/vent White Blood Count 9.8 x10^3/uL (4.0-11.0) Red Blood Count 3.58 x10^6/uL (4.30-5.70) Hemoglobin 11.0 g/dL (13.0-17.5) Hematocrit 33.3 % (39.0-53.0) Mean Corpuscular Volume 93 fL (79-100) Mean Corpuscular Hemoglobin 31 pg (25-35) Mean Corpuscular Hemoglobin Concent 33 g/dL (31-37) Red Cell Distribution Width 13.4 % (11.5-14.5) Platelet Count 140 x10^3/uL (140-400) Neutrophils (%) (Auto) 88 % (31-73) Lymphocytes (%) (Auto) 4 % (24-48) Monocytes (%) (Auto) 8 % (0-9) Eosinophils (%) (Auto) 0 % (0-3) Basophils (%) (Auto) 0 % (0-3) Neutrophils # (Auto) 8.6 x10^3/uL (1.8-7.7) Lymphocytes # (Auto) 0.4 x10^3/uL (1.0-4.8) Monocytes # (Auto) 0.7 x10^3/uL (0.0-1.1) Eosinophils # (Auto) 0.0 x10^3/uL (0.0-0.7) Basophils # (Auto) 0.0 x10^3/uL (0.0-0.2) Total Bilirubin 0.8 mg/dL (0.2-1.0) Direct Bilirubin 0.6 mg/dL (0.0-0.2) Aspartate Amino Transf (AST/SGOT) 88 U/L (15-37) Alanine Aminotransferase (ALT/SGPT) 204 U/L (16-63) Alkaline Phosphatase 68 U/L (46-116) Total Protein 6.3 g/dL (6.4-8.2) Albumin 1.9 g/dL (3.4-5.0) Impression . 1. Acute hypoxic respiratory failure secondary to acute respiratory distress syndrome from COVID-19 viral pneumonia. Possible bacterial pneumonia 2. Abnormal CT chest with extensive and diffuse ground glass infiltrates throughout both lungs. No evidence of pulmonary embolism. No significant pleural effusion. 3. Increased CPK and troponin, possible rhabdomyolysis. 4. Increased liver function tests 5. Severe protein calorie malnutrition. Chest x-ray reviewed, improving Plan . Updated 08/16 Continue current support Titrate FiO2 if possible Chest x-ray reviewed Status post remdesivir Dexamethasone DVT GI prophylaxis Monitor LFTs ABG noted. Updated 08/15/2021 1. We will continue vent support assist control mode. setting reviewed Continue present oxygen at 100% FiO2 and PEEP increased to 12 titrate peep f io2 as tolerated cxr 08/14 no ptx Follow ABGs and make necessary adjustment based on ABGs. Okay with permissive hypercapnia. 2. Follow chest x-rays as needed. 3. Continue empiric antibiotic. 4. remdesivir. 5. dexamethasone. 6. DVT prophylaxis with subcutaneous heparin. 7. Patient remains critically ill. 8. LFTs have worsened. Will monitor for now. Likely related to Covid ? meds 9. enteral nutrition. Discussed with RN and RT. Chart reviewed imaging studies reviewed. BOLA MORENO MD Aug 16, 2021 07:22
--- NOTE | 2021-08-16 08:31 | RAD ---
XR CHEST 1V INDICATION: RF/COVID 112 COMPARISON STUDY: 08/14/2021. FINDINGS: Life Support Devices: Stable endotracheal tube, enteric tube, right IJ cyst venous catheter. Lungs: Normal lung volume. Improving but persistent bilateral perihilar and basilar opacities. Pleura: No pleural effusion or pneumothorax. Heart and Mediastinum: Stable cardiomediastinal silhouette and great vessels. Bones and Soft Tissues: Stable regional skeleton and soft tissues. IMPRESSION: 1. Stable life support devices. 2. Improving but persistent bilateral perihilar and basilar opacities. Electronically signed by: Osmani Bennett MD (08/16/2021 8:29 AM) [id number]
[2021-08-16] MEDS: ELECTROLYTE (ICU) PROTOCOL. MC SCH (09:00)
[2021-08-16 09:01] LABS: BASE EXCESS ABG 13 mmol/L (-3-3); HCO3 ABG 40 mmol/L (21-28); PO2 ABG 75 mmHg (75-108); SAT O2 ABG 95 % (92-99)
[2021-08-16 09:03] LABS: PCO2 ABG 63 mmHg (35-46)
[2021-08-16 09:04] LABS: FIO2 ABG 100
[2021-08-16 09:26] LABS: CALCIUM 8.2 mg/dL (8.5-10.1); CREATININE 0.7 mg/dL (0.7-1.3); GFR 125.5; POTASSIUM 4.9 mmol/L (3.5-5.1)
[2021-08-16] MEDS: MIDAZOLAM 100mg/100ml NS BAG 100 ML IV PRN ×2 (10:07→20:04)
[2021-08-16] MEDS: FAMOTIDINE 20 MG/2 ML VIAL IVP SCH ×2 (10:08→21:12)
[2021-08-16] MEDS: ASPIRIN CHEWABLE 81 MG TABLET. PO SCH (10:08)
[2021-08-16] MEDS: MULTIVITAMINS,THERAPEUTIC 5 ML ORAL LIQUID. PEG SCH (10:09)
[2021-08-16] MEDS: SENNOSIDES/DOCUSATE 8.6/50MG TABLET. PO SCH ×2 (10:09→21:00)
[2021-08-16] MEDS: DEXAMETHASONE SOD PHOS 4 MG/ML VIAL IVP SCH (10:35)
--- NOTE | 2021-08-16 11:35 | PDOC ---
[employer] PROGRESS NOTE Date of Service DOS: DATE: 08/16/21 TIME: 11:34 Chief Complaint Chief Complaint Acute hypoxic respiratory failure secondary to COVID-19 pneumonia NSTEMI Incarceration ARDS -Patient presented to emergency room due to worsening Covid symptoms: [facility] had been treated with prednisone and azithromycin -Required endotracheal intubation in emergency room, sedated when evaluated -Covid [address] -Consult to pulmonary -ICU admission -Patient with very elevated troponins as well -Awaiting EKG, starting heparin drip trend troponins -Wean oxygen as tolerated -Wean sedation as tolerated -Severe malnutrition History of Present Illness History of Present Illness Patient is a 41 year old male who presents from [facility] with respiratory distress. He tested positive for Covid. He has had symptoms for 1 week. He has had cough and shortness of breath. Per report he was diagnosed with a COVID-19 pneumonia. He was given azithromycin and prednisone for treatment. He continued to worsen and today showed signs of respiratory distress. When EMS arrived they applied 15 L nonrebreather and he was only able to maintain sats of 69%. Patient denies having chest pain. Speaking in one-word responses. But is alert and oriented. Patient denies any medical problems, chronic medications, or allergies 08/09/2021: Patient seen and evaluated. Afebrile, on vent with FiO2 100%, PEEP 10. Tested COVID-19 positive prior to admission yesterday. We will continue treatment with COVID-19 pneumonia with remdesivir (day 2/5), Decadron 6 mg daily to complete 10-day course, and empiric antibiotics. Will maintain patient on heparin infusion due to elevated troponins. Will follow cardiology recommendations. Appreciate pulmonology and cardiology input on the management of this patient. Critical care time 30 minutes spent reviewing charts, reviewing labs, reviewing imaging, and discussion with RN. 08/10/2021: Afebrile. On ventilator with FiO2 100%, PEEP 10. Highest troponin levels 2.038. Per cardiology, probably demand ischemia. Continue heparin infusion for 48 hours, and TTE once COVID-19 recovered. Continue remdesivir for full course. Continue Decadron and empiric antibiotics. Critical care time 30 minutes spent reviewing charts, reviewing labs, reviewing imaging, and discussion with RN. 08/11/2021: Afebrile. On vent with FiO2 100%, PEEP 10. Heparin been discontinued, per cardiology. Continue daily aspirin. TTE once COVID-19 recovered. Continue remdesivir day /5. Continue Decadron for full 10-day course and empiric antibiotics. Critical care time 30 minutes spent reviewing charts, reviewing labs, reviewing imaging, and discussion with RN. 08/12/2021: Afebrile; on vent with FiO2 100%, PEEP 10. Remdesivir day 03/31. LFTs improving, will check again tomorrow. Continue Decadron for full 10-day course and empiric antibiotics. Appreciate cardiology recommendations; continue daily aspirin and TTE once COVID-19 recovered. Critical care time 30 minutes spent reviewing charts, reviewing labs, reviewing imaging, and discussion with RN. 08/13/2021: Afebrile. On vent with FiO2 40%, PEEP 10. Completed remdesivir; continue to monitor for improving LFTs. Discussed with Dr. Welsh about treatment with Tocilizumab. Concerned however for severely elevated LFTs. Continue Decadron for full 10-day course; last day should be 08/19, then began slow taper. Empiric antibiotics. Appreciate cardiology recommendations; continue daily aspirin and TTE once COVID-19 recovered. Critical care time 30 minutes spent reviewing charts, reviewing labs, reviewing imaging, and discussion with RN. 08/14/2021: No significant changes overnight. Afebrile, on vent with FiO2 100%, PEEP 10. Not a candidate for Tocilizumab at this time due to significant elevated LFTs. Continue Decadron for full 10-day course, then slow taper. Continue empiric antibiotics. Will follow cardiology recommendations; continue daily aspirin and TTE once COVID-19 recovered. Critical care time 30 minutes spent reviewing charts, reviewing labs, reviewing imaging, and discussion with RN. 08/15/2021: Afebrile. On vent with FiO2 90%, PEEP 12. Decadron increased to 20 mg daily, with taper to begin on 08/19. Not a candidate for Tocilizumab at this time due to significant elevated LFTs; will continue to follow LFTs and readdress possible addition of Tocilizumab if less than 3x upper limit normal. Continue empiric antibiotics. Will follow cardiology recommendations; continue daily aspirin and TTE once COVID-19 recovered. Critical care time 30 minutes spent reviewing charts, reviewing labs, reviewing imaging, and discussion with RN. 08/16 Evaluated at bedside. No major clinical changes, remains on high ventilator settings. Continuing high-dose Decadron. Continue monitoring LFTs to see if patient will be tocilizumab candidate. Guarded prognosis plan of care discussed with bedside RN. Vitals/I&O Vitals/I&O: Vital Signs Date Time Temp Pulse Resp B/P (MAP) Pulse Ox O2 Delivery O2 Flow Rate FiO2 08/16/21 11:00 76 26 105/58 (74) 94 Ventilator 08/16/21 07:30 97.7 97.7 I & O 08/15/21 08/15/21 08/16/21 15:00 23:00 07:00 Intake Total 200 ml 938 ml 1776 ml Output Total 250 ml 1795 ml 725 ml Balance -50 ml -857 ml 1051 ml Physical Exam General: Other (sedated) Heart: Regular rate Lungs: Crackles Abdomen: Other (non-distended ) Extremities: No clubbing, No cyanosis Skin: No significant lesion Labs Labs: Laboratory Tests Test 08/16/21 06:00 08/16/21 09:00 White Blood Count 9.8 x10^3/uL (4.0-11.0) Red Blood Count 3.58 x10^6/uL (4.30-5.70) Hemoglobin 11.0 g/dL (13.0-17.5) Hematocrit 33.3 % (39.0-53.0) Mean Corpuscular Volume 93 fL (79-100) Mean Corpuscular Hemoglobin 31 pg (25-35) Mean Corpuscular Hemoglobin Concent 33 g/dL (31-37) Red Cell Distribution Width 13.4 % (11.5-14.5) Platelet Count 140 x10^3/uL (140-400) Neutrophils (%) (Auto) 88 % (31-73) Lymphocytes (%) (Auto) 4 % (24-48) Monocytes (%) (Auto) 8 % (0-9) Eosinophils (%) (Auto) 0 % (0-3) Basophils (%) (Auto) 0 % (0-3) Neutrophils # (Auto) 8.6 x10^3/uL (1.8-7.7) Lymphocytes # (Auto) 0.4 x10^3/uL (1.0-4.8) Monocytes # (Auto) 0.7 x10^3/uL (0.0-1.1) Eosinophils # (Auto) 0.0 x10^3/uL (0.0-0.7) Basophils # (Auto) 0.0 x10^3/uL (0.0-0.2) Sodium Level 139 mmol/L (136-145) Potassium Level 4.9 mmol/L (3.5-5.1) Chloride Level 98 mmol/L (98-107) Carbon Dioxide Level 39 mmol/L (21-32) Anion Gap 2 (6-14) Blood Urea Nitrogen 36 mg/dL (8-26) Creatinine 0.7 mg/dL (0.7-1.3) Estimated GFR (Cockcroft-Gault) 125.5 Glucose Level 139 mg/dL (70-99) Calcium Level 8.2 mg/dL (8.5-10.1) Total Bilirubin 0.8 mg/dL (0.2-1.0) Direct Bilirubin 0.6 mg/dL (0.0-0.2) Aspartate Amino Transf (AST/SGOT) 88 U/L (15-37) Alanine Aminotransferase (ALT/SGPT) 204 U/L (16-63) Alkaline Phosphatase 68 U/L (46-116) Total Protein 6.3 g/dL (6.4-8.2) Albumin 1.9 g/dL (3.4-5.0) O2 Saturation 95 % (92-99) Arterial Blood pH 7.42 (7.35-7.45) Arterial Blood pCO2 at Patient Temp 63 mmHg (35-46) Arterial Blood pO2 at Patient Temp 75 mmHg (75-108) Arterial Blood HCO3 40 mmol/L (21-28) Arterial Blood Base Excess 13 mmol/L (-3-3) FiO2 100 Assessment and Plan Assessmemt and Plan Problems Medical Problems: (1) Acute respiratory distress syndrome (ARDS) due to COVID-19 virus Status: Acute (2) Hyponatremia Status: Acute (3) NSTEMI (non-ST elevated myocardial infarction) Status: Acute (4) Pneumonia due to COVID-19 virus Status: Acute (5) Respiratory failure Status: Acute Comment Review of Relevant I have reviewed the following items vincent (where applicable) has been applied. Justifications for Admission Other Justification KYRA RUIZ MD Aug 16, 2021 11:35
[2021-08-17] VITALS (23 sets, daily range): BP systolic 114–174; BP diastolic 66–93
[2021-08-17] MEDS: NORCURON - VECURONIUM 50 MG in IV NORMAL SALINE 50ML 50 ML IV PRN ×4 (01:06→23:52)
[2021-08-17] MEDS: PROPOFOL 100 ML IV PRN ×5 (02:41→20:54)
[2021-08-17] MEDS: fentaNYL HIGH DOSE PCA 55 ML IV PRN ×2 (03:23→16:54)
[2021-08-17] MEDS: PIPERACILLIN/TAZOBACTAM 3.375 GM in IV NORMAL SALINE 50ML 50 ML IV SCH ×4 (05:28→23:55)
[2021-08-17 05:45] LABS: BASO % 0 % (0-3); EOS % 0 % (0-3); HEMATOCRIT 38.8 % (39.0-53.0); HEMOGLOBIN 12.8 g/dL (13.0-17.5); LYMPH # 0.7 x10^3/uL (1.0-4.8); LYMPH % 3 % (24-48); MEAN CORPUSCULAR HEMOGLOBIN 31 pg (25-35); MEAN CORPUSCULAR HGB CONC 33 g/dL (31-37); MEAN CORPUSCULAR VOLUME 94 fL (79-100); MONO # 1.5 x10^3/uL (0.0-1.1); MONO % 8 % (0-9); NEUT # 16.8 x10^3/uL (1.8-7.7); NEUT % 89 % (31-73); PLATELET COUNT 196 x10^3/uL (140-400); RED BLOOD COUNT 4.15 x10^6/uL (4.30-5.70); RED CELL DISTRIBUTION WIDTH 13.3 % (11.5-14.5)
[2021-08-17] MEDS: HEPARIN for SUB-Q USE 5,000 UNIT/ML VIAL. SQ SCH ×3 (06:00→22:00)
[2021-08-17] MEDS: MIDAZOLAM 100mg/100ml NS BAG 100 ML IV PRN ×2 (07:15→18:50)
[2021-08-17 07:17] LABS: % BANDS 11 % (0-9); % LYMPHS 4 % (24-48); % METAS 1 % (0-0); % MONOS 6 % (0-10); % SEGS 78 % (35-66)
[2021-08-17 07:19] LABS: PLT ESTIMATE ADEQUATE (ADEQUATE); TOXIC GRANULATION SLIGHT
[2021-08-17 07:20] LABS: POLYCHROMASIA OCCASIONAL
[2021-08-17 08:30] LABS: BASE EXCESS ABG 10 mmol/L (-3-3); HCO3 ABG 39 mmol/L (21-28); PO2 ABG 60 mmHg (75-108); SAT O2 ABG 88 % (92-99)
[2021-08-17 08:31] LABS: PCO2 ABG 78 mmHg (35-46)
[2021-08-17 08:32] LABS: FIO2 ABG 100
--- NOTE | 2021-08-17 08:56 | PDOC ---
PULMONARY PROGRESS NOTES DATE: 08/17/21 TIME: 08:56 Subjective Discussed with RN, no overnight event patient on assist control ventilation 100%, 12 of PEEP Sedated Vitals Vital Signs Date Time Temp Pulse Resp B/P (MAP) Pulse Ox O2 Delivery O2 Flow Rate FiO2 08/17/21 08:00 86 Ventilator 08/17/21 07:00 113 26 174/93 (120) 08/17/21 04:12 25.0 08/17/21 04:00 98.1 98.1 Lungs: Crackles Cardiovascular: S1, S2 Abdomen: Soft Extremities: Other (Some edema) Skin: Warm, No Rashes Labs Laboratory Tests Test 08/16/21 06:00 08/16/21 09:00 08/16/21 12:46 08/16/21 16:59 White Blood Count 9.8 x10^3/uL (4.0-11.0) Red Blood Count 3.58 x10^6/uL (4.30-5.70) Hemoglobin 11.0 g/dL (13.0-17.5) Hematocrit 33.3 % (39.0-53.0) Mean Corpuscular Volume 93 fL (79-100) Mean Corpuscular Hemoglobin 31 pg (25-35) Mean Corpuscular Hemoglobin Concent 33 g/dL (31-37) Red Cell Distribution Width 13.4 % (11.5-14.5) Platelet Count 140 x10^3/uL (140-400) Neutrophils (%) (Auto) 88 % (31-73) Lymphocytes (%) (Auto) 4 % (24-48) Monocytes (%) (Auto) 8 % (0-9) Eosinophils (%) (Auto) 0 % (0-3) Basophils (%) (Auto) 0 % (0-3) Neutrophils # (Auto) 8.6 x10^3/uL (1.8-7.7) Lymphocytes # (Auto) 0.4 x10^3/uL (1.0-4.8) Monocytes # (Auto) 0.7 x10^3/uL (0.0-1.1) Eosinophils # (Auto) 0.0 x10^3/uL (0.0-0.7) Basophils # (Auto) 0.0 x10^3/uL (0.0-0.2) Sodium Level 139 mmol/L (136-145) Potassium Level 4.9 mmol/L (3.5-5.1) Chloride Level 98 mmol/L (98-107) Carbon Dioxide Level 39 mmol/L (21-32) Anion Gap 2 (6-14) Blood Urea Nitrogen 36 mg/dL (8-26) Creatinine 0.7 mg/dL (0.7-1.3) Estimated GFR (Cockcroft-Gault) 125.5 Glucose Level 139 mg/dL (70-99) Calcium Level 8.2 mg/dL (8.5-10.1) Total Bilirubin 0.8 mg/dL (0.2-1.0) Direct Bilirubin 0.6 mg/dL (0.0-0.2) Aspartate Amino Transf (AST/SGOT) 88 U/L (15-37) Alanine Aminotransferase (ALT/SGPT) 204 U/L (16-63) Alkaline Phosphatase 68 U/L (46-116) Total Protein 6.3 g/dL (6.4-8.2) Albumin 1.9 g/dL (3.4-5.0) O2 Saturation 95 % (92-99) Arterial Blood pH 7.42 (7.35-7.45) Arterial Blood pCO2 at Patient Temp 63 mmHg (35-46) Arterial Blood pO2 at Patient Temp 75 mmHg (75-108) Arterial Blood HCO3 40 mmol/L (21-28) Arterial Blood Base Excess 13 mmol/L (-3-3) FiO2 100 Glucose (Fingerstick) 115 mg/dL (70-99) 155 mg/dL (70-99) Test 08/17/21 05:30 08/17/21 08:00 White Blood Count 19.0 x10^3/uL (4.0-11.0) Red Blood Count 4.15 x10^6/uL (4.30-5.70) Hemoglobin 12.8 g/dL (13.0-17.5) Hematocrit 38.8 % (39.0-53.0) Mean Corpuscular Volume 94 fL (79-100) Mean Corpuscular Hemoglobin 31 pg (25-35) Mean Corpuscular Hemoglobin Concent 33 g/dL (31-37) Red Cell Distribution Width 13.3 % (11.5-14.5) Platelet Count 196 x10^3/uL (140-400) Neutrophils (%) (Auto) 89 % (31-73) Lymphocytes (%) (Auto) 3 % (24-48) Monocytes (%) (Auto) 8 % (0-9) Eosinophils (%) (Auto) 0 % (0-3) Basophils (%) (Auto) 0 % (0-3) Neutrophils # (Auto) 16.8 x10^3/uL (1.8-7.7) Lymphocytes # (Auto) 0.7 x10^3/uL (1.0-4.8) Monocytes # (Auto) 1.5 x10^3/uL (0.0-1.1) Eosinophils # (Auto) 0.0 x10^3/uL (0.0-0.7) Basophils # (Auto) 0.0 x10^3/uL (0.0-0.2) Segmented Neutrophils % 78 % (35-66) Band Neutrophils % 11 % (0-9) Lymphocytes % 4 % (24-48) Monocytes % 6 % (0-10) Basophils % % (0-3) Metamyelocytes % 1 % (0-0) Toxic Granulation Slight Platelet Estimate Adequate (ADEQUATE) Polychromasia Occasional Basophilic Stippling Present O2 Saturation 88 % (92-99) Arterial Blood pH 7.32 (7.35-7.45) Arterial Blood pCO2 at Patient Temp 78 mmHg (35-46) Arterial Blood pO2 at Patient Temp 60 mmHg (75-108) Arterial Blood HCO3 39 mmol/L (21-28) Arterial Blood Base Excess 10 mmol/L (-3-3) FiO2 100 Laboratory Tests Test 08/16/21 09:00 08/16/21 12:46 08/16/21 16:59 08/17/21 05:30 O2 Saturation 95 % (92-99) Arterial Blood pH 7.42 (7.35-7.45) Arterial Blood pCO2 at Patient Temp 63 mmHg (35-46) Arterial Blood pO2 at Patient Temp 75 mmHg (75-108) Arterial Blood HCO3 40 mmol/L (21-28) Arterial Blood Base Excess 13 mmol/L (-3-3) FiO2 100 Glucose (Fingerstick) 115 mg/dL (70-99) 155 mg/dL (70-99) White Blood Count 19.0 x10^3/uL (4.0-11.0) Red Blood Count 4.15 x10^6/uL (4.30-5.70) Hemoglobin 12.8 g/dL (13.0-17.5) Hematocrit 38.8 % (39.0-53.0) Mean Corpuscular Volume 94 fL (79-100) Mean Corpuscular Hemoglobin 31 pg (25-35) Mean Corpuscular Hemoglobin Concent 33 g/dL (31-37) Red Cell Distribution Width 13.3 % (11.5-14.5) Platelet Count 196 x10^3/uL (140-400) Neutrophils (%) (Auto) 89 % (31-73) Lymphocytes (%) (Auto) 3 % (24-48) Monocytes (%) (Auto) 8 % (0-9) Eosinophils (%) (Auto) 0 % (0-3) Basophils (%) (Auto) 0 % (0-3) Neutrophils # (Auto) 16.8 x10^3/uL (1.8-7.7) Lymphocytes # (Auto) 0.7 x10^3/uL (1.0-4.8) Monocytes # (Auto) 1.5 x10^3/uL (0.0-1.1) Eosinophils # (Auto) 0.0 x10^3/uL (0.0-0.7) Basophils # (Auto) 0.0 x10^3/uL (0.0-0.2) Segmented Neutrophils % 78 % (35-66) Band Neutrophils % 11 % (0-9) Lymphocytes % 4 % (24-48) Monocytes % 6 % (0-10) Basophils % % (0-3) Metamyelocytes % 1 % (0-0) Toxic Granulation Slight Platelet Estimate Adequate (ADEQUATE) Polychromasia Occasional Basophilic Stippling Present Test 08/17/21 08:00 O2 Saturation 88 % (92-99) Arterial Blood pH 7.32 (7.35-7.45) Arterial Blood pCO2 at Patient Temp 78 mmHg (35-46) Arterial Blood pO2 at Patient Temp 60 mmHg (75-108) Arterial Blood HCO3 39 mmol/L (21-28) Arterial Blood Base Excess 10 mmol/L (-3-3) FiO2 100 Impression . 1. Acute hypoxic respiratory failure secondary to acute respiratory distress syndrome from COVID-19 viral pneumonia. Possible bacterial pneumonia 2. Abnormal CT chest with extensive and diffuse ground glass infiltrates throughout both lungs. No evidence of pulmonary embolism. No significant pleural effusion. 3. Increased CPK and troponin, possible rhabdomyolysis. 4. Increased liver function tests 5. Severe protein calorie malnutrition. Plan . Updated 08/17 I had a lengthy discussion with the father, both the father and mother have had discussion, they wished their son to be a DNR,. RN the call was on the telephone conference call. She confirm DNR status requested by parents. We will continue current support, Prognosis is poor, patient not expected to survive Continue DVT GI prophylaxis updated 08/16 Continue current support Titrate FiO2 if possible Chest x-ray reviewed Status post remdesivir Dexamethasone DVT GI prophylaxis Monitor LFTs ABG noted. Updated 08/15/2021 1. We will continue vent support assist control mode. setting reviewed Continue present oxygen at 100% FiO2 and PEEP increased to 12 titrate peep fio2 as tolerated cxr 08/14 no ptx Follow ABGs and make necessary adjustment based on ABGs. Okay with permissive hypercapnia. 2. Follow chest x-rays as needed. 3. Continue empiric antibiotic. 4. remdesivir. 5. dexamethasone. 6. DVT prophylaxis with subcutaneous heparin. 7. Patient remains critically ill. 8. LFTs have worsened. Will monitor for now. Likely related to Covid ? meds 9. enteral nutrition. Discussed with RN and RT. Chart reviewed imaging studies reviewed. BOLA MORENO MD Aug 17, 2021 08:56
[2021-08-17] MEDS: ELECTROLYTE (ICU) PROTOCOL. MC SCH (09:00)
[2021-08-17] MEDS: ASPIRIN CHEWABLE 81 MG TABLET. PO SCH (09:40)
[2021-08-17] MEDS: SENNOSIDES/DOCUSATE 8.6/50MG TABLET. PO SCH ×2 (09:40→20:53)
[2021-08-17] MEDS: MULTIVITAMINS,THERAPEUTIC 5 ML ORAL LIQUID. PEG SCH (09:40)
[2021-08-17] MEDS: FAMOTIDINE 20 MG/2 ML VIAL IVP SCH ×2 (09:40→20:53)
[2021-08-17] MEDS: DEXAMETHASONE SOD PHOS 4 MG/ML VIAL IVP SCH (09:40)
[2021-08-17] MEDS ORDERED: MINERAL OIL/PETROLATUM,WHITE OPHTH OINT 3.5GM TUBE. OU PRN (10:15)
[2021-08-17] MEDS: DEXMEDETOMIDINE 400 MCG in IV NORMAL SALINE 100ML 96 ML IV PRN ×3 (10:21→20:53)
--- NOTE | 2021-08-17 11:46 | PDOC ---
[employer] PROGRESS NOTE Date of Service DOS: DATE: 08/17/21 TIME: 11:44 Chief Complaint Chief Complaint Acute hypoxic respiratory failure secondary to COVID-19 pneumonia NSTEMI Incarceration ARDS -Patient presented to emergency room due to worsening Covid symptoms: Was diagnosed at his retirement had been treated with prednisone and azithromycin -Required endotracheal intubation in emergency room, sedated when evaluated -Covid [address] -Consult to pulmonary -ICU admission -Patient with very elevated troponins as well -Awaiting EKG, starting heparin drip trend troponins -Wean oxygen as tolerated -Wean sedation as tolerated -Severe malnutrition History of Present Illness History of Present Illness Patient is a 41 year old male who presents from [facility] with respiratory distress. He tested positive for Covid. He has had symptoms for 1 week. He has had cough and shortness of breath. Per report he was diagnosed with a COVID-19 pneumonia. He was given azithromycin and prednisone for treatment. He continued to worsen and today showed signs of respiratory distress. When EMS arrived they applied 15 L nonrebreather and he was only able to maintain sats of 69%. Patient denies having chest pain. Speaking in one-word responses. But is alert and oriented. Patient denies any medical problems, chronic medications, or allergies 08/09/2021: Patient seen and evaluated. Afebrile, on vent with FiO2 100%, PEEP 10. Tested COVID-19 positive prior to admission yesterday. We will continue treatment with COVID-19 pneumonia with remdesivir (day 2/5), Decadron 6 mg daily to complete 10-day course, and empiric antibiotics. Will maintain patient on heparin infusion due to elevated troponins. Will follow cardiology recommendations. Appreciate pulmonology and cardiology input on the management of this patient. Critical care time 30 minutes spent reviewing charts, reviewing labs, reviewing imaging, and discussion with RN. 08/10/2021: Afebrile. On ventilator with FiO2 100%, PEEP 10. Highest troponin levels 2.038. Per cardiology, probably demand ischemia. Continue heparin infusion for 48 hours, and TTE once COVID-19 recovered. Continue remdesivir for full course. Continue Decadron and empiric antibiotics. Critical care time 30 minutes spent reviewing charts, reviewing labs, reviewing imaging, and discussion with RN. 08/11/2021: Afebrile. On vent with FiO2 100%, PEEP 10. Heparin been discontinued, per cardiology. Continue daily aspirin. TTE once COVID-19 recovered. Continue remdesivir day /5. Continue Decadron for full 10-day course and empiric antibiotics. Critical care time 30 minutes spent reviewing charts, reviewing labs, reviewing imaging, and discussion with RN. 08/12/2021: Afebrile; on vent with FiO2 100%, PEEP 10. Remdesivir day 03/31. LFTs improving, will check again tomorrow. Continue Decadron for full 10-day course and empiric antibiotics. Appreciate cardiology recommendations; continue daily aspirin and TTE once COVID-19 recovered. Critical care time 30 minutes spent reviewing charts, reviewing labs, reviewing imaging, and discussion with RN. 08/13/2021: Afebrile. On vent with FiO2 40%, PEEP 10. Completed remdesivir; continue to monitor for improving LFTs. Discussed with Dr. Welsh about treatment with Tocilizumab. Concerned however for severely elevated LFTs. Continue Decadron for full 10-day course; last day should be 08/19, then began slow taper. Empiric antibiotics. Appreciate cardiology recommendations; continue daily aspirin and TTE once COVID-19 recovered. Critical care time 30 minutes spent reviewing charts, reviewing labs, reviewing imaging, and discussion with RN. 08/14/2021: No significant changes overnight. Afebrile, on vent with FiO2 100%, PEEP 10. Not a candidate for Tocilizumab at this time due to significant elevated LFTs. Continue Decadron for full 10-day course, then slow taper. Continue empiric antibiotics. Will follow cardiology recommendations; continue daily aspirin and TTE once COVID-19 recovered. Critical care time 30 minutes spent reviewing charts, reviewing labs, reviewing imaging, and discussion with RN. 08/15/2021: Afebrile. On vent with FiO2 90%, PEEP 12. Decadron increased to 20 mg daily, with taper to begin on 08/19. Not a candidate for Tocilizumab at this time due to significant elevated LFTs; will continue to follow LFTs and readdress possible addition of Tocilizumab if less than 3x upper limit normal. Continue empiric antibiotics. Will follow cardiology recommendations; continue daily aspirin and TTE once COVID-19 recovered. Critical care time 30 minutes spent reviewing charts, reviewing labs, reviewing imaging, and discussion with RN. 08/16 Evaluated at bedside. No major clinical changes, remains on high ventilator settings. Continuing high-dose Decadron. Continue monitoring LFTs to see if patient will be tocilizumab candidate. Guarded prognosis plan of care discussed with bedside RN. 08/17 Patient evaluated at bedside. Team pulmonary Dr. Abdalla Contacted family today who have elected to make patient DNR/DNI. Suspect possible hospice/[facility] in the coming days. Otherwise continue current plan. Poor prognosis. Vitals/I&O Vitals/I&O: Vital Signs Date Time Temp Pulse Resp B/P (MAP) Pulse Ox O2 Delivery O2 Flow Rate FiO2 08/17/21 11:23 81 Ventilator 08/17/21 10:00 118 26 173/91 (118) 08/17/21 08:00 99.7 99.7 08/17/21 04:12 25.0 I & O 08/16/21 08/16/21 08/17/21 15:00 23:00 07:00 Intake Total 758 ml 822.61 ml 1692 ml Output Total 550 ml 650 ml 575 ml Balance 208 ml 172.61 ml 1117 ml Physical Exam General: Other (sedated) Heart: Regular rate, Normal S1, Normal S2 Lungs: Crackles Abdomen: Other (non-distended ) Extremities: No clubbing, No cyanosis Skin: No significant lesion Labs Labs: Laboratory Tests Test 08/16/21 12:46 08/16/21 16:59 08/17/21 05:30 08/17/21 08:00 Glucose (Fingerstick) 115 mg/dL (70-99) 155 mg/dL (70-99) White Blood Count 19.0 x10^3/uL (4.0-11.0) Red Blood Count 4.15 x10^6/uL (4.30-5.70) Hemoglobin 12.8 g/dL (13.0-17.5) Hematocrit 38.8 % (39.0-53.0) Mean Corpuscular Volume 94 fL (79-100) Mean Corpuscular Hemoglobin 31 pg (25-35) Mean Corpuscular Hemoglobin Concent 33 g/dL (31-37) Red Cell Distribution Width 13.3 % (11.5-14.5) Platelet Count 196 x10^3/uL (140-400) Neutrophils (%) (Auto) 89 % (31-73) Lymphocytes (%) (Auto) 3 % (24-48) Monocytes (%) (Auto) 8 % (0-9) Eosinophils (%) (Auto) 0 % (0-3) Basophils (%) (Auto) 0 % (0-3) Neutrophils # (Auto) 16.8 x10^3/uL (1.8-7.7) Lymphocytes # (Auto) 0.7 x10^3/uL (1.0-4.8) Monocytes # (Auto) 1.5 x10^3/uL (0.0-1.1) Eosinophils # (Auto) 0.0 x10^3/uL (0.0-0.7) Basophils # (Auto) 0.0 x10^3/uL (0.0-0.2) Segmented Neutrophils % 78 % (35-66) Band Neutrophils % 11 % (0-9) Lymphocytes % 4 % (24-48) Monocytes % 6 % (0-10) Basophils % % (0-3) Metamyelocytes % 1 % (0-0) Toxic Granulation Slight Platelet Estimate Adequate (ADEQUATE) Polychromasia Occasional Basophilic Stippling Present O2 Saturation 88 % (92-99) Arterial Blood pH 7.32 (7.35-7.45) Arterial Blood pCO2 at Patient Temp 78 mmHg (35-46) Arterial Blood pO2 at Patient Temp 60 mmHg (75-108) Arterial Blood HCO3 39 mmol/L (21-28) Arterial Blood Base Excess 10 mmol/L (-3-3) FiO2 100 Assessment and Plan Assessmemt and Plan Problems Medical Problems: (1) Acute respiratory distress syndrome (ARDS) due to COVID-19 virus Status: Acute (2) Hyponatremia Status: Acute (3) NSTEMI (non-ST elevated myocardial infarction) Status: Acute (4) Pneumonia due to COVID-19 virus Status: Acute (5) Respiratory failure Status: Acute Comment Review of Relevant I have reviewed the following items vincent (where applicable) has been applied. Medications: Current Medications Medications (Trade) Dose Ordered Sig/Magalis Route PRN Reason Start Time Stop Time Status Last Admin Dose Admin Multi-Ingred Cream/Lotion/Oil/ Oint (Artificial Tears Eye Ointment) 1 pravin PRN Q1HR PRN OU DRY EYE 08/17/21 10:15 08/17/21 10:21 Dexmedetomidine HCl 400 mcg/ Sodium Chloride 100 ml @ 0 mls/hr CONT PRN IV PER PROTOCOL 08/17/21 10:15 08/17/21 10:21 Justifications for Admission Other Justification KYRA RUIZ MD Aug 17, 2021 11:46
[2021-08-18] VITALS (23 sets, daily range): BP systolic 53–170; BP diastolic 31–86
[2021-08-18] MEDS: DEXMEDETOMIDINE 400 MCG in IV NORMAL SALINE 100ML 96 ML IV PRN ×4 (01:20→20:25)
[2021-08-18] MEDS: PROPOFOL 100 ML IV PRN ×4 (01:21→16:42)
[2021-08-18 05:31] LABS: CALCIUM 8.2 mg/dL (8.5-10.1); CREATININE 0.7 mg/dL (0.7-1.3); GFR 125.5; POTASSIUM 5.2 mmol/L (3.5-5.1)
[2021-08-18] MEDS: NORCURON - VECURONIUM 50 MG in IV NORMAL SALINE 50ML 50 ML IV PRN ×3 (05:31→20:26)
[2021-08-18] MEDS: MIDAZOLAM 100mg/100ml NS BAG 100 ML IV PRN ×2 (05:31→16:41)
[2021-08-18] MEDS: HEPARIN for SUB-Q USE 5,000 UNIT/ML VIAL. SQ SCH ×3 (05:32→21:01)
[2021-08-18] MEDS: PIPERACILLIN/TAZOBACTAM 3.375 GM in IV NORMAL SALINE 50ML 50 ML IV SCH ×3 (05:33→17:33)
[2021-08-18] MEDS: fentaNYL HIGH DOSE PCA 55 ML IV PRN ×2 (05:34→19:22)
--- NOTE | 2021-08-18 08:08 | RAD ---
XR CHEST 1V INDICATION: RF/COVID 112 COMPARISON STUDY: 08/16/2021. FINDINGS: Life Support Devices: Stable endotracheal tube, enteric tube, right IJ central venous catheter. Lungs: Normal lung volume. Bilateral perihilar and basilar opacities, slightly progressed. Pleura: No pleural effusion or pneumothorax. Heart and Mediastinum: Stable cardiomediastinal silhouette and great vessels. IMPRESSION: 1. Stable left support devices. 2. Bilateral perihilar and basilar opacities, slightly progressed. Electronically signed by: Osmani Bennett MD (08/18/2021 8:06 AM) [id number]
[2021-08-18] MEDS: ASPIRIN CHEWABLE 81 MG TABLET. PO SCH (08:24)
[2021-08-18] MEDS: MULTIVITAMINS,THERAPEUTIC 5 ML ORAL LIQUID. PEG SCH (08:25)
[2021-08-18] MEDS: FAMOTIDINE 20 MG/2 ML VIAL IVP SCH ×2 (08:25→21:01)
[2021-08-18] MEDS: SENNOSIDES/DOCUSATE 8.6/50MG TABLET. PO SCH ×2 (08:25→21:00)
[2021-08-18] MEDS: DEXAMETHASONE SOD PHOS 4 MG/ML VIAL IVP SCH (08:25)
[2021-08-18 08:36] LABS: BASE EXCESS ABG 11 mmol/L (-3-3); HCO3 ABG 38 mmol/L (21-28); PO2 ABG 63 mmHg (75-108); SAT O2 ABG 91 % (92-99)
[2021-08-18 08:38] LABS: FIO2 ABG 100; PCO2 ABG 65 mmHg (35-46)
[2021-08-18] MEDS: ACETAMINOPHEN 325 MG TABLET. PO PRN ×2 (08:51→13:34)
[2021-08-18] MEDS: ELECTROLYTE (ICU) PROTOCOL. MC SCH (09:00)
--- NOTE | 2021-08-18 09:17 | PDOC ---
PULMONARY PROGRESS NOTES DATE: 08/18/21 TIME: 09:17 Subjective Patient sedated, 100% FiO2, 12 of PEEP No new events Vitals Vital Signs Date Time Temp Pulse Resp B/P (MAP) Pulse Ox O2 Delivery O2 Flow Rate FiO2 08/18/21 08:00 92 Ventilator 08/18/21 06:00 108 26 120/74 (89) 08/18/21 06:00 25.0 08/18/21 01:00 98.1 98.1 Lungs: Crackles Cardiovascular: S1, S2 Abdomen: Soft Extremities: Other (Some edema) Skin: Warm, No Rashes Labs Laboratory Tests Test 08/16/21 12:46 08/16/21 16:59 08/17/21 05:30 08/17/21 08:00 Glucose (Fingerstick) 115 mg/dL (70-99) 155 mg/dL (70-99) White Blood Count 19.0 x10^3/uL (4.0-11.0) Red Blood Count 4.15 x10^6/uL (4.30-5.70) Hemoglobin 12.8 g/dL (13.0-17.5) Hematocrit 38.8 % (39.0-53.0) Mean Corpuscular Volume 94 fL (79-100) Mean Corpuscular Hemoglobin 31 pg (25-35) Mean Corpuscular Hemoglobin Concent 33 g/dL (31-37) Red Cell Distribution Width 13.3 % (11.5-14.5) Platelet Count 196 x10^3/uL (140-400) Neutrophils (%) (Auto) 89 % (31-73) Lymphocytes (%) (Auto) 3 % (24-48) Monocytes (%) (Auto) 8 % (0-9) Eosinophils (%) (Auto) 0 % (0-3) Basophils (%) (Auto) 0 % (0-3) Neutrophils # (Auto) 16.8 x10^3/uL (1.8-7.7) Lymphocytes # (Auto) 0.7 x10^3/uL (1.0-4.8) Monocytes # (Auto) 1.5 x10^3/uL (0.0-1.1) Eosinophils # (Auto) 0.0 x10^3/uL (0.0-0.7) Basophils # (Auto) 0.0 x10^3/uL (0.0-0.2) Segmented Neutrophils % 78 % (35-66) Band Neutrophils % 11 % (0-9) Lymphocytes % 4 % (24-48) Monocytes % 6 % (0-10) Basophils % % (0-3) Metamyelocytes % 1 % (0-0) Toxic Granulation Slight Platelet Estimate Adequate (ADEQUATE) Polychromasia Occasional Basophilic Stippling Present O2 Saturation 88 % (92-99) Arterial Blood pH 7.32 (7.35-7.45) Arterial Blood pCO2 at Patient Temp 78 mmHg (35-46) Arterial Blood pO2 at Patient Temp 60 mmHg (75-108) Arterial Blood HCO3 39 mmol/L (21-28) Arterial Blood Base Excess 10 mmol/L (-3-3) FiO2 100 Test 08/18/21 05:15 08/18/21 08:00 Sodium Level 141 mmol/L (136-145) Potassium Level 5.2 mmol/L (3.5-5.1) Chloride Level 98 mmol/L (98-107) Carbon Dioxide Level 42 mmol/L (21-32) Anion Gap 1 (6-14) Blood Urea Nitrogen 29 mg/dL (8-26) Creatinine 0.7 mg/dL (0.7-1.3) Estimated GFR (Cockcroft-Gault) 125.5 Glucose Level 125 mg/dL (70-99) Calcium Level 8.2 mg/dL (8.5-10.1) O2 Saturation 91 % (92-99) Arterial Blood pH 7.39 (7.35-7.45) Arterial Blood pCO2 at Patient Temp 65 mmHg (35-46) Arterial Blood pO2 at Patient Temp 63 mmHg (75-108) Arterial Blood HCO3 38 mmol/L (21-28) Arterial Blood Base Excess 11 mmol/L (-3-3) FiO2 100 Laboratory Tests Test 08/18/21 05:15 08/18/21 08:00 Sodium Level 141 mmol/L (136-145) Potassium Level 5.2 mmol/L (3.5-5.1) Chloride Level 98 mmol/L (98-107) Carbon Dioxide Level 42 mmol/L (21-32) Anion Gap 1 (6-14) Blood Urea Nitrogen 29 mg/dL (8-26) Creatinine 0.7 mg/dL (0.7-1.3) Estimated GFR (Cockcroft-Gault) 125.5 Glucose Level 125 mg/dL (70-99) Calcium Level 8.2 mg/dL (8.5-10.1) O2 Saturation 91 % (92-99) Arterial Blood pH 7.39 (7.35-7.45) Arterial Blood pCO2 at Patient Temp 65 mmHg (35-46) Arterial Blood pO2 at Patient Temp 63 mmHg (75-108) Arterial Blood HCO3 38 mmol/L (21-28) Arterial Blood Base Excess 11 mmol/L (-3-3) FiO2 100 Impression . 1. Acute hypoxic respiratory failure secondary to acute respiratory distress syndrome from COVID-19 viral pneumonia. Possible bacterial pneumonia 2. Abnormal CT chest with extensive and diffuse ground glass infiltrates throughout both lungs. No evidence of pulmonary embolism. No significant pleural effusion. 3. Increased CPK and troponin, possible rhabdomyolysis. 4. Increased liver function tests 5. Severe protein calorie malnutrition. Plan . Updated 08/18 Continue current support ABG noted, PCO2 has improved Chest x-ray reviewed DVT GI prophylaxis Nutritional support Status post remdesivir Dexamethasone Updated 08/17 I had a lengthy discussion with the father, both the father and mother have had discussion, they wished their son to be a DNR,. RN the call was on the telephone conference call. She confirm DNR status requested by parents. We will continue current support, Prognosis is poor, patient not expected to survive Continue DVT GI prophylaxis updated 08/16 Continue current support Titrate FiO2 if possible Chest x-ray reviewed Status post remdesivir Dexamethasone DVT GI prophylaxis Monitor LFTs ABG noted. BOLA MORENO MD Aug 18, 2021 09:17
--- NOTE | 2021-08-18 11:06 | PDOC ---
[facility] PROGRESS NOTE Date of Service DOS: DATE: 08/18/21 TIME: 11:06 Chief Complaint Chief Complaint Acute hypoxic respiratory failure secondary to COVID-19 pneumonia NSTEMI Incarceration ARDS -Patient presented to emergency room due to worsening Covid symptoms: [facility] had been treated with prednisone and azithromycin -Required endotracheal intubation in emergency room, sedated when evaluated -Covid [address] -Consult to pulmonary -ICU admission -Patient with very elevated troponins as well -Awaiting EKG, starting heparin drip trend troponins -Wean oxygen as tolerated -Wean sedation as tolerated -Severe malnutrition History of Present Illness History of Present Illness Patient is a 41 year old male who presents from [facility] with respiratory distress. He tested positive for Covid. He has had symptoms for 1 week. He has had cough and shortness of breath. Per report he was diagnosed with a COVID-19 pneumonia. He was given azithromycin and prednisone for treatment. He continued to worsen and today showed signs of respiratory distress. When EMS arrived they applied 15 L nonrebreather and he was only able to maintain sats of 69%. Patient denies having chest pain. Speaking in one-word responses. But is alert and oriented. Patient denies any medical problems, chronic medications, or allergies 08/09/2021: Patient seen and evaluated. Afebrile, on vent with FiO2 100%, PEEP 10. Tested COVID-19 positive prior to admission yesterday. We will continue treatment with COVID-19 pneumonia with remdesivir (day 2/5), Decadron 6 mg daily to complete 10-day course, and empiric antibiotics. Will maintain patient on heparin infusion due to elevated troponins. Will follow cardiology recommendations. Appreciate pulmonology and cardiology input on the management of this patient. Critical care time 30 minutes spent reviewing charts, reviewing labs, reviewing imaging, and discussion with RN. 08/10/2021: Afebrile. On ventilator with FiO2 100%, PEEP 10. Highest troponin levels 2.038. Per cardiology, probably demand ischemia. Continue heparin infusion for 48 hours, and TTE once COVID-19 recovered. Continue remdesivir for full course. Continue Decadron and empiric antibiotics. Critical care time 30 minutes spent reviewing charts, reviewing labs, reviewing imaging, and discussion with RN. 08/11/2021: Afebrile. On vent with FiO2 100%, PEEP 10. Heparin been discontinued, per cardiology. Continue daily aspirin. TTE once COVID-19 recovered. Continue remdesivir day /5. Continue Decadron for full 10-day course and empiric antibiotics. Critical care time 30 minutes spent reviewing charts, reviewing labs, reviewing imaging, and discussion with RN. 08/12/2021: Afebrile; on vent with FiO2 100%, PEEP 10. Remdesivir day 03/31. LFTs improving, will check again tomorrow. Continue Decadron for full 10-day course and empiric antibiotics. Appreciate cardiology recommendations; continue daily aspirin and TTE once COVID-19 recovered. Critical care time 30 minutes spent reviewing charts, reviewing labs, reviewing imaging, and discussion with RN. 08/13/2021: Afebrile. On vent with FiO2 40%, PEEP 10. Completed remdesivir; continue to monitor for improving LFTs. Discussed with Dr. Welsh about treatment with Tocilizumab. Concerned however for severely elevated LFTs. Continue Decadron for full 10-day course; last day should be 08/19, then began slow taper. Empiric antibiotics. Appreciate cardiology recommendations; continue daily aspirin and TTE once COVID-19 recovered. Critical care time 30 minutes spent reviewing charts, reviewing labs, reviewing imaging, and discussion with RN. 08/14/2021: No significant changes overnight. Afebrile, on vent with FiO2 100%, PEEP 10. Not a candidate for Tocilizumab at this time due to significant elevated LFTs. Continue Decadron for full 10-day course, then slow taper. Continue empiric antibiotics. Will follow cardiology recommendations; continue daily aspirin and TTE once COVID-19 recovered. Critical care time 30 minutes spent reviewing charts, reviewing labs, reviewing imaging, and discussion with RN. 08/15/2021: Afebrile. On vent with FiO2 90%, PEEP 12. Decadron increased to 20 mg daily, with taper to begin on 08/19. Not a candidate for Tocilizumab at this time due to significant elevated LFTs; will continue to follow LFTs and readdress possible addition of Tocilizumab if less than 3x upper limit normal. Continue empiric antibiotics. Will follow cardiology recommendations; continue daily aspirin and TTE once COVID-19 recovered. Critical care time 30 minutes spent reviewing charts, reviewing labs, reviewing imaging, and discussion with RN. 08/16 Evaluated at bedside. No major clinical changes, remains on high ventilator settings. Continuing high-dose Decadron. Continue monitoring LFTs to see if patient will be tocilizumab candidate. Guarded prognosis plan of care discussed with bedside RN. 08/17 Patient evaluated at bedside. Team pulmonary Dr. Abdalla Contacted family today who have elected to make patient DNR/DNI. 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 Otherwise continue current plan. Poor prognosis. 08/18 No major clinical changes at this point. Patient evaluated at bedside. Continue supportive care. Otherwise no changes Vitals/I&O Vitals/I&O: Vital Signs Date Time Temp Pulse Resp B/P (MAP) Pulse Ox O2 Delivery O2 Flow Rate FiO2 08/18/21 09:47 89 Ventilator 08/18/21 06:00 108 26 120/74 (89) 08/18/21 06:00 25.0 08/18/21 01:00 98.1 98.1 I & O 08/17/21 08/17/21 08/18/21 14:59 22:59 06:59 Intake Total 1162 ml 1314 ml 1466 ml Output Total 625 ml 965 ml 275 ml Balance 537 ml 349 ml 1191 ml Physical Exam General: Other (sedated) Heart: Regular rate, Normal S1, Normal S2 Lungs: Crackles Abdomen: Other (non-distended ) Extremities: No clubbing, No cyanosis Skin: No significant lesion Labs Labs: Laboratory Tests Test 08/18/21 05:15 08/18/21 08:00 Sodium Level 141 mmol/L (136-145) Potassium Level 5.2 mmol/L (3.5-5.1) Chloride Level 98 mmol/L (98-107) Carbon Dioxide Level 42 mmol/L (21-32) Anion Gap 1 (6-14) Blood Urea Nitrogen 29 mg/dL (8-26) Creatinine 0.7 mg/dL (0.7-1.3) Estimated GFR (Cockcroft-Gault) 125.5 Glucose Level 125 mg/dL (70-99) Calcium Level 8.2 mg/dL (8.5-10.1) O2 Saturation 91 % (92-99) Arterial Blood pH 7.39 (7.35-7.45) Arterial Blood pCO2 at Patient Temp 65 mmHg (35-46) Arterial Blood pO2 at Patient Temp 63 mmHg (75-108) Arterial Blood HCO3 38 mmol/L (21-28) Arterial Blood Base Excess 11 mmol/L (-3-3) FiO2 100 Assessment and Plan Assessmemt and Plan Problems Medical Problems: (1) Acute respiratory distress syndrome (ARDS) due to COVID-19 virus Status: Acute (2) Hyponatremia Status: Acute (3) NSTEMI (non-ST elevated myocardial infarction) Status: Acute (4) Pneumonia due to COVID-19 virus Status: Acute (5) Respiratory failure Status: Acute Comment Review of Relevant I have reviewed the following items vincent (where applicable) has been applied. Justifications for Admission Other Justification KYRA RUIZ MD Aug 18, 2021 11:06
[2021-08-18] MEDS: NOREPINEPHRINE VIAL 8 MG in IV DEXTROSE 5% 250 ML IV PRN (21:13)
--- NOTE | 2021-08-18 22:00 | NUR ---
2142- start of shift patient had a BM. Patient turned. O2 sats dropped to the 70's. bolus of propofol given. noted a decrease in BP. Levophed started. At 2142 noted time of . Patient is a no code. [place] service notified
--- NOTE | 2021-08-19 00:26 | NUR ---
called Osei Paniagua with the [place] service. body to be jamgue. Osei states family has been notified
[2021-08-19] MEDS ORDERED: DEXAMETHASONE SOD PHOS 4 MG/ML VIAL IVP SCH (09:00)
--- NOTE | 2021-08-19 09:47 | PDOC3 ---
[facility]-Discharge Summary Date of Admission: Date of Admission: Aug 08, 2021 Date of Discharge: Date of Discharge: Aug 18, 2021 Admission Diagnosis: Admitting Diagnosis: COVID Discharge Diagnosis: Discharge Diagnosis: Same Consults: Consults: Pulm Hospital Course: Hospital Course: Chief Complaint Acute hypoxic respiratory failure secondary to COVID-19 pneumonia NSTEMI Incarceration ARDS -Patient presented to emergency room due to worsening Covid symptoms: [facility] had been treated with prednisone and azithromycin -Required endotracheal intubation in emergency room, sedated when evaluated -Covid [address] -Consult to pulmonary -ICU admission -Patient with very elevated troponins as well -Awaiting EKG, starting heparin drip trend troponins -Wean oxygen as tolerated -Wean sedation as tolerated -Severe malnutrition History of Present Illness History of Present Illness Patient is a 41 year old male who presents from [facility] with respiratory distress. He tested positive for Covid. He has had symptoms for 1 week. He has had cough and shortness of breath. Per report he was diagnosed with a COVID-19 pneumonia. He was given azithromycin and prednisone for treatment. He continued to worsen and today showed signs of respiratory distress. When EMS arrived they applied 15 L nonrebreather and he was only able to maintain sats of 69%. Patient denies having chest pain. Speaking in one-word responses. But is alert and oriented. Patient denies any medical problems, chronic medications, or allergies 08/09/2021: Patient seen and evaluated. Afebrile, on vent with FiO2 100%, PEEP 10. Tested COVID-19 positive prior to admission yesterday. We will continue treatment with COVID-19 pneumonia with remdesivir (day 2/5), Decadron 6 mg daily to complete 10-day course, and empiric antibiotics. Will maintain patient on heparin infusion due to elevated troponins. Will follow cardiology recommendations. Appreciate pulmonology and cardiology input on the management of this patient. Critical care time 30 minutes spent reviewing charts, reviewing labs, reviewing imaging, and discussion with RN. 08/10/2021: Afebrile. On ventilator with FiO2 100%, PEEP 10. Highest troponin levels 2.038. Per cardiology, probably demand ischemia. Continue heparin infusion for 48 hours, and TTE once COVID-19 recovered. Continue remdesivir for full course. Continue Decadron and empiric antibiotics. Critical care time 30 minutes spent reviewing charts, reviewing labs, reviewing imaging, and discussion with RN. 08/11/2021: Afebrile. On vent with FiO2 100%, PEEP 10. Heparin been discontinued, per cardiology. Continue daily aspirin. TTE once COVID-19 recovered. Continue remdesivir day 03/01. Continue Decadron for full 10-day course and empiric antibiotics. Critical care time 30 minutes spent reviewing charts, reviewing labs, reviewing imaging, and discussion with RN. 08/12/2021: Afebrile; on vent with FiO2 100%, PEEP 10. Remdesivir day 03/31. LFTs improving, will check again tomorrow. Continue Decadron for full 10-day course and empiric antibiotics. Appreciate cardiology recommendations; continue daily aspirin and TTE once COVID-19 recovered. Critical care time 30 minutes spent reviewing charts, reviewing labs, reviewing imaging, and discussion with RN. 08/13/2021: Afebrile. On vent with FiO2 40%, PEEP 10. Completed remdesivir; continue to monitor for improving LFTs. Discussed with Dr. Welsh about treatment with Tocilizumab. Concerned however for severely elevated LFTs. Continue Decadron for full 10-day course; last day should be 08/19, then began slow taper. Empiric antibiotics. Appreciate cardiology recommendations; continue daily a spirin and TTE once COVID-19 recovered. Critical care time 30 minutes spent reviewing charts, reviewing labs, reviewing imaging, and discussion with RN. 08/14/2021: No significant changes overnight. Afebrile, on vent with FiO2 100%, PEEP 10. Not a candidate for Tocilizumab at this time due to significant elevated LFTs. Continue Decadron for full 10-day course, then slow taper. Continue empiric antibiotics. Will follow cardiology recommendations; continue daily aspirin and TTE once COVID-19 recovered. Critical care time 30 minutes spent reviewing charts, reviewing labs, reviewing imaging, and discussion with RN. 08/15/2021: Afebrile. On vent with FiO2 90%, PEEP 12. Decadron increased to 20 mg daily, with taper to begin on 08/19. Not a candidate for Tocilizumab at this time due to significant elevated LFTs; will continue to follow LFTs and readdress possible addition of Tocilizumab if less than 3x upper limit normal. Continue empiric antibiotics. Will follow cardiology recommendations; continue daily aspirin and TTE once COVID-19 recovered. Critical care time 30 minutes spent reviewing charts, reviewing labs, reviewing imaging, and discussion with RN. 08/16 Evaluated at bedside. No major clinical changes, remains on high ventilator settings. Continuing high-dose Decadron. Continue monitoring LFTs to see if patient will be tocilizumab candidate. Guarded prognosis plan of care discussed with bedside RN. 08/17 Patient evaluated at bedside. Team pulmonary Dr. Abdalla Contacted family today who have elected to make patient DNR/DNI. 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 Otherwise continue current plan. Poor prognosis. 08/18 No major clinical changes at this point. Patient evaluated at bedside. Continue supportive care. Otherwise no changes Informed by nursing that patient at 2143. Patient had had a bowel movement in the bed and when rolling him his oxygen saturations notably dropped and never recovered. He was already DNR. Disposition: Disposition/Orders: Diet: Diet: other Justicifation of Admission Dx: Justifications for Admission: Justification of Admission Dx: Yes KYRA RUIZ MD Aug 19, 2021 09:47
== END 2021-08-18 21:43 | DRG 207 ==
LOC: EEVIPCON 14:17 → ER 14:17 → ED HOLD 15:08 → 1 WEST ICU 16:22
PROVIDERS: ADMIT Student in an Organized Health Care Education/Training Program; ATTEND Student in an Organized Health Care Education/Training Program
PROC: 5A1955Z Respiratory Ventilation, Greater than 96 Consecutive Hours (ICD-10-PCS; principal; 2021-08-08)
PROC: XW033E5 Introduction of Remdesivir Anti-infective into Peripheral Vein, Percutaneous Approach, New Technology Group 5 (ICD-10-PCS; 2021-08-08)
PROC: 02HV33Z Insertion of Infusion Device into Superior Vena Cava, Percutaneous Approach (ICD-10-PCS; 2021-08-11)
PROC: 0BH17EZ Insertion of Endotracheal Airway into Trachea, Via Natural or Artificial Opening (ICD-10-PCS; 2021-08-17)
DX: U07.1 COVID-19 (principal); J96.01 Acute respiratory failure with hypoxia; I21.4 Non-ST elevation (NSTEMI) myocardial infarction; J12.82 Pneumonia due to coronavirus disease 2019; E43 Unspecified severe protein-calorie malnutrition; E87.1 Hypo-osmolality and hyponatremia; J81.1 Chronic pulmonary edema; N17.9 Acute kidney failure, unspecified; G83.9 Paralytic syndrome, unspecified; Z66 Do not resuscitate; Z68.38 Body mass index [BMI] 38.0-38.9, adult
CPT/HCPCS: 31500; 36415; 36556; 36600; 51702; 71045; 71275; 80048; 80053; 80061; 80076; 81001; 82550; 82805; 82962; 83605; 83880; 84484; 85007; 85025; 85027; 85379; 85520; 93005; 94002; 94003; J0330; J0456; J1100; J1644; J1940; J2250; J2543; J2704; J3010; J3490; J7030; J7050; J7060; Q9967; 99291-25; G0378